=== PATIENT | female | born 1945 | race Caucasian/White ===

== ENCOUNTER 2016-10-23 13:12 | Inpatient (IN) | payer MEDICARE, OTHER ==
[2016-10-23] MEDS ORDERED: Morphine INJ* 4 MG/ML 1 ML CARPUJECT IV ONE ×2 (13:47→16:17)
[2016-10-23] MEDS ORDERED: Ondansetron INJ* 2 MG/ML VIAL IV ONE (13:47)
[2016-10-23] MEDS ORDERED: NS 0.9% 1000 ML* 1,000 ML IV SCH (14:00)
[2016-10-23 15:26] LABS: Urine Bacteria Absent (Absent); Urine Bilirubin Negative (Negative); Urine Glucose Negative (Negative); Urine Nitrite Negative (Negative)
--- NOTE | 2016-10-23 15:30 | RAD ---
INDICATION: Right hip injury. COMPARISON: There are no prior studies available for comparison. TECHNIQUE: An AP view of the pelvis and frontal and lateral views of the right hip were obtained. FINDINGS: There is a transverse slightly impacted subcapital right femoral neck fracture. No other fractures are seen. Incidental note is made of mild bilateral osteoarthritic change in the hips. IMPRESSION: TRANSVERSE SLIGHTLY IMPACTED SUBCAPITAL RIGHT FEMORAL NECK FRACTURE.
[2016-10-23 15:42] LABS: Hematocrit 47 % (35-47); Hemoglobin 15.6 g/dl (12.0-16.0); Mean Corpuscular HGB Conc 33 g/dl (31-36); Mean Corpuscular Hemoglobin 33 pg (27-31); Mean Corpuscular Volume 98 fL (80-97); Mean Platelet Volume 9 um3 (7.4-10.4); Red Blood Count 4.76 10^6/ul (4.0-5.4); Red Cell Distribution Width 13 % (10.5-15); White Blood Count 8.8 10^3/ul (3.5-10.8)
[2016-10-23 16:00] LABS: Albumin 4.4 g/dL (3.2-5.2); BUN/Creatinine Ratio 17.5 (8-20); Calcium 10.3 mg/dL (8.6-10.3); EGFR African American 72.6 (>60); EGFR Non-African American 56.5 (>60); Globulin 3.4 g/dL (2-4); Total Bilirubin 0.7 mg/dL (0.2-1.0); Total Protein 7.8 g/dL (6.4-8.9)
--- NOTE | 2016-10-23 16:06 | RAD ---
HISTORY: Fall, right hip pain, right hip fracture COMPARISONS: None VIEWS:1: Single frontal portable view of the chest at 3:40 PM FINDINGS: LINES AND TUBES: None. CARDIOMEDIASTINAL SILHOUETTE: The cardiomediastinal silhouette is normal for portable technique. PLEURA: The costophrenic angles are sharp. No pleural abnormalities are noted. LUNG PARENCHYMA: There is hyperinflation. ABDOMEN: The upper abdomen is clear. There is no subphrenic gas. BONES AND SOFT TISSUES: No bone or soft tissue abnormalities are noted. IMPRESSION: HYPERINFLATION CONSISTENT WITH COPD
--- NOTE | 2016-10-23 16:19 | ED ---
Khris Lr Aidan, scribed for Paulo Lam MD on 10/23/16 at 1411 . Adult Trauma - HPI Summary HPI Summary: 71 y/o female presents to the ED with a complaint of acute, constant, moderate, right pelvic pain that resulted from her tripping over her dog and falling onto her right hip earlier today. Advil and Aleve did not alleviate much pain. Pt denies any abdominal pain, neck pain, CP, or wrist pain. No reported LOC. Hx of osteoporosis and dementia. 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 Hx Last Menstrual Period: 71 y/o ?: No Mechanism of Injury: Fall - tripped over a dog Mechanism of Injury (MVC): VS Stationary Object - Pt tripped over a stationary dog Ambulatory at the Scene: No Loss of Consciousness: no loss of consciousness Force: Direct - direct fall onto right hip and pelvis Restraints: None Onset/Duration: Started Hours Ago, Still Present Onset of Pain: Immediate Onset Severity: Moderate Current Severity: Mild Location: Abdomen/Pelvis - right pelvis and right hip Character: Sharp Aggravating Factor(s): Other - unknown Alleviating Factor(s): Other - unknown, advil and aleve did not alleviate Associated Signs & Symptoms: Positive: Negative Related History: Other: - Hx: osteoperosis - Allergy/Home Medications Allergies/Adverse Reactions: Allergies Allergy/AdvReac Type Severity Reaction Status Date / Time No Known Drug Allergy Allergy none Verified 10/23/16 14:22 PMH/Surg Hx/FS Hx/Imm Hx Musculoskeletal History: Reports: Hx Osteoporosis Neurological History: Reports: Hx Dementia Infectious Disease History: Denies: Traveled Outside the [place] in Last 30 Days - Family History Known Family History: Positive: Hypertension - Social History Occupation: Retired Lives: Alone Alcohol Use: Rare Hx Substance Use: No Smoking Status (MU): Never Smoked Tobacco Review of Systems Constitutional: Negative Eyes: Negative ENT: Negative Cardiovascular: Negative Respiratory: Negative Gastrointestinal: Negative Genitourinary: Negative Positive: Arthralgia - right hip and pelvic pain. Negative: Myalgia, Decreased ROM, Edema Skin: Negative Neurological: Negative Psychological: Normal All Other Systems Reviewed And Are Negative: Yes Physical Exam Triage Information Reviewed: Yes Vital Signs On Initial Exam: Initial Vitals Resp 15 10/23/16 14:22 Appearance: Positive: Well-Appearing, No Pain Distress Skin: Positive: Warm, Skin Color Reflects Adequate Perfusion, Dry Head/Face: Positive: Normal Head/Face Inspection Eyes: Positive: EOMI, PRAKASH ENT: Positive: Normal ENT inspection Neck: Positive: Supple, Nontender Respiratory/Lung Sounds: Positive: Clear to Auscultation, Breath Sounds Present Cardiovascular: Positive: RRR Abdomen Description: Positive: Nontender, Soft Bowel Sounds: Positive: Present Musculoskeletal: Positive: Other - tender right hip, no deformity. Negative: Strength/ROM Intact - Pt does not want to move her right leg Neurological: Positive: Normal, Sensory/Motor Intact, Alert, Oriented to Person Place, Time, Other - Dementia Psychiatric: Positive: Normal, Affect/Mood Appropriate Diagnostics - Vital Signs Vital Signs Resp 10/23/16 14:22 15 - Laboratory Lab Results: Lab Results 10/23/16 10/23/16 10/23/16 Range/Units 15:05 15:05 15:05 WBC 8.8 (3.5-10.8) 10^3/ul RBC 4.76 (4.0-5.4) 10^6/ul Hgb 15.6 (12.0-16.0) g/dl Hct 47 (35-47) % MCV 98 H (80-97) fL MCH 33 H (27-31) pg MCHC 33 (31-36) g/dl RDW 13 (10.5-15) % Plt Count 269 (150-450) 10^3/ul MPV 9 (7.4-10.4) um3 Neut % (Auto) 77.7 (38-83) % Lymph % (Auto) 14.7 L (25-47) % [place]ck[place] % (Auto) 5.7 (1-9) % Eos % (Auto) 1.0 (0-6) % Baso % (Auto) 0.9 (0-2) % Absolute Neuts (auto) 6.9 (1.5-7.7) 10^3/ul Absolute Lymphs (auto) 1.3 (1.0-4.8) 10^3/ul Absolute Monos (auto) 0.5 (0-0.8) 10^3/ul Absolute Eos (auto) 0.1 (0-0.6) 10^3/ul Absolute Basos (auto) 0.1 (0-0.2) 10^3/ul Absolute Nucleated RBC 0 10^3/ul Nucleated RBC % 0 INR (Anticoag Therapy) 0.84 L (0.89-1.11) APTT 29.1 (26.0-36.3) seconds Sodium (133-145) mmol/L Potassium Chloride (101-111) mmol/L Carbon Dioxide (22-32) mmol/L Anion Gap BUN (6-24) mg/dL Creatinine (0.51-0.95) mg/dL Est GFR ( Amer) (>60) Est GFR (Non-Af Amer) (>60) BUN/Creatinine Ratio (8-20) Glucose (70-100) mg/dL Calcium (8.6-10.3) mg/dL Total Bilirubin (0.2-1.0) mg/dL AST ALT (7-52) U/L Alkaline Phosphatase (34-104) U/L Total Protein (6.4-8.9) g/dL Albumin (3.2-5.2) g/dL Globulin (2-4) g/dL Albumin/Globulin Ratio (1-3) Urine Color Straw Urine Appearance Clear Urine pH 7.0 (5-9) Ur Specific [place] 1.004 L (1.010-1.030) Urine Protein Negative (Negative) Urine Ketones Negative (Negative) Urine Blood 1+ H (Negative) Urine Nitrate Negative (Negative) Urine Bilirubin Negative (Negative) Urine Urobilinogen Negative (Negative) Ur Leukocyte Esterase Negative (Negative) Urine WBC (Auto) Absent (Absent) Urine RBC (Auto) Trace(0-2/hpf) (Absent) Urine Bacteria Absent (Absent) Urine Glucose Negative (Negative) 10/23/16 Range/Units 15:05 WBC (3.5-10.8) 10^3/ul RBC (4.0-5.4) 10^6/ul Hgb (12.0-16.0) g/dl Hct (35-47) % MCV (80-97) fL MCH (27-31) pg MCHC (31-36) g/dl RDW (10.5-15) % Plt Count (150-450) 10^3/ul MPV (7.4-10.4) um3 Neut % (Auto) (38-83) % Lymph % (Auto) (25-47) % Mck[place] % (Auto) (1-9) % Eos % (Auto) (0-6) % Baso % (Auto) (0-2) % Absolute Neuts (auto) (1.5-7.7) 10^3/ul Absolute Lymphs (auto) (1.0-4.8) 10^3/ul Absolute Monos (auto) (0-0.8) 10^3/ul Absolute Eos (auto) (0-0.6) 10^3/ul Absolute Basos (auto) (0-0.2) 10^3/ul Absolute Nucleated RBC 10^3/ul Nucleated RBC % INR (Anticoag Therapy) (0.89-1.11) APTT (26.0-36.3) seconds Sodium 140 (133-145) mmol/L Potassium Pending Chloride 108 (101-111) mmol/L Carbon Dioxide 26 (22-32) mmol/L Anion Gap Pending BUN 17 (6-24) mg/dL Creatinine 0.97 H (0.51-0.95) mg/dL Est GFR ( Amer) 72.6 (>60) Est GFR (Non-Af Amer) 56.5 (>60) BUN/Creatinine Ratio 17.5 (8-20) Glucose 100 (70-100) mg/dL Calcium 10.3 (8.6-10.3) mg/dL Total Bilirubin 0.70 (0.2-1.0) mg/dL AST Pending ALT 20 (7-52) U/L Alkaline Phosphatase 118 H (34-104) U/L Total Protein 7.8 (6.4-8.9) g/dL Albumin 4.4 (3.2-5.2) g/dL Globulin 3.4 (2-4) g/dL Albumin/Globulin Ratio 1.3 (1-3) Urine Color Urine Appearance Urine pH (5-9) Ur Specific [place] (1.010-1.030) Urine Protein (Negative) Urine Ketones (Negative) Urine Blood (Negative) Urine Nitrate (Negative) Urine Bilirubin (Negative) Urine Urobilinogen (Negative) Ur Leukocyte Esterase (Negative) Urine WBC (Auto) (Absent) Urine RBC (Auto) (Absent) Urine Bacteria (Absent) Urine Glucose (Negative) Result Diagrams: 10/23/16 15:05 10/23/16 15:05 Lab Statement: Any lab studies that have been ordered have been reviewed, and results considered in the medical decision making process. - Radiology HIP/PELVIS XR Xray Interpretation: Positive (See Comments) - IMPRESSION: TRANSVERSE SLIGHTLY IMPACTED SUBCAPITAL RIGHT FEMORAL NECK FRACTURE. Radiology Interpretation Completed By: Radiologist Adult Trauma Course/Dx - Course Assessment/Plan: DISCUSSED RESTULTS WITH FAMILY/PATIENT. DISCUSSED WITH ORTHOPEDICS AND HOSPITALIST. ADMIT HOSPITALIST STABLE. - Diagnoses Provider Diagnoses: Hip fracture - Physician Notifications Discussed Care Of Patient With: Hospitalist, Whitney (Dr. Herrera) Time Discussed With Above Provider: 15:47 - Dr. Lam discussed the positive radiology results. the patient will be admitted. Instructed by Provider To: Admit As Inpatient Discharge - Discharge Plan Condition: Stable Disposition: ADMITTED TO [facility] The documentation as recorded by the Khris gibbs Aidan accurately reflects the service I personally performed and the decisions made by , Paulo Lam MD.
[2016-10-23 16:29] LABS: Potassium 3.9 mmol/L (3.5-5.0)
[2016-10-23] MEDS ORDERED: Ondansetron INJ* 2 MG/ML VIAL IV PRN (17:15)
[2016-10-23] MEDS ORDERED: Acetaminophen TAB* 325 MG PO PRN (17:15)
[2016-10-23] MEDS ORDERED: oxyCODONE/Acetamin 5/325 MG* TAB PO PRN (17:15)
[2016-10-23] MEDS ORDERED: LORazepam TAB(*) 1 MG PO PRN (17:35)
[2016-10-23] MEDS ORDERED: Morphine INJ* 4 MG/ML 1 ML CARPUJECT IV PRN (17:35)
[2016-10-23] MEDS ORDERED: oxyCODONE/Acetamin 5/325 MG* TAB ONE (17:37)
[2016-10-23] MEDS ORDERED: Enoxaparin(*) 40 MG/0.4 ML SYR SUBCUT SCH (18:00)
[2016-10-23] MEDS ORDERED: Nicotine PATCH 14 MG/24 HR* PATCH TRANSDERM SCH (18:00)
--- NOTE | 2016-10-23 19:43 | HP ---
CONTINUATION ADDENDUM AND ADDITIONAL ADDENDUM NOW INCLUDED ON THIS REPORT * ADMISSION HISTORY AND PHYSICAL: DATE OF ADMISSION: 10/23/16 PRIMARY CARE PROVIDER: Johnathan Hudson MD ADMITTING PROVIDER: ELSI Amanda CONSULTING ORTHOPEDIST: Willy Herrera MD SUPERVISING PHYSICIAN: Tommy Cannon MD * (DICTATED BY ELSI AMANDA) CHIEF COMPLAINT: Right hip pain. HISTORY OF PRESENT ILLNESS: This is a 71-year-old female with severe dementia, history of TIAs, hypertension, and hyperlipidemia who presented after a fall at home with complaints of right hip pain. The patient tripped over her dog at home, immediately complaining of right hip pain and unable to ambulate. EMS was called and she was subsequently transported to the emergency department. No concern of syncope. The patient recently moved to the area and was living with her son and daughter- in- law. She moved here from [place] just about 3 weeks ago and has yet to see her new primary care provider, but does have a pending appointment with Dr. Hudson. There have been no recent illnesses or other acute complaints. She is at home signal timer with her xphfaevy-qf-htt and home healthcare comes in the middle of the day for additional assistance. According to her nhunoxfj-hr-jpd and son, her last hospital admission was in July, which is shortly after her . It sounds like she was admitted with acute delirium and was having significant behavioral outbursts and it was after that hospital admission, it sounds like decision was made to move her, appear to be signal timer. PAST MEDICAL HISTORY: 1. Severe dementia. 2. Hypertension. 3. Hyperlipidemia. 4. History of prior TIAs. PAST SURGICAL HISTORY: Uterine prolapse repair. HOME MEDICATIONS: 1. Lipitor 10 mg p.o. daily. 2. Benazepril 40 mg p.o. daily. 3. Oxybutynin 5 mg p.o. daily. 4. Seroquel 25 mg p.o. daily. 5. Amlodipine 2.5 mg p.o. daily. SOCIAL HISTORY: The patient recently moved in with her son and jmybvtlr-yy-tos about 3 weeks ago from [place]. She drinks 1 to 2 alcoholic beverages nightly and has a half a pack of cigarettes daily for the last 50 plus years. REVIEW OF SYSTEMS: The patient is unable to provide a full review of systems, but seems to be negative. Her only complaint is right hip pain at this time. LABORATORY EVALUATION: CBC shows a white blood cell count of 8800; hemoglobin of 15.6 g/dL; and a platelet count of 269,000. INR is normal at 0.84. PTT is normal at 29. Comprehensive metabolic panel is unremarkable with a sodium of 140 mmol/L, potassium 3.9 mmol/L, BUN of 17, and creatinine 0.97 with an estimated GFR of 56.5. Transaminases and total bilirubin were within normal limits. Urinalysis is unremarkable. DIAGNOSTIC STUDIES/IMAGING: Hip and pelvis x-ray shows an impacted right femoral neck fracture. Chest x-ray shows hyperinflation consistent with COPD, but no acute process. EKG is pending. PHYSICAL EXAMINATION INITIAL VITAL SIGNS: Pulse 85 beats per minute, respiratory rate 16 per minute , oxygen saturation 98% on room air, and blood pressure of 121/82 mmHg. GENERAL: This is a 71-year-old female that actually appears younger than her stated age who appears to be umiq-fv-iwdttvouxb uncomfortable. She is accompanied by her ftjbfodt-ce-csq and son. HEENT: Head is normocephalic, atraumatic. Mucous membranes are pink and moist. RESPIRATORY: Lungs are clear to auscultation without wheezes, crackles, or rhonchi. CARDIOVASCULAR: Heart has a regular rate and rhythm without murmurs, rubs, or gallops. ABDOMEN: Abdomen is soft and nontender to palpation. EXTREMITIES: Right lower extremity is externally rotated. No edema appreciated. Some tenderness to palpation over the right hip. SKIN: Limited exam, shows no concerning rashes or lesions. PSYCH: The patient is alert, but seems to be confused. ASSESSMENT AND PLAN: This is a 71-year-old female with advanced dementia as well as history of prior transient ischemic attacks, hypertension, and hyperlipidemia who presents after a fall at home sustaining a right femoral neck fracture. 1. Right femoral neck fracture - Dr. Herrera, orthopedic surgeon, is consulting with plans for fixation tomorrow afternoon. The patient is still having difficulty with pain control. She seems to be tolerating morphine well in the emergency department, but perhaps is not having significant lasting effect. We will try oral oxycodone. We could trial a muscle relaxant as well. The patient's family states that she trialed VALIUM in the past, which did not seem to have a significant sedating effect, but did cause confusion about 24 hours later. 2. Preoperative evaluation - the patient does not have any significant cardiopulmonary history. Her chest x-ray is certainly suggestive of chronic obstructive pulmonary disease. She does not carry a diagnosis of chronic obstructive pulmonary disease and she does have a significant smoking history. She is not hypoxic nor does she have any wheezing or rhonchi appreciated on exam. Her EKG is still pending at this time, but otherwise, there are no acute medical concerns that would prove to be an absolute contraindication to the planned procedure. We would recommend premedicating her with an albuterol neb prior to surgery. 3. Severe dementia - the patient does seem to be fairly appropriate with limited conversation, but is obviously confused. We will continue her home doses of Seroquel. Anticipate that she will likely experience some elements of delirium between the opioid medications in her hospitalization and pending surgery and did discuss this with the patient's family. 4. Hypertension: We will hold her amlodipine and benazepril perioperatively and can likely resume postop day 1. 5. Hyperlipidemia: Continue statin. 6. History of transient ischemic attacks - no obvious symptoms of transient ischemic attack or cerebrovascular accident contributing to this acute fall. 7. Code status: The patient's family reports that she is DNR. 8. Health care proxy is listed as her son, Joao Ellis. 9. DVT prophylaxis: We will place the patient on Lovenox 40 mg subcu daily with planned procedure tomorrow evening. Tomorrow's dose of Lovenox can be held and resumed per Orthopedic recommendations on postop day 1. DISPOSITION: The patient is being admitted to inpatient for right hip fracture. No absolute contraindication to planned surgical procedure for tomorrow. EKG is pending at this time. The patient will be n.p.o. to solids after midnight and completely n.p.o. starting at 1400 hours tomorrow per Anesthesia's recommendations. ELSI AMANDA ADDENDUM: Reviewed EKG performed in the emergency department, there is some significant artifact affecting the precordial leads, but no obvious signs of ischemia and it was difficult to get better quality EKG due to the patient's level of cooperation. Based on these findings, there is no absolute contraindication to plan surgical procedure for tomorrow. ELSI AMANDA CC: Dr. Hudson * [id number]/CPS #: [id number]/CPS #: [id number]/CPS #: [id number] MTDRody
--- NOTE | 2016-10-23 19:43 | CONS ---
CONSULTATION REPORT: DATE OF CONSULT: 10/23/16 CHIEF COMPLAINT: Right hip injury. HISTORY OF PRESENT ILLNESS: Obtained from the patient's daughter. The patient is a 71-year-old female who presented to the emergency room approximately 1 o' clock this afternoon with complaints of right hip pain after she tripped and fell over her dog at home. The patient has a home health aide during the middle of the day who was present with the patient at the time of the injury. She states that there was no loss of consciousness or head injury at the time. The patient was unable to get up off the floor and EMS was called. She denies history of injury to the hip previously. She denies any paresthesias or numbness distally. PAST MEDICAL HISTORY: Hypertension, hyperlipidemia, dementia, questionable TIAs. RECENT HOSPITALIZATIONS: The patient was admitted in July for altered mental status after the of her . PAST SURGICAL HISTORY: Uterine prolapse repair. CURRENT MEDICATIONS: 1. Lipitor 10 mg p.o. q. day. 2. Oxybutynin XL 5 mg p.o. q.a.m. 3. Amlodipine 2.5 mg p.o. q.a.m. 4. Lotensin 40 mg p.o. q.p.m. 5. Seroquel 25 mg p.o. q.a.m. and 1400. ALLERGIES: No known drug allergies. SOCIAL HISTORY: The patient lives with her daughter. She smokes a half a pack of cigarettes per day. She drinks 1 to 2 alcoholic beverages per day. REVIEW OF SYSTEMS: Unable to obtain due to dementia. PHYSICAL EXAM: The patient is 5 feet 6 inches, 120 pounds, blood pressure 121/ 82, pulse is 85, respirations 16. General: She is a well-developed, thin female, in no acute distress at rest. She is alert; however, she is only oriented to self. HEENT: Normocephalic, atraumatic. Her hearing and vision are grossly intact. Neck: Supple. Trachea is midline. There is no lymphadenopathy. Cardiovascular: Regular rate and rhythm. No murmurs, rubs, or gallops. Lungs are clear to auscultation bilaterally, although slightly diminished bilaterally. Abdomen is soft, nondistended, and nontender. Extremities: Exam of the right lower extremity, skin is intact without abrasions or open wounds. There is no edema, ecchymosis, or gross deformity. The patient is significantly tender to palpation over the anterior and lateral aspect of the hip and proximal thigh. She is nontender throughout the knee or lower leg. She is able to dorsiflex and plantar flex at the ankle. She has full flexion and extension of her MTP joints. Sensation to light touch is intact to all nerve distributions. She has a 2+ dorsalis pedis pulse. DIAGNOSTIC STUDIES/LAB DATA: Imaging: AP and lateral hip and AP pelvis were obtained and reviewed. They showed a transverse slightly impacted subcapital right femoral neck fracture. Laboratory data: White blood cells 8.8, hemoglobin 15.6, hematocrit 47, platelet count 269. INR 0.84, PTT 29.1. Chemistry is within normal limits. IMPRESSION: Ms. Garner is a 71-year-old female with a history of severe dementia, who presents to the emergency room with an impacted femoral neck fracture. PLAN: It was discussed with the patient's daughter, who is her historian that the patient will undergo right hip ORIF by Dr. Herrera on 10/24/16. The patient will be admitted to the medical service at this time. Orthopedics will continue to follow. Thank you for this consultation. ELSI OLIVARES [id number]/[facility] [place] #: [id number] MTDD
--- NOTE | 2016-10-23 19:51 | HP ---
CC: Dr. Hudson ADMISSION HISTORY AND PHYSICAL: DATE OF ADMISSION: 10/23/16 ADDENDUM: PHYSICAL EXAMINATION GENERAL: This is a 71-year-old female that actually appears younger than her stated age who appears to be ickd-lb-fyqqqdfnnv uncomfortable. She is accompanied by her raeolvxb-cf-smx and son. HEENT: Head is normocephalic, atraumatic. Mucous membranes are pink and moist. RESPIRATORY: Lungs are clear to auscultation without wheezes, crackles, or rhonchi. CARDIOVASCULAR: Heart has a regular rate and rhythm without murmurs, rubs, or gallops. ABDOMEN: Abdomen is soft and nontender to palpation. EXTREMITIES: Right lower extremity is externally rotated. No edema appreciated. Some tenderness to palpation over the right hip. SKIN: Limited exam, shows no concerning rashes or lesions. PSYCH: The patient is alert, but seems to be confused. ASSESSMENT AND PLAN: This is a 71-year-old female with advanced dementia as well as history of prior transient ischemic attacks, hypertension, and hyperlipidemia who presents after a fall at home sustaining a right femoral neck fracture. 1. Right femoral neck fracture - Dr. Herrera, orthopedic surgeon, is consulting with plans for fixation tomorrow afternoon. The patient is still having difficulty with pain control. She seems to be tolerating morphine well in the emergency department, but perhaps is not having significant lasting effect. We will try oral oxycodone. We could trial a muscle relaxant as well. The patient's family states that she trialed VALIUM in the past, which did not seem to have a significant sedating effect, but did cause confusion about 24 hours later. 2. Preoperative evaluation - the patient does not have any significant cardiopulmonary history. Her chest x-ray is certainly suggestive of chronic obstructive pulmonary disease. She does not carry a diagnosis of chronic obstructive pulmonary disease and she does have a significant smoking history. She is not hypoxic nor does she have any wheezing or rhonchi appreciated on exam. Her EKG is still pending at this time, but otherwise, there are no acute medical concerns that would prove to be an absolute contraindication to the planned procedure. We would recommend premedicating her with an albuterol neb prior to surgery. This might be helpful to avoid significant desaturations by promoting larger dilatation perioperatively. 3. Severe dementia - the patient does seem to be fairly appropriate with limited conversation, but is obviously confused. We will continue her home doses of Seroquel. Anticipate that she will likely experience some elements of delirium between the opioid medications in her hospitalization and pending surgery and did discuss this with the patient's family. 4. Hypertension: We will hold her amlodipine and benazepril perioperatively and can likely resume postop day 1. 5. Hyperlipidemia: Continue statin. 6. History of transient ischemic attacks - no obvious symptoms of transient ischemic attack or cerebrovascular accident contributing to this acute fall. 7. Code status: The patient's family reports that she is DNR. 8. Health care proxy is listed as her son, Joao Ellis. 9. DVT prophylaxis: We will place the patient on Lovenox 40 mg subcu daily with planned procedure tomorrow evening. Tomorrow's dose of Lovenox can be held and resumed per Orthopedic recommendations on postop day 1. DISPOSITION: The patient is being admitted to inpatient for right hip fracture. No absolute contraindication to planned surgical procedure for tomorrow. EKG is pending at this time. The patient will be n.p.o. to solids after midnight and completely n.p.o. starting at 1400 hours tomorrow per Anesthesia's recommendations. ELSI AMANDA [id number]/CPS #: [id number] MTDD
--- NOTE | 2016-10-23 20:59 | HP ---
ADMISSION HISTORY AND PHYSICAL: ADDENDUM: Reviewed EKG performed in the emergency department, there is some significant artifact affecting the precordial leads, but no obvious signs of ischemia and it was difficult to get better quality EKG due to the patient's level of cooperation. Based on these findings, there is no absolute contraindication to plan surgical procedure for tomorrow. ELSI AMANDA [id number]/[facility] #: [id number] LEONARDO
[2016-10-23] MEDS: Morphine INJ* 4 MG/ML 1 ML CARPUJECT IV PRN (23:32)
[2016-10-24] MEDS: Morphine INJ* 4 MG/ML 1 ML CARPUJECT IV PRN ×3 (06:29→23:02)
[2016-10-24 06:57] LABS: Hematocrit 39 % (35-47); Mean Corpuscular HGB Conc 34 g/dl (31-36); Mean Corpuscular Hemoglobin 33 pg (27-31); Mean Corpuscular Volume 98 fL (80-97); Mean Platelet Volume 8 um3 (7.4-10.4); Red Blood Count 3.95 10^6/ul (4.0-5.4); Red Cell Distribution Width 13 % (10.5-15); White Blood Count 6.1 10^3/ul (3.5-10.8)
[2016-10-24 08:00] LABS: BUN/Creatinine Ratio 17.4 (8-20); Calcium 9.1 mg/dL (8.6-10.3); EGFR African American 77.2 (>60)
[2016-10-24 08:18] LABS: Potassium 3.8 mmol/L (3.5-5.0)
[2016-10-24] MEDS: Nicotine PATCH 14 MG/24 HR* PATCH TRANSDERM SCH (09:13)
[2016-10-24] MEDS: Atorvastatin* 10 MG TAB PO SCH (09:13)
[2016-10-24] MEDS: QUEtiapine TAB* 25 MG PO SCH ×2 (09:13→14:47)
[2016-10-24] MEDS ORDERED: Bupivacaine 0.25% SDV* 30 ML ONE (14:13)
[2016-10-24] MEDS ORDERED: ceFAZolin 2 GM PREMIX (*) 2 GM/50 ML BAG IVPB ONE (14:33)
[2016-10-24] MEDS ORDERED: Buffered Lidocaine 1% SYR 3ML* 3 ML/SYR SYRINGE ONE (14:36)
[2016-10-24] MEDS ORDERED: Midazolam* 1 MG/ML 5 ML VIAL (5 MG) ONE (14:53)
[2016-10-24] MEDS ORDERED: EPHEDrine (Pressors)* 50 MG/ML VIAL ONE (15:30)
[2016-10-24] MEDS ORDERED: Phenylephrine IV* 40 MCG/ML 10 ML SYRINGE ONE (15:44)
[2016-10-24] MEDS ORDERED: Ondansetron INJ* 2 MG/ML VIAL IV PRN (16:03)
--- NOTE | 2016-10-24 16:50 | RAD ---
CPT II Codes: 6045F INDICATION: Right hip ORIF TECHNIQUE: Intraoperative fluoroscopy was provided during medullary screw ORIF of a right hip fracture. FINDINGS: 4 spot films depict anatomic placement of 3 medullary screws spanning the right femoral neck and greater trochanter. Fluoroscopy time: 39 seconds IMPRESSION: As above.
--- NOTE | 2016-10-24 17:48 | PN ---
Subjective Date of Service: 10/24/16 Interval History: Sleeping comfortably Discussed care with family at bedside Objective Active Medications: Acetaminophen (Tylenol Tab*) 650 mg PO Q4H PRN PRN Reason: FEVER/PAIN Atorvastatin Calcium (Lipitor*) 10 mg PO DAILY [facility] Last Admin: 10/24/16 09:13 Dose: 10 mg Lorazepam (Ativan Tab(*)) 1 mg PO Q6H PRN PRN Reason: muscle spasm Morphine Sulfate (Morphine Inj (Syringe)*) 4 mg IV Q2H PRN PRN Reason: PAIN Last Admin: 10/24/16 09:16 Dose: 4 mg Nicotine (Nicotine Patch 14 Mg/24 Hr*) 1 patch TRANSDERM Q24HR [facility] Last Admin: 10/24/16 09:13 Dose: Not Given Ondansetron HCl (Zofran Inj*) 4 mg IV Q4H PRN PRN Reason: NAUSEA/VOMITING Ondansetron HCl (Zofran Inj*) 4 mg IV ONCE PRN PRN Reason: NAUSEA/VOMITING Stop: 10/24/16 21:03 Oxycodone/Acetaminophen (Percocet 5/325 Tab*) 1 tab PO Q4H PRN PRN Reason: Pain Last Admin: 10/23/16 17:39 Dose: 1 tab Pharmacy Profile Note (Nicotine Patch Removal Note*) 1 note PATCH OFF 2100 [facility] Quetiapine Fumarate (Seroquel Tab*) 25 mg PO 0900,1400 [facility] Last Admin: 10/24/16 14:47 Dose: Not Given Vital Signs 10/23/16 10/23/16 10/23/16 18:14 18:15 18:24 Temperature 99.6 F 99.6 F Pulse Rate 83 83 Respiratory 16 16 Rate Blood Pressure 129/70 129/70 (mmHg) O2 Sat by Pulse 100 100 Oximetry 10/23/16 10/23/16 10/23/16 19:23 19:24 19:39 Temperature 98.9 F Pulse Rate 82 Respiratory 16 16 18 Rate Blood Pressure 142/61 (mmHg) O2 Sat by Pulse 97 Oximetry 10/23/16 10/23/16 10/24/16 23:32 23:50 00:32 Temperature 98.6 F Pulse Rate 75 Respiratory 20 16 18 Rate Blood Pressure 124/64 (mmHg) O2 Sat by Pulse 97 Oximetry 10/24/16 10/24/16 10/24/16 03:24 06:29 07:29 Temperature 98.9 F Pulse Rate 64 Respiratory 16 22 20 Rate Blood Pressure 117/66 (mmHg) O2 Sat by Pulse 96 Oximetry 10/24/16 10/24/16 10/24/16 07:30 07:45 09:16 Temperature 98.9 F Pulse Rate 81 Respiratory 20 18 18 Rate Blood Pressure 120/64 (mmHg) O2 Sat by Pulse 96 Oximetry 10/24/16 10/24/16 10/24/16 10:16 13:36 14:22 Temperature 98.6 F 99.5 F Pulse Rate 79 91 Respiratory 16 18 15 Rate Blood Pressure 120/71 132/72 (mmHg) O2 Sat by Pulse 97 95 Oximetry 10/24/16 10/24/16 10/24/16 16:00 16:05 16:10 Temperature 99.0 F Pulse Rate 81 77 61 Respiratory 12 12 12 Rate Blood Pressure 104/47 96/49 96/53 (mmHg) O2 Sat by Pulse 100 100 100 Oximetry 10/24/16 10/24/16 10/24/16 16:15 16:30 16:45 Temperature Pulse Rate 70 74 80 Respiratory 12 12 14 Rate Blood Pressure 117/52 96/48 96/57 (mmHg) O2 Sat by Pulse 99 99 97 Oximetry Oxygen Devices in Use Now: None Appearance: NAD Eyes: No Scleral Icterus, PERRLA Ears/Nose/Mouth/Throat: NL Teeth, Lips, Gums, Clear Oropharnyx, Mucous Membranes Moist Neck: NL Appearance and Movements; NL JVP, Trachea Midline Respiratory: Symmetrical Chest Expansion and Respiratory Effort, Clear to Auscultation Cardiovascular: NL Sounds; No Murmurs; No JVD, RRR Abdominal: NL Sounds; No Tenderness; No Distention, No Hepatosplenomegaly Lymphatic: No Cervical Adenopathy Neurological: - - Asleep, wakes easy to name Result Diagrams: 10/24/16 06:39 10/24/16 06:39 Additional Lab and Data: Lab Results 10/23/16 10/23/16 10/23/16 Range/Units 15:05 15:05 15:05 WBC 8.8 (3.5-10.8) 10^3/ul RBC 4.76 (4.0-5.4) 10^6/ul Hgb 15.6 (12.0-16.0) g/dl Hct 47 (35-47) % MCV 98 H (80-97) fL MCH 33 H (27-31) pg MCHC 33 (31-36) g/dl RDW 13 (10.5-15) % Plt Count 269 (150-450) 10^3/ul MPV 9 (7.4-10.4) um3 Neut % (Auto) 77.7 (38-83) % Lymph % (Auto) 14.7 L (25-47) % [place] % (Auto) 5.7 (1-9) % Eos % (Auto) 1.0 (0-6) % Baso % (Auto) 0.9 (0-2) % Absolute Neuts (auto) 6.9 (1.5-7.7) 10^3/ul Absolute Lymphs (auto) 1.3 (1.0-4.8) 10^3/ul Absolute Monos (auto) 0.5 (0-0.8) 10^3/ul Absolute Eos (auto) 0.1 (0-0.6) 10^3/ul Absolute Basos (auto) 0.1 (0-0.2) 10^3/ul Absolute Nucleated RBC 0 10^3/ul Nucleated RBC % 0 INR (Anticoag Therapy) 0.84 L (0.89-1.11) APTT 29.1 (26.0-36.3) seconds Sodium (133-145) mmol/L Potassium Chloride (101-111) mmol/L Carbon Dioxide (22-32) mmol/L Anion Gap BUN (6-24) mg/dL Creatinine (0.51-0.95) mg/dL Est GFR ( Amer) (>60) Est GFR (Non-Af Amer) (>60) BUN/Creatinine Ratio (8-20) Glucose (70-100) mg/dL Calcium (8.6-10.3) mg/dL Total Bilirubin (0.2-1.0) mg/dL AST ALT (7-52) U/L Alkaline Phosphatase (34-104) U/L Total Protein (6.4-8.9) g/dL Albumin (3.2-5.2) g/dL Globulin (2-4) g/dL Albumin/Globulin Ratio (1-3) Urine Color Straw Urine Appearance Clear Urine pH 7.0 (5-9) Ur Specific [place] 1.004 L (1.010-1.030) Urine Protein Negative (Negative) Urine Ketones Negative (Negative) Urine Blood 1+ H (Negative) Urine Nitrate Negative (Negative) Urine Bilirubin Negative (Negative) Urine Urobilinogen Negative (Negative) Ur Leukocyte Esterase Negative (Negative) Urine WBC (Auto) Absent (Absent) Urine RBC (Auto) Trace(0-2/hpf) (Absent) Urine Bacteria Absent (Absent) Urine Glucose Negative (Negative) 10/23/16 Range/Units 15:05 WBC (3.5-10.8) 10^3/ul RBC (4.0-5.4) 10^6/ul Hgb (12.0-16.0) g/dl Hct (35-47) % MCV (80-97) fL MCH (27-31) pg MCHC (31-36) g/dl RDW (10.5-15) % Plt Count (150-450) 10^3/ul MPV (7.4-10.4) um3 Neut % (Auto) (38-83) % Lymph % (Auto) (25-47) % [place] % (Auto) (1-9) % Eos % (Auto) (0-6) % Baso % (Auto) (0-2) % Absolute Neuts (auto) (1.5-7.7) 10^3/ul Absolute Lymphs (auto) (1.0-4.8) 10^3/ul Absolute Monos (auto) (0-0.8) 10^3/ul Absolute Eos (auto) (0-0.6) 10^3/ul Absolute Basos (auto) (0-0.2) 10^3/ul Absolute Nucleated RBC 10^3/ul Nucleated RBC % INR (Anticoag Therapy) (0.89-1.11) APTT (26.0-36.3) seconds Sodium 140 (133-145) mmol/L Potassium Pending Chloride 108 (101-111) mmol/L Carbon Dioxide 26 (22-32) mmol/L Anion Gap Pending BUN 17 (6-24) mg/dL Creatinine 0.97 H (0.51-0.95) mg/dL Est GFR ( Amer) 72.6 (>60) Est GFR (Non-Af Amer) 56.5 (>60) BUN/Creatinine Ratio 17.5 (8-20) Glucose 100 (70-100) mg/dL Calcium 10.3 (8.6-10.3) mg/dL Total Bilirubin 0.70 (0.2-1.0) mg/dL AST Pending ALT 20 (7-52) U/L Alkaline Phosphatase 118 H (34-104) U/L Total Protein 7.8 (6.4-8.9) g/dL Albumin 4.4 (3.2-5.2) g/dL Globulin 3.4 (2-4) g/dL Albumin/Globulin Ratio 1.3 (1-3) Urine Color Urine Appearance Urine pH (5-9) Ur Specific [place] (1.010-1.030) Urine Protein (Negative) Urine Ketones (Negative) Urine Blood (Negative) Urine Nitrate (Negative) Urine Bilirubin (Negative) Urine Urobilinogen (Negative) Ur Leukocyte Esterase (Negative) Urine WBC (Auto) (Absent) Urine RBC (Auto) (Absent) Urine Bacteria (Absent) Urine Glucose (Negative) Assess/Plan/Problems-Billing Assessment: 71 yo F with advanced frontotemproal dementia, HTN, HLD, h/o TIAs, p/w mechanical fall and femoral neck fracture - Patient Problems (1) Femoral neck fracture Comment: to OR today unclear how she will cooperate with PT/OT (2) Frontotemporal dementia Comment: seroquel suspect behavioral disturbances to develop and will need tx as appropriate. Family expects and understands this senario (3) Hypertension Comment: holding meds reassess after surgery (4) Hyperlipidemia Comment: atorvastatin 10mg (5) DVT prophylaxis Comment: per ortho
[2016-10-24] MEDS ORDERED: Morphine INJ* 2 MG/ML 1 ML CARPUJECT IV PRN (20:53)
[2016-10-24] MEDS: Acetaminop/Codeine 30 MG TAB* 1 TAB (300 MG/30 MG) PO PRN (21:10)
[2016-10-24] MEDS: Nicotine Patch Removal NOTE PATCH OFF SCH (21:36)
[2016-10-24] MEDS: ceFAZolin 1 GM in Dextrose (*) 1 GM/50 ML BAG IVPB SCH (22:37)
[2016-10-24] MEDS ORDERED: QUEtiapine TAB* 25 MG PO ONE (22:50)
[2016-10-25] MEDS: Morphine INJ* 4 MG/ML 1 ML CARPUJECT IV PRN ×4 (02:28→21:54)
[2016-10-25] MEDS: ceFAZolin 1 GM in Dextrose (*) 1 GM/50 ML BAG IVPB SCH (06:00)
[2016-10-25 06:13] LABS: Hematocrit 37 % (35-47); Hemoglobin 12.5 g/dl (12.0-16.0); Mean Corpuscular HGB Conc 34 g/dl (31-36); Mean Corpuscular Hemoglobin 33 pg (27-31); Mean Corpuscular Volume 98 fL (80-97); Mean Platelet Volume 8 um3 (7.4-10.4); Red Blood Count 3.75 10^6/ul (4.0-5.4); Red Cell Distribution Width 13 % (10.5-15); White Blood Count 7.1 10^3/ul (3.5-10.8)
[2016-10-25 06:29] LABS: BUN/Creatinine Ratio 14.3 (8-20); Calcium 8.8 mg/dL (8.6-10.3); EGFR African American 105.8 (>60); EGFR Non-African American 82.3 (>60); Potassium 3.4 mmol/L (3.5-5.0)
[2016-10-25] MEDS ORDERED: Potassium Chlor TAB* 20 MEQ TAB.ER PO ONE (07:21)
[2016-10-25] MEDS: Atorvastatin* 10 MG TAB PO SCH (09:43)
[2016-10-25] MEDS: Acetaminop/Codeine 30 MG TAB* 1 TAB (300 MG/30 MG) PO PRN ×2 (09:43→21:53)
[2016-10-25] MEDS: QUEtiapine TAB* 25 MG PO SCH ×2 (09:43→14:07)
[2016-10-25] MEDS: Heparin VIAL(*) 5000 UNITS/ML VIAL (FIVE THOUSAND) SUBCUT SCH ×2 (09:47→21:53)
[2016-10-25] MEDS: Nicotine PATCH 14 MG/24 HR* PATCH TRANSDERM SCH (09:48)
[2016-10-25] MEDS ORDERED: Haloperidol INJ IV/IM* 5 MG/ML AMP ONE (16:19)
--- NOTE | 2016-10-25 17:54 | PN ---
Subjective Date of Service: 10/25/16 Interval History: Seen and examined. has no complaints. She is AOx1 and unable to participate meaningfully in the ROS Objective Active Medications: Acetaminophen (Tylenol Tab*) 650 mg PO Q4H PRN PRN Reason: FEVER/PAIN Acetaminophen/Codeine Phosphate (Tylenol/Codeine 30 Mg Tab*) 1 tab PO Q4H PRN PRN Reason: PAIN - MODERATE Last Admin: 10/25/16 09:43 Dose: 1 tab Atorvastatin Calcium (Lipitor*) 10 mg PO DAILY [facility] Last Admin: 10/25/16 09:43 Dose: 10 mg Haloperidol Lactate (Haldol Inj Iv/Im*) 2 mg IV SLOW PU Q6H PRN PRN Reason: AGITATION Heparin Sodium (Porcine) (Heparin Vial(*)) 5,000 units SUBCUT BID [facility] Last Admin: 10/25/16 09:47 Dose: 5,000 units Lactated Ringer's (Lactated Ringers 1000 Ml Bag*) 1,000 mls @ 100 mls/hr IV PER RATE [facility] Last Admin: 10/24/16 21:20 Dose: 100 mls/hr Lorazepam (Ativan Tab(*)) 1 mg PO Q6H PRN PRN Reason: muscle spasm Morphine Sulfate (Morphine Inj (Syringe)*) 4 mg IV Q2H PRN PRN Reason: PAIN Last Admin: 10/25/16 15:06 Dose: 4 mg Nicotine (Nicotine Patch 14 Mg/24 Hr*) 1 patch TRANSDERM Q24HR [facility] Last Admin: 10/25/16 09:48 Dose: Not Given Ondansetron HCl (Zofran Inj*) 4 mg IV Q4H PRN PRN Reason: NAUSEA/VOMITING Pharmacy Profile Note (Nicotine Patch Removal Note*) 1 note PATCH OFF 2100 [facility] Last Admin: 10/24/16 21:36 Dose: Not Given Quetiapine Fumarate (Seroquel Tab*) 25 mg PO 0900,1400 [facility] Last Admin: 10/25/16 14:07 Dose: 25 mg Vital Signs 10/24/16 10/24/16 10/24/16 18:00 18:30 19:00 Temperature Pulse Rate 71 66 71 Respiratory 14 12 14 Rate Blood Pressure 117/61 119/65 144/73 (mmHg) O2 Sat by Pulse 95 95 97 Oximetry 10/24/16 10/24/16 10/24/16 19:30 20:00 20:30 Temperature 98.2 F 98.2 F Pulse Rate 69 71 56 Respiratory 16 14 17 Rate Blood Pressure 139/72 139/71 140/70 (mmHg) O2 Sat by Pulse 98 97 99 Oximetry 10/24/16 10/24/16 10/24/16 21:10 21:31 21:37 Temperature 98.8 F Pulse Rate 84 Respiratory 17 17 16 Rate Blood Pressure 143/61 (mmHg) O2 Sat by Pulse 99 Oximetry 10/24/16 10/24/16 10/24/16 22:31 22:43 23:02 Temperature 98.7 F Pulse Rate 123 Respiratory 17 18 17 Rate Blood Pressure 140/78 (mmHg) O2 Sat by Pulse 94 Oximetry 10/24/16 10/25/16 10/25/16 23:10 00:02 00:13 Temperature 98.1 F Pulse Rate 96 Respiratory 17 17 18 Rate Blood Pressure 158/69 (mmHg) O2 Sat by Pulse 94 Oximetry 10/25/16 10/25/16 10/25/16 02:28 02:31 03:28 Temperature 98.1 F Pulse Rate 87 Respiratory 17 18 16 Rate Blood Pressure 139/72 (mmHg) O2 Sat by Pulse 94 Oximetry 10/25/16 10/25/16 10/25/16 04:24 05:49 06:49 Temperature 98.5 F Pulse Rate 96 Respiratory 16 17 16 Rate Blood Pressure 126/70 (mmHg) O2 Sat by Pulse 94 Oximetry 10/25/16 10/25/16 10/25/16 07:34 08:00 09:43 Temperature 98.6 F Pulse Rate 83 Respiratory 16 16 16 Rate Blood Pressure 145/67 (mmHg) O2 Sat by Pulse 94 94 Oximetry 10/25/16 10/25/16 10/25/16 11:43 15:06 16:06 Temperature Pulse Rate Respiratory 16 16 18 Rate Blood Pressure (mmHg) O2 Sat by Pulse Oximetry 10/25/16 16:20 Temperature 98.3 F Pulse Rate 125 Respiratory Rate Blood Pressure 125/80 (mmHg) O2 Sat by Pulse 98 Oximetry Oxygen Devices in Use Now: None Appearance: NAD Eyes: No Scleral Icterus, PERRLA Ears/Nose/Mouth/Throat: Clear Oropharnyx, Mucous Membranes Moist Neck: NL Appearance and Movements; NL JVP, Trachea Midline Respiratory: Symmetrical Chest Expansion and Respiratory Effort, Clear to Auscultation Cardiovascular: RRR Abdominal: NL Sounds; No Tenderness; No Distention, No Hepatosplenomegaly Lymphatic: No Cervical Adenopathy Neurological: - - AOx1 Result Diagrams: 10/25/16 05:36 10/25/16 05:36 Additional Lab and Data: Lab Results 10/23/16 10/23/16 10/23/16 Range/Units 15:05 15:05 15:05 WBC 8.8 (3.5-10.8) 10^3/ul RBC 4.76 (4.0-5.4) 10^6/ul Hgb 15.6 (12.0-16.0) g/dl Hct 47 (35-47) % MCV 98 H (80-97) fL MCH 33 H (27-31) pg MCHC 33 (31-36) g/dl RDW 13 (10.5-15) % Plt Count 269 (150-450) 10^3/ul MPV 9 (7.4-10.4) um3 Neut % (Auto) 77.7 (38-83) % Lymph % (Auto) 14.7 L (25-47) % [place] % (Auto) 5.7 (1-9) % Eos % (Auto) 1.0 (0-6) % Baso % (Auto) 0.9 (0-2) % Absolute Neuts (auto) 6.9 (1.5-7.7) 10^3/ul Absolute Lymphs (auto) 1.3 (1.0-4.8) 10^3/ul Absolute Monos (auto) 0.5 (0-0.8) 10^3/ul Absolute Eos (auto) 0.1 (0-0.6) 10^3/ul Absolute Basos (auto) 0.1 (0-0.2) 10^3/ul Absolute Nucleated RBC 0 10^3/ul Nucleated RBC % 0 INR (Anticoag Therapy) 0.84 L (0.89-1.11) APTT 29.1 (26.0-36.3) seconds Sodium (133-145) mmol/L Potassium Chloride (101-111) mmol/L Carbon Dioxide (22-32) mmol/L Anion Gap BUN (6-24) mg/dL Creatinine (0.51-0.95) mg/dL Est GFR ( Amer) (>60) Est GFR (Non-Af Amer) (>60) BUN/Creatinine Ratio (8-20) Glucose (70-100) mg/dL Calcium (8.6-10.3) mg/dL Total Bilirubin (0.2-1.0) mg/dL AST ALT (7-52) U/L Alkaline Phosphatase (34-104) U/L Total Protein (6.4-8.9) g/dL Albumin (3.2-5.2) g/dL Globulin (2-4) g/dL Albumin/Globulin Ratio (1-3) Urine Color Straw Urine Appearance Clear Urine pH 7.0 (5-9) Ur Specific [place] 1.004 L (1.010-1.030) Urine Protein Negative (Negative) Urine Ketones Negative (Negative) Urine Blood 1+ H (Negative) Urine Nitrate Negative (Negative) Urine Bilirubin Negative (Negative) Urine Urobilinogen Negative (Negative) Ur Leukocyte Esterase Negative (Negative) Urine WBC (Auto) Absent (Absent) Urine RBC (Auto) Trace(0-2/hpf) (Absent) Urine Bacteria Absent (Absent) Urine Glucose Negative (Negative) 10/23/16 Range/Units 15:05 WBC (3.5-10.8) 10^3/ul RBC (4.0-5.4) 10^6/ul Hgb (12.0-16.0) g/dl Hct (35-47) % MCV (80-97) fL MCH (27-31) pg MCHC (31-36) g/dl RDW (10.5-15) % Plt Count (150-450) 10^3/ul MPV (7.4-10.4) um3 Neut % (Auto) (38-83) % Lymph % (Auto) (25-47) % [place] % (Auto) (1-9) % Eos % (Auto) (0-6) % Baso % (Auto) (0-2) % Absolute Neuts (auto) (1.5-7.7) 10^3/ul Absolute Lymphs (auto) (1.0-4.8) 10^3/ul Absolute Monos (auto) (0-0.8) 10^3/ul Absolute Eos (auto) (0-0.6) 10^3/ul Absolute Basos (auto) (0-0.2) 10^3/ul Absolute Nucleated RBC 10^3/ul Nucleated RBC % INR (Anticoag Therapy) (0.89-1.11) APTT (26.0-36.3) seconds Sodium 140 (133-145) mmol/L Potassium Pending Chloride 108 (101-111) mmol/L Carbon Dioxide 26 (22-32) mmol/L Anion Gap Pending BUN 17 (6-24) mg/dL Creatinine 0.97 H (0.51-0.95) mg/dL Est GFR ( Amer) 72.6 (>60) Est GFR (Non-Af Amer) 56.5 (>60) BUN/Creatinine Ratio 17.5 (8-20) Glucose 100 (70-100) mg/dL Calcium 10.3 (8.6-10.3) mg/dL Total Bilirubin 0.70 (0.2-1.0) mg/dL AST Pending ALT 20 (7-52) U/L Alkaline Phosphatase 118 H (34-104) U/L Total Protein 7.8 (6.4-8.9) g/dL Albumin 4.4 (3.2-5.2) g/dL Globulin 3.4 (2-4) g/dL Albumin/Globulin Ratio 1.3 (1-3) Urine Color Urine Appearance Urine pH (5-9) Ur Specific [place] (1.010-1.030) Urine Protein (Negative) Urine Ketones (Negative) Urine Blood (Negative) Urine Nitrate (Negative) Urine Bilirubin (Negative) Urine Urobilinogen (Negative) Ur Leukocyte Esterase (Negative) Urine WBC (Auto) (Absent) Urine RBC (Auto) (Absent) Urine Bacteria (Absent) Urine Glucose (Negative) Assess/Plan/Problems-Billing Assessment: 71 yo F with advanced frontotemproal dementia, HTN, HLD, h/o TIAs, p/w mechanical fall and femoral neck fracture s/p pinning 10/24 - Patient Problems (1) Femoral neck fracture Comment: PT/OT (2) Frontotemporal dementia Comment: seroquel haldol PRN (3) Hypertension Comment: holding meds (4) Hyperlipidemia Comment: atorvastatin 10mg (5) DVT prophylaxis Comment: SQH
[2016-10-25] MEDS: Nicotine Patch Removal NOTE PATCH OFF SCH (21:54)
--- NOTE | 2016-10-26 01:20 | OP ---
DATE OF OPERATION: 10/24/16 - ROOM #337 DATE OF : [birth year] - AGE: 71. SURGICAL CARE: Right hip. SURGEON: Herb Jeffery MD ANESTHESIOLOGIST: Osbaldo Oh MD ANESTHESIA: Spinal with IV sedation. PRE-OP DIAGNOSIS: Right femoral neck fracture, very slight displacement. POST-OP DIAGNOSIS: Right femoral neck fracture, very slight displacement. OPERATIVE PROCEDURE: Right hip closed reduction followed by percutaneous internal fixation with three screws. COMPLICATIONS: There were no complications. DRAINS: There were no drains. BLOOD LOSS: 10 mL. REPLACEMENT: Crystalloid fluids. OPERATIVE INDICATIONS: Right femoral neck fracture very slight displacement. BRIEF HISTORY: This 71-year-old woman has severe dementia. She is cared for by her local family and unfortunately on 10/23/16, she dripped over a dog and fell and she was unable to walk subsequent to that and ambulance was called and she was brought to the hospital. I met the patient this morning and spoke with her [id number]. The patient' s examination shows that she is pleasant and responsive. She was able to lift her left leg. She was not able to lift her right knee. The right hip tender laterally and nontender anteriorly and posteriorly. Right thigh nonswollen and nontender. Right knee nonswollen. Right leg and left leg no swelling bilaterally. The right posterior tibial pulse is 2+ and good color in the right foot. The radiographs show impacted valgus fracture of the right femoral neck on the AP view and on the lateral view very slight displacement. DESCRIPTION OF PROCEDURE: The patient was brought to the operating room in the hospital bed and the spinal anesthetic was administered by Dr. Oh. She was then carefully placed on to the fracture table with the right lower extremity placed on very gentle longitudinal traction after doing reduction maneuver of gentle external rotation of the right hip followed by longitudinal traction and then internal rotation on the right lower extremity. Her right leg prior of this was shortened and a little bit externally rotated. The right foot was placed into a foot piece with internal rotation of the right knee, the patella was internally rotated somewhat past the anterior position. The left hip was placed in a sling and the hip was abducted, flexed and internally rotated some. The x-ray unit was brought into position showing on the AP view an impacted valgus alignment and on a lateral view, there was improved alignment of the neck and head and this position was accepted. We did our universal protocol time-out and we did a prep and drape after preliminary chlorhexidine prep. We confirmed Luisana Garner on universal protocol. The fluoroscopic unit was brought into position and the skin was marked for a small incision over the lateral femoral cortex. The skin and subcu divided. The deep fascia was divided and then a straight clamp was advanced down to the bone. Following this, three 7.3 cannulated screws were put into position. The first guidewire inserted was the most distal and it was brought up the femoral neck trying to stay as close to the calcar as possible. Once guidewire position was accepted on AP and lateral views and then a 7.3 screw was inserted and the position was accepted. The second guidewire was proximal to the first and somewhat anterior, its position was accepted in the femoral head and neck fracture. In the meantime, any traction had been taken off of the femur to start to encourage impaction at the fracture site. Then a third screw was inserted in the similar manner proximally and posterior to the first. Position of all screws was accepted. Fracture alignment appeared to be satisfactory. Final portable radiographs were obtained AP and lateral and then the wound was irrigated with saline and then carefully dried. The skin was closed with interrupted 3-0 Surgipros in vertical mattress fashion. Marcaine 0.25% without epinephrine was inserted down to the bone 20 mL and the hip was dressed with Betadine soaked release, sterile gauze, paper tape, 6 inch ELLIOTT bandage around the thigh and then that was held with paper tape as well. The patient was returned to the hospital bed in the recovery room in stable and satisfactory condition. The right lower extremity is no longer externally rotated and procedure was well tolerated. [id number]/[facility] #: [id number] LEONARDO
[2016-10-26] MEDS: Acetaminop/Codeine 30 MG TAB* 1 TAB (300 MG/30 MG) PO PRN ×3 (03:16→18:17)
[2016-10-26] MEDS: Haloperidol INJ IV/IM* 5 MG/ML AMP IV SLOW PU PRN ×3 (03:17→18:14)
[2016-10-26 07:05] LABS: Hematocrit 35 % (35-47); Hemoglobin 11.8 g/dl (12.0-16.0)
[2016-10-26] MEDS: Atorvastatin* 10 MG TAB PO SCH (08:35)
[2016-10-26] MEDS: QUEtiapine TAB* 25 MG PO SCH ×2 (08:35→14:29)
[2016-10-26] MEDS: Nicotine PATCH 14 MG/24 HR* PATCH TRANSDERM SCH (08:36)
[2016-10-26] MEDS: Heparin VIAL(*) 5000 UNITS/ML VIAL (FIVE THOUSAND) SUBCUT SCH ×2 (08:36→20:32)
[2016-10-26] MEDS: Morphine INJ* 4 MG/ML 1 ML CARPUJECT IV PRN ×2 (08:44→21:46)
--- NOTE | 2016-10-26 17:22 | PN ---
Subjective Date of Service: 10/26/16 Interval History: has required haldol for patient safety Family was initially upset she was not receiving it more however after discussion about how nursing was determining it's PRN availability the appeared without malice. Objective Active Medications: Acetaminophen (Tylenol Tab*) 650 mg PO Q4H PRN PRN Reason: FEVER/PAIN Acetaminophen/Codeine Phosphate (Tylenol/Codeine 30 Mg Tab*) 1 tab PO Q4H PRN PRN Reason: PAIN - MODERATE Last Admin: 10/26/16 11:49 Dose: 1 tab Atorvastatin Calcium (Lipitor*) 10 mg PO DAILY [facility] Last Admin: 10/26/16 08:35 Dose: 10 mg Haloperidol Lactate (Haldol Inj Iv/Im*) 2 mg IV SLOW PU Q6H PRN PRN Reason: AGITATION Last Admin: 10/26/16 11:43 Dose: 2 mg Heparin Sodium (Porcine) (Heparin Vial(*)) 5,000 units SUBCUT BID [facility] Last Admin: 10/26/16 08:36 Dose: 5,000 units Lactated Ringer's (Lactated Ringers 1000 Ml Bag*) 1,000 mls @ 100 mls/hr IV PER RATE [facility] Last Admin: 10/24/16 21:20 Dose: 100 mls/hr Lorazepam (Ativan Tab(*)) 1 mg PO Q6H PRN PRN Reason: muscle spasm Morphine Sulfate (Morphine Inj (Syringe)*) 4 mg IV Q2H PRN PRN Reason: PAIN Last Admin: 10/26/16 08:44 Dose: 4 mg Nicotine (Nicotine Patch 14 Mg/24 Hr*) 1 patch TRANSDERM Q24HR [facility] Last Admin: 10/26/16 08:36 Dose: 1 patch Ondansetron HCl (Zofran Inj*) 4 mg IV Q4H PRN PRN Reason: NAUSEA/VOMITING Pharmacy Profile Note (Nicotine Patch Removal Note*) 1 note PATCH OFF 2100 [facility] Last Admin: 10/25/16 21:54 Dose: Not Given Quetiapine Fumarate (Seroquel Tab*) 25 mg PO 0900,1400 [facility] Last Admin: 10/26/16 14:29 Dose: 25 mg Vital Signs 10/25/16 10/25/16 10/25/16 20:13 20:48 21:53 Temperature 99.6 F Pulse Rate 103 Respiratory 16 16 Rate Blood Pressure 133/93 (mmHg) O2 Sat by Pulse 98 Oximetry 10/25/16 10/25/16 10/25/16 21:54 22:54 23:44 Temperature 98.1 F Pulse Rate 94 Respiratory 16 16 16 Rate Blood Pressure 132/74 (mmHg) O2 Sat by Pulse 97 Oximetry 10/25/16 10/26/16 10/26/16 23:53 00:00 03:10 Temperature 97.4 F Pulse Rate 110 Respiratory 16 Rate Blood Pressure 144/75 (mmHg) O2 Sat by Pulse 97 96 Oximetry 10/26/16 10/26/16 10/26/16 03:16 05:16 07:58 Temperature 98.1 F Pulse Rate 72 Respiratory 16 16 14 Rate Blood Pressure 126/70 (mmHg) O2 Sat by Pulse 97 Oximetry 10/26/16 10/26/16 10/26/16 08:00 08:44 09:44 Temperature Pulse Rate Respiratory 16 18 16 Rate Blood Pressure (mmHg) O2 Sat by Pulse Oximetry 10/26/16 10/26/16 10/26/16 11:23 11:49 15:19 Temperature 99.7 F 97.9 F Pulse Rate 88 90 Respiratory 16 15 20 Rate Blood Pressure 91/48 156/68 (mmHg) O2 Sat by Pulse 97 98 Oximetry Oxygen Devices in Use Now: None Appearance: sitting in chair, NAD Eyes: No Scleral Icterus, PERRLA Ears/Nose/Mouth/Throat: Clear Oropharnyx, Mucous Membranes Moist Neck: NL Appearance and Movements; NL JVP, Trachea Midline Respiratory: Symmetrical Chest Expansion and Respiratory Effort, Clear to Auscultation Cardiovascular: RRR Lymphatic: No Cervical Adenopathy Neurological: - - AOx1 Result Diagrams: 10/26/16 06:31 10/25/16 05:36 Additional Lab and Data: Lab Results 10/23/16 10/23/16 10/23/16 Range/Units 15:05 15:05 15:05 WBC 8.8 (3.5-10.8) 10^3/ul RBC 4.76 (4.0-5.4) 10^6/ul Hgb 15.6 (12.0-16.0) g/dl Hct 47 (35-47) % MCV 98 H (80-97) fL MCH 33 H (27-31) pg MCHC 33 (31-36) g/dl RDW 13 (10.5-15) % Plt Count 269 (150-450) 10^3/ul MPV 9 (7.4-10.4) um3 Neut % (Auto) 77.7 (38-83) % Lymph % (Auto) 14.7 L (25-47) % [place] % (Auto) 5.7 (1-9) % Eos % (Auto) 1.0 (0-6) % Baso % (Auto) 0.9 (0-2) % Absolute Neuts (auto) 6.9 (1.5-7.7) 10^3/ul Absolute Lymphs (auto) 1.3 (1.0-4.8) 10^3/ul Absolute Monos (auto) 0.5 (0-0.8) 10^3/ul Absolute Eos (auto) 0.1 (0-0.6) 10^3/ul Absolute Basos (auto) 0.1 (0-0.2) 10^3/ul Absolute Nucleated RBC 0 10^3/ul Nucleated RBC % 0 INR (Anticoag Therapy) 0.84 L (0.89-1.11) APTT 29.1 (26.0-36.3) seconds Sodium (133-145) mmol/L Potassium Chloride (101-111) mmol/L Carbon Dioxide (22-32) mmol/L Anion Gap BUN (6-24) mg/dL Creatinine (0.51-0.95) mg/dL Est GFR ( Amer) (>60) Est GFR (Non-Af Amer) (>60) BUN/Creatinine Ratio (8-20) Glucose (70-100) mg/dL Calcium (8.6-10.3) mg/dL Total Bilirubin (0.2-1.0) mg/dL AST ALT (7-52) U/L Alkaline Phosphatase (34-104) U/L Total Protein (6.4-8.9) g/dL Albumin (3.2-5.2) g/dL Globulin (2-4) g/dL Albumin/Globulin Ratio (1-3) Urine Color Straw Urine Appearance Clear Urine pH 7.0 (5-9) Ur Specific [place] 1.004 L (1.010-1.030) Urine Protein Negative (Negative) Urine Ketones Negative (Negative) Urine Blood 1+ H (Negative) Urine Nitrate Negative (Negative) Urine Bilirubin Negative (Negative) Urine Urobilinogen Negative (Negative) Ur Leukocyte Esterase Negative (Negative) Urine WBC (Auto) Absent (Absent) Urine RBC (Auto) Trace(0-2/hpf) (Absent) Urine Bacteria Absent (Absent) Urine Glucose Negative (Negative) 10/23/16 Range/Units 15:05 WBC (3.5-10.8) 10^3/ul RBC (4.0-5.4) 10^6/ul Hgb (12.0-16.0) g/dl Hct (35-47) % MCV (80-97) fL MCH (27-31) pg MCHC (31-36) g/dl RDW (10.5-15) % Plt Count (150-450) 10^3/ul MPV (7.4-10.4) um3 Neut % (Auto) (38-83) % Lymph % (Auto) (25-47) % Richmond % (Auto) (1-9) % Eos % (Auto) (0-6) % Baso % (Auto) (0-2) % Absolute Neuts (auto) (1.5-7.7) 10^3/ul Absolute Lymphs (auto) (1.0-4.8) 10^3/ul Absolute Monos (auto) (0-0.8) 10^3/ul Absolute Eos (auto) (0-0.6) 10^3/ul Absolute Basos (auto) (0-0.2) 10^3/ul Absolute Nucleated RBC 10^3/ul Nucleated RBC % INR (Anticoag Therapy) (0.89-1.11) APTT (26.0-36.3) seconds Sodium 140 (133-145) mmol/L Potassium Pending Chloride 108 (101-111) mmol/L Carbon Dioxide 26 (22-32) mmol/L Anion Gap Pending BUN 17 (6-24) mg/dL Creatinine 0.97 H (0.51-0.95) mg/dL Est GFR ( Amer) 72.6 (>60) Est GFR (Non-Af Amer) 56.5 (>60) BUN/Creatinine Ratio 17.5 (8-20) Glucose 100 (70-100) mg/dL Calcium 10.3 (8.6-10.3) mg/dL Total Bilirubin 0.70 (0.2-1.0) mg/dL AST Pending ALT 20 (7-52) U/L Alkaline Phosphatase 118 H (34-104) U/L Total Protein 7.8 (6.4-8.9) g/dL Albumin 4.4 (3.2-5.2) g/dL Globulin 3.4 (2-4) g/dL Albumin/Globulin Ratio 1.3 (1-3) Urine Color Urine Appearance Urine pH (5-9) Ur Specific [place] (1.010-1.030) Urine Protein (Negative) Urine Ketones (Negative) Urine Blood (Negative) Urine Nitrate (Negative) Urine Bilirubin (Negative) Urine Urobilinogen (Negative) Ur Leukocyte Esterase (Negative) Urine WBC (Auto) (Absent) Urine RBC (Auto) (Absent) Urine Bacteria (Absent) Urine Glucose (Negative) Assess/Plan/Problems-Billing Assessment: 71 yo F with advanced frontotemproal dementia, HTN, HLD, h/o TIAs, p/w mechanical fall and femoral neck fracture s/p pinning 10/24 - Patient Problems (1) Femoral neck fracture Comment: PT/OT (2) Frontotemporal dementia Comment: seroquel haldol PRN (3) Hypertension Comment: holding meds (4) Hyperlipidemia Comment: atorvastatin 10mg (5) DVT prophylaxis Comment: [facility]
[2016-10-26] MEDS: Nicotine Patch Removal NOTE PATCH OFF SCH (20:35)
[2016-10-27] MEDS: Morphine INJ* 4 MG/ML 1 ML CARPUJECT IV PRN (03:41)
[2016-10-27] MEDS: Heparin VIAL(*) 5000 UNITS/ML VIAL (FIVE THOUSAND) SUBCUT SCH (08:51)
[2016-10-27] MEDS: Nicotine PATCH 14 MG/24 HR* PATCH TRANSDERM SCH (08:51)
[2016-10-27] MEDS: QUEtiapine TAB* 25 MG PO SCH ×2 (08:52→14:38)
[2016-10-27] MEDS: Atorvastatin* 10 MG TAB PO SCH (08:52)
[2016-10-27] MEDS: Acetaminop/Codeine 30 MG TAB* 1 TAB (300 MG/30 MG) PO PRN ×2 (08:58→14:38)
--- NOTE | 2016-10-27 12:42 | PN ---
Progress Note - Progress Note SOAP: Subjective: [71 y/o female s/p ORIF right hip. Patient denies pain, baseline dementia, calm. ambulatory throughout hallways without difficulty. ] Objective: [General- Sitting in hallway with aide, NAD MSK- no swelling, erythema noted around R leg, neg homans sign b/l, + dorsiflexion/ plantarflexion b/l, equal strength. Dressing intact. Vital Signs Temp 98.0 F 10/27/16 07:20 Pulse 91 10/27/16 07:20 Resp 16 10/27/16 08:58 BP 142/78 10/27/16 07:20 Pulse Ox 97 10/27/16 07:20 Intake & Output 10/26/16 10/27/16 10/27/16 18:59 06:59 18:59 Intake Total 1600 520 480 Output Total 1200 800 360 Balance 400 -280 120 Intake: Oral 1600 520 480 Output: Urine 1200 800 360 Other: Estimated Void Medium Date of Last Bowel 10/27/16 Movement # Bowel Movements 1 Estimated Stool Amount Small # Voids 1 ] Assessment: [[71 y/o female s/p ORIF right hip] Plan: [- Continue heparin for DVT, ASA upon D/C. - Continue hospialist care - Continue PT/ OT - FOllow up with Dr. Jeffery within 3-4 weeks from surgery date, call for appointment - weight bearing as tolerated Active Medications Generic Name Dose Route Start Last Admin Trade Name Freq PRN Reason Stop Dose Admin Acetaminophen 650 mg 10/23/16 17:15 Tylenol Tab* PO Q4H PRN FEVER/PAIN Acetaminophen/Codeine Phosphate 1 tab 10/24/16 20:52 10/27/16 08:58 Tylenol/Codeine 30 Mg Tab* PO 1 tab Q4H PRN Administration PAIN - MODERATE Atorvastatin Calcium 10 mg 10/24/16 09:00 10/27/16 08:52 Lipitor* PO 10 mg DAILY [facility] Administration Haloperidol Lactate 2 mg 10/25/16 16:05 10/26/16 18:14 Haldol Inj Iv/Im* IV SLOW PU 2 mg Q6H PRN Administration AGITATION Heparin Sodium (Porcine) 5,000 units 10/25/16 09:00 10/27/16 08:51 Heparin Vial(*) SUBCUT 5,000 units BID [facility] Administration Lactated Ringer's 1,000 mls @ 100 mls/hr 10/24/16 21:00 10/24/16 21:20 Lactated Ringers 1000 Ml Bag* IV 100 mls/hr PER RATE [facility] Administration Lorazepam 1 mg 10/23/16 17:35 Ativan Tab(*) PO Q6H PRN muscle spasm Morphine Sulfate 4 mg 10/24/16 22:49 10/27/16 03:41 Morphine Inj (Syringe)* IV 4 mg Q2H PRN Administration PAIN Nicotine 1 patch 10/24/16 09:00 10/27/16 08:51 Nicotine Patch 14 Mg/24 Hr* TRANSDERM 1 patch Q24HR [facility] Administration Ondansetron HCl 4 mg 10/23/16 17:15 Zofran Inj* IV Q4H PRN NAUSEA/VOMITING Pharmacy Profile Note 1 note 10/24/16 21:00 10/26/16 20:35 Nicotine Patch Removal Note* PATCH OFF 1 note 2100 [facility] Administration Quetiapine Fumarate 25 mg 10/24/16 09:00 10/27/16 08:52 Seroquel Tab* PO 25 mg 0900,1400 [facility] Administration
[2016-10-27 15:32] VITALS: BP 143/76
--- NOTE | 2016-10-28 02:48 | DS ---
DISCHARGE/ADMISSION NOTE: For transition to swing status. DATE OF ADMISSION: 10/23/16 DATE OF TRANSITION TO SWING STATUS AT [facility]: 10/27/16 PRIMARY CARE PROVIDER: Dr. Hudson. PRIMARY DIAGNOSIS: Includes right femoral neck fracture. SECONDARY DIAGNOSES: Include: 1. Hypertension. 2. Frontotemporal dementia. 3. Hyperlipidemia. 4. History of transient ischemic attacks. MEDICATIONS: At the time of transfer or transition to swing status include: 1. Amlodipine 2.5 mg daily. 2. Seroquel 25 mg twice daily. 3. Zofran 4 mg IV every 4 hours as needed for nausea. 4. Nicotine patch 14 mg. 5. Morphine IV 4 mg every 2 hours as needed for pain. 6. Lorazepam 1 mg every 6 hours as needed for anxiety or agitation. 7. Haloperidol 2 mg IV every 6 hours as needed for agitation. 8. Lipitor 10 mg daily. 9. Acetaminophen 650 mg every 4 hours as needed for pain. HISTORY OF PRESENT ILLNESS AND HOSPITAL COURSE: A 71-year-old female with a past medical history of frontotemporal dementia, as well as hypertension and hyperlipidemia. Had a fall at home, fracture of her right femoral neck. Underwent right ORIF with pitting of her hip without complication. Status post procedure, the patient was improving nicely; however, had difficulty working with Physical Therapy secondary to her advanced dementia. She did require intermittent Haldol as she becomes aggressive with the staff. She is currently weightbearing as tolerated. She will be transitioned to swing status as disposition seems tenuous at this time. Multiple rehab facilities have opted not to accept her secondary to her behavioral disturbances. Please note other home medications not restarted at the time of transfer to swing status include benazepril 40 mg and oxybutynin 5 mg. There have been no complications during the course of this hospital stay. TIME SPENT: Greater than 45 minutes was spent in the transfer of this patient, discharge and admission of this patient to swing status. [id number]/[facility] #: [id number] [facility]
--- NOTE | 2016-12-01 12:27 | ED ---
IKhris Aidan, scribed for Paulo Lam MD on 10/23/16 at 1921 . Progress - Progress Note Progress Note: CHEST XR IMPRESSION: HYPERINFLATION CONSISTENT WITH COPD Course/Dx - Diagnoses Provider Diagnoses: Hip fracture - Provider Notifications Discussed Care Of Patient With: Hospitalist, Whitney (Dr. Herrera) Time Discussed With Above Provider: 15:47 - Dr. Lam discussed the positive radiology results. the patient will be admitted. Instructed by Provider To: Admit As Inpatient The documentation as recorded by the Khris gibbs Aidan accurately reflects the service I personally performed and the decisions made by , Paulo Lam MD.
== END 2016-10-27 15:55 | disposition swing bed (61) | DRG 482 ==
LOC: ED 13:12 → SSU 17:04
PROVIDERS: ADMIT Internal Medicine; ATTEND Internal Medicine
PROC: 0QS634Z Reposition Right Upper Femur with Internal Fixation Device, Percutaneous Approach (ICD-10-PCS; principal; 2016-10-24 16:30)
DX: S72.011A Unspecified intracapsular fracture of right femur, initial encounter for closed fracture (principal); J44.9 Chronic obstructive pulmonary disease, unspecified; G31.09 Other frontotemporal neurocognitive disorder; F02.80 Dementia in other diseases classified elsewhere, unspecified severity, without behavioral disturbance, psychotic disturbance, mood disturbance, and anxiety; I10 Essential (primary) hypertension; F17.210 Nicotine dependence, cigarettes, uncomplicated; E78.5 Hyperlipidemia, unspecified; W01.0XXA Fall on same level from slipping, tripping and stumbling without subsequent striking against object, initial encounter; Y92.009 Unspecified place in unspecified non-institutional (private) residence as the place of occurrence of the external cause; Z86.73 Personal history of transient ischemic attack (TIA), and cerebral infarction without residual deficits; Z79.899 Other long term (current) drug therapy
CPT/HCPCS: 36415; 71010; 80048; 80053; 81003; 81015; 85014; 85018; 85025; 85610; 85730; 93005; A9270-GY; C1713; J0690; J1630; J1644; J1650; J2250; J2270; J2405

== ENCOUNTER 2016-10-27 15:55 | Inpatient (IN) | payer MEDICARE, OTHER ==
[2016-10-27] MEDS ORDERED: Haloperidol INJ IV/IM* 5 MG/ML AMP ONE (16:38)
[2016-10-27] MEDS ORDERED: Haloperidol INJ IV/IM* 5 MG/ML AMP IV SLOW PU ONE (17:00)
[2016-10-27] MEDS ORDERED: oxyCODONE/Acetamin 5/325 MG* TAB PO PRN (17:14)
[2016-10-27] MEDS ORDERED: Acetaminophen TAB* 325 MG PO PRN (17:14)
[2016-10-27] MEDS ORDERED: Morphine INJ* 4 MG/ML 1 ML CARPUJECT IV PRN (17:17)
[2016-10-27] MEDS ORDERED: Haloperidol INJ IV/IM* 5 MG/ML AMP IV SLOW PU PRN (17:17)
[2016-10-27] MEDS ORDERED: Ondansetron INJ* 2 MG/ML VIAL IV PRN (17:17)
[2016-10-27] MEDS: Enoxaparin(*) 40 MG/0.4 ML SYR SUBCUT SCH (17:57)
--- NOTE | 2016-10-27 18:08 | PN ---
Subjective Date of Service: 10/27/16 Interval History: Seen and examined Unable to participate meaningfully in ROS Does enjoy wheeling around floor in wheelchair per staff. Objective Active Medications: Acetaminophen (Tylenol Tab*) 650 mg PO Q4H PRN PRN Reason: FEVER/PAIN Amlodipine Besylate (Norvasc Tab*) 2.5 mg PO QAM [facility] Atorvastatin Calcium (Lipitor*) 10 mg PO DAILY [facility] Docusate Sodium (Colace Cap*) 100 mg PO BID [facility] Enoxaparin Sodium (Lovenox(*)) 40 mg SUBCUT Q24H [facility] Last Admin: 10/27/16 17:57 Dose: 40 mg Haloperidol Lactate (Haldol Inj Iv/Im*) 2 mg IV SLOW PU Q6H PRN PRN Reason: AGITATION Lorazepam (Ativan Tab(*)) 1 mg PO Q6H PRN PRN Reason: muscle spasm Morphine Sulfate (Morphine Inj (Syringe)*) 4 mg IV Q2H PRN PRN Reason: PAIN Nicotine (Nicotine Patch 14 Mg/24 Hr*) 1 patch TRANSDERM Q24HR [facility] Ondansetron HCl (Zofran Inj*) 4 mg IV Q4H PRN PRN Reason: NAUSEA/VOMITING Oxycodone/Acetaminophen (Percocet 5/325 Tab*) 1 tab PO Q4H PRN PRN Reason: Pain Pharmacy Profile Note (Nicotine Patch Removal Note*) 1 note PATCH OFF 2100 [facility] Quetiapine Fumarate (Seroquel Tab*) 25 mg PO 0900,1400 [facility] Vital Signs 10/27/16 17:08 Temperature 98.0 F Pulse Rate 132 Respiratory 16 Rate Blood Pressure 141/89 (mmHg) O2 Sat by Pulse 100 Oximetry Oxygen Devices in Use Now: None Appearance: NAD, sitting in wheelchair Eyes: No Scleral Icterus, PERRLA Ears/Nose/Mouth/Throat: Clear Oropharnyx, Mucous Membranes Moist Neck: NL Appearance and Movements; NL JVP, Trachea Midline Respiratory: Symmetrical Chest Expansion and Respiratory Effort, Clear to Auscultation Cardiovascular: RRR Extremities: No Edema Neurological: - - AOx1 to name Assess/Plan/Problems-Billing Assessment: 71 yo F h/o frontotemporal dementia, HTN/HLD, h/o TIA p/w femoral neck fracture after mechanical fall - Patient Problems (1) Femoral neck fracture Comment: PT/OT (2) Frontotemporal dementia Comment: seroquel haldol PRN No disruptive behavior with PRN haldol. (3) Hypertension Comment: restart amlodipine (4) DVT prophylaxis Comment: lovenox and ASA (per ortho)
[2016-10-27] MEDS: Docusate CAP* 100 MG PO SCH (21:34)
[2016-10-27] MEDS: Nicotine Patch Removal NOTE PATCH OFF SCH (21:35)
[2016-10-28] MEDS: Nicotine PATCH 14 MG/24 HR* PATCH TRANSDERM SCH ×2 (09:13→14:37)
[2016-10-28] MEDS: amLODIPine TAB* 5 MG PO SCH (09:13)
[2016-10-28] MEDS: QUEtiapine TAB* 25 MG PO SCH ×2 (09:13→14:05)
[2016-10-28] MEDS: Docusate CAP* 100 MG PO SCH ×2 (09:13→22:21)
[2016-10-28] MEDS: Aspirin EC Low Dose* 81 MG TAB.EC PO SCH (09:13)
[2016-10-28] MEDS: Atorvastatin* 10 MG TAB PO SCH (09:13)
--- NOTE | 2016-10-28 09:32 | PN ---
Subjective Date of Service: 10/28/16 Interval History: Patient cannot account for herself. She does not know how long she has been in hospital. Does not remember RT hip surgery. Denies pain. Can transfer w/ assist. Family History: Unchanged from Admission Social History: Unchanged from Admission Past Medical History: Unchanged from Admission Objective Active Medications: Acetaminophen (Tylenol Tab*) 650 mg PO Q4H PRN PRN Reason: FEVER/PAIN Amlodipine Besylate (Norvasc Tab*) 2.5 mg PO QAM [facility] Last Admin: 10/28/16 09:13 Dose: 2.5 mg Aspirin (Aspirin Ec Low Dose*) 81 mg PO DAILY [facility] Last Admin: 10/28/16 09:13 Dose: 81 mg Atorvastatin Calcium (Lipitor*) 10 mg PO DAILY [facility] Last Admin: 10/28/16 09:13 Dose: 10 mg Docusate Sodium (Colace Cap*) 100 mg PO BID [facility] Last Admin: 10/28/16 09:13 Dose: 100 mg Enoxaparin Sodium (Lovenox(*)) 40 mg SUBCUT Q24H [facility] Last Admin: 10/27/16 17:57 Dose: 40 mg Haloperidol Lactate (Haldol Inj Iv/Im*) 2 mg IV SLOW PU Q6H PRN PRN Reason: AGITATION Lorazepam (Ativan Tab(*)) 1 mg PO Q6H PRN PRN Reason: muscle spasm Morphine Sulfate (Morphine Inj (Syringe)*) 4 mg IV Q2H PRN PRN Reason: PAIN Nicotine (Nicotine Patch 14 Mg/24 Hr*) 1 patch TRANSDERM Q24HR [facility] Last Admin: 10/28/16 09:13 Dose: Not Given Ondansetron HCl (Zofran Inj*) 4 mg IV Q4H PRN PRN Reason: NAUSEA/VOMITING Oxycodone/Acetaminophen (Percocet 5/325 Tab*) 1 tab PO Q4H PRN PRN Reason: Pain Pharmacy Profile Note (Nicotine Patch Removal Note*) 1 note PATCH OFF 2100 [facility] Last Admin: 10/27/16 21:35 Dose: 1 note Quetiapine Fumarate (Seroquel Tab*) 25 mg PO 0900,1400 [facility] Last Admin: 10/28/16 09:13 Dose: 25 mg Vital Signs 10/28/16 07:19 Temperature 36.8 C Pulse Rate 89 Respiratory 18 Rate Blood Pressure 138/82 (mmHg) O2 Sat by Pulse 98 Oximetry Oxygen Devices in Use Now: None Appearance: alert, awake Neck: NL Appearance and Movements; NL JVP Respiratory: Clear to Auscultation Cardiovascular: NL Sounds; No Murmurs; No JVD, RRR Lymphatic: No Cervical Adenopathy Extremities: - - RT hip bandage C/D/I Neurological: - - oriented to 1st name only Lines/Tubes/Other Access: Clean, Dry and Intact Peripheral IV Assess/Plan/Problems-Billing Assessment: 71 yo F h/o frontotemporal dementia, HTN/HLD, h/o TIA p/w femoral neck fracture after mechanical fall, now repaired successfully. - Patient Problems (1) DVT prophylaxis Current Visit: Yes Status: Acute Priority: Low Code(s): BUF9219 - SNOMED Code(s): 520328805 Comment: lovenox and ASA (per ortho) (2) Femoral neck fracture Current Visit: Yes Status: Acute Priority: High Code(s): S72.009A - FRACTURE OF UNSP PART OF NECK OF UNSP FEMUR, INIT SNOMED Code(s): 9393442 Comment: shoudl continue PT/OT (3) Frontotemporal dementia Current Visit: Yes Status: Acute Code(s): G31.09 - OTHER FRONTOTEMPORAL DEMENTIA; F02.80 - DEMENTIA IN OTH DISEASES CLASSD ELSWHR W/O BEHAVRL DISTURB SNOMED Code(s): 367775771 Comment: Continue seroquel No disruptive behavior with PRN haldol. Awaiting SNF placement
[2016-10-28] MEDS: LORazepam TAB(*) 1 MG PO PRN (14:06)
[2016-10-28] MEDS: Enoxaparin(*) 40 MG/0.4 ML SYR SUBCUT SCH (18:07)
[2016-10-28] MEDS: Nicotine Patch Removal NOTE PATCH OFF SCH (22:55)
[2016-10-29] MEDS: LORazepam TAB(*) 1 MG PO PRN ×2 (01:11→21:16)
[2016-10-29] MEDS: QUEtiapine TAB* 25 MG PO SCH ×2 (08:38→15:04)
[2016-10-29] MEDS: amLODIPine TAB* 5 MG PO SCH (08:38)
[2016-10-29] MEDS: Nicotine PATCH 14 MG/24 HR* PATCH TRANSDERM SCH (08:38)
[2016-10-29] MEDS: Atorvastatin* 10 MG TAB PO SCH (08:39)
[2016-10-29] MEDS: Aspirin EC Low Dose* 81 MG TAB.EC PO SCH (08:39)
[2016-10-29] MEDS: Docusate CAP* 100 MG PO SCH ×2 (08:39→21:16)
[2016-10-29] MEDS: Enoxaparin(*) 40 MG/0.4 ML SYR SUBCUT SCH (16:39)
[2016-10-30] MEDS: Nicotine Patch Removal NOTE PATCH OFF SCH (00:57)
[2016-10-30 07:46] VITALS: BP 145/78
[2016-10-30] MEDS: Atorvastatin* 10 MG TAB PO SCH (08:27)
[2016-10-30] MEDS: Nicotine PATCH 14 MG/24 HR* PATCH TRANSDERM SCH (08:27)
[2016-10-30] MEDS: QUEtiapine TAB* 25 MG PO SCH (08:27)
[2016-10-30] MEDS: Docusate CAP* 100 MG PO SCH (08:27)
[2016-10-30] MEDS: amLODIPine TAB* 5 MG PO SCH (08:27)
[2016-10-30] MEDS: Aspirin EC Low Dose* 81 MG TAB.EC PO SCH (08:27)
--- NOTE | 2016-10-30 12:21 | DCNOTE ---
Subjective Date of Service: 10/30/16 Interval History: No c/o. Very littel pain, even while walking (with a walker). Family History: Unchanged from Admission Social History: Unchanged from Admission Past Medical History: Unchanged from Admission Objective Active Medications: Acetaminophen (Tylenol Tab*) 650 mg PO Q4H PRN PRN Reason: FEVER/PAIN Amlodipine Besylate (Norvasc Tab*) 2.5 mg PO QAM [facility] Last Admin: 10/30/16 08:27 Dose: 2.5 mg Aspirin (Aspirin Ec Low Dose*) 81 mg PO DAILY [facility] Last Admin: 10/30/16 08:27 Dose: 81 mg Atorvastatin Calcium (Lipitor*) 10 mg PO DAILY [facility] Last Admin: 10/30/16 08:27 Dose: 10 mg Docusate Sodium (Colace Cap*) 100 mg PO BID [facility] Last Admin: 10/30/16 08:27 Dose: 100 mg Enoxaparin Sodium (Lovenox(*)) 40 mg SUBCUT Q24H [facility] Last Admin: 10/29/16 16:39 Dose: 40 mg Haloperidol Lactate (Haldol Inj Iv/Im*) 2 mg IV SLOW PU Q6H PRN PRN Reason: AGITATION Last Admin: 10/29/16 06:12 Dose: 2 mg Lorazepam (Ativan Tab(*)) 1 mg PO Q6H PRN PRN Reason: muscle spasm Last Admin: 10/29/16 21:16 Dose: 1 mg Morphine Sulfate (Morphine Inj (Syringe)*) 4 mg IV Q2H PRN PRN Reason: PAIN Nicotine (Nicotine Patch 14 Mg/24 Hr*) 1 patch TRANSDERM Q24HR [facility] Last Admin: 10/30/16 08:27 Dose: 1 patch Ondansetron HCl (Zofran Inj*) 4 mg IV Q4H PRN PRN Reason: NAUSEA/VOMITING Oxycodone/Acetaminophen (Percocet 5/325 Tab*) 1 tab PO Q4H PRN PRN Reason: Pain Pharmacy Profile Note (Nicotine Patch Removal Note*) 1 note PATCH OFF 2100 [facility] Last Admin: 10/30/16 00:57 Dose: 1 note Quetiapine Fumarate (Seroquel Tab*) 25 mg PO 0900,1400 [facility] Last Admin: 10/30/16 08:27 Dose: 25 mg Vital Signs 10/29/16 10/29/1617 20:00 21:16 23:16 Temperature Pulse Rate Respiratory 18 16 18 Rate Blood Pressure (mmHg) O2 Sat by Pulse Oximetry 10/30/16 10/30/16 07:45 08:00 Temperature 98.0 F Pulse Rate 97 Respiratory 17 18 Rate Blood Pressure 145/78 (mmHg) O2 Sat by Pulse 96 Oximetry Oxygen Devices in Use Now: None Appearance: Alert, in good spirits. Looks comfortable. Eyes: No Scleral Icterus Extremities: No Edema, No Clubbing, Cyanosis, - Skin: No Rash or Ulcers, No Nodules or Sclerosis, - Neurological: NL Sensation, - - Disoriented. Cooperative but short attention span. Can't say her lst name, age. No tremor. Assess/Plan/Problems-Billing Assessment: 71 yo F h/o frontotemporal dementia, HTN/HLD, h/o TIA p/w femoral neck fracture after mechanical fall, now repaired successfully. - Patient Problems (1) Femoral neck fracture Current Visit: Yes Status: Acute Priority: High Code(s): S72.009A - FRACTURE OF UNSP PART OF NECK OF UNSP FEMUR, INIT SNOMED Code(s): 4439634 Comment: ORIF 10/25/16. Continue PT/OT (2) Frontotemporal dementia Current Visit: Yes Status: Acute Code(s): G31.09 - OTHER FRONTOTEMPORAL DEMENTIA; F02.80 - DEMENTIA IN OTH DISEASES CLASSD ELSWHR W/O BEHAVRL DISTURB SNOMED Code(s): 141236677 Comment: Continue seroquel, family feels that her present dose is optimal for now. (3) Hypertension Current Visit: Yes Status: Acute Code(s): I10 - ESSENTIAL (PRIMARY) HYPERTENSION SNOMED Code(s): 68575680 Comment: Continue amlodipine. (4) Hyperlipidemia Current Visit: No Status: Acute Code(s): E78.5 - HYPERLIPIDEMIA, UNSPECIFIED SNOMED Code(s): 75284025 Comment: Continue atorvastatin 10 mg daily. Status and Disposition: Discharge to [facility] now.
--- NOTE | 2016-10-30 12:21 | PN ---
Progress Note - Progress Note Note: Time spent on discharge 45 minutes.
--- NOTE | 2016-10-30 17:31 | TRS ---
DATE OF ADMISSION: 10/25/16 DATE OF DISCHARGE: 10/30/16 This 72-year-old woman presented with right hip pain after a fall. She was found to have a right hip fracture. She underwent ORIF of the right hip fracture on 10/25/16. She did well and was actually walking with a walker with some assistance by the day of discharge. She had little pain. Her behavior disturbances were controlled with p.r.n. Haldol of which she needed very few doses. I spoke with her family about her present dose of quetiapine. This is probably optimal dose for now, although as I told them this should be periodically reevaluated as she may need more or less in the future. FINAL DIAGNOSES: 1. Hip fracture status post ORIF 10/25/16. 2. Hypertension. 3. Frontotemporal dementia. 4. Hyperlipidemia. DISCHARGE MEDICATIONS: 1. Aspirin 81 mg daily as DVT prophylaxis. 2. Nicotine patch 7 mg per day, stop after 1 week. 3. Atorvastatin 10 mg daily. 4. Amlodipine 2.5 mg daily. 5. Acetaminophen 650 mg every 4 hours p.r.n. 6. Lorazepam 1 mg every 6 hours p.r.n. 7. Quetiapine 25 mg 0900 and 1400 daily. CC: Dr. Marin* [id number]/[facility] #: [id number] LEONARDO
== END 2016-10-30 13:40 | disposition home or self-care (01) | DRG 561 ==
LOC: SSU 15:55 → MED 23:32
PROVIDERS: ADMIT Internal Medicine Cardiovascular Disease; ATTEND Internal Medicine
DX: S72.001D Fracture of unspecified part of neck of right femur, subsequent encounter for closed fracture with routine healing (principal); G31.09 Other frontotemporal neurocognitive disorder; I10 Essential (primary) hypertension; F02.80 Dementia in other diseases classified elsewhere, unspecified severity, without behavioral disturbance, psychotic disturbance, mood disturbance, and anxiety; W18.30XD Fall on same level, unspecified, subsequent encounter; E78.5 Hyperlipidemia, unspecified; Z79.82 Long term (current) use of aspirin; Z79.1 Long term (current) use of non-steroidal anti-inflammatories (NSAID); Z79.899 Other long term (current) drug therapy; Z75.1 Person awaiting admission to adequate facility elsewhere
CPT/HCPCS: A9270-GY; J1630; J1650

== ENCOUNTER 2018-05-01 10:51 | Emergency (ER) | payer MEDICARE, OTHER ==
--- NOTE | 2018-05-01 11:13 | ED ---
Syncope/Near Syncope - HPI Summary HPI Summary: This is scribe Lavern Be documenting for attending Daniel Castellanos MD. This patient is a 72 year old F presenting to [facility] accompanied by her daughter- in-law, who states that Dr. Evans office recommended she be brought to the ED , after she mentioned two bouts of buckling of the legs and one episode of non -responsiveness lasting a few seconds. Inofsrqb-th-fpl states she originally called requested a prescription for a medical bed, and the patient is now at her baseline dementia. She additionally reports patient had difficulty feeding herself this morning, which is changed from baseline. Ermsincy-ep-bgo denies difficulty with walking prior to today. HPI is limited. Patient is Level 5 Caveat. History provided by [id number]. I, Dr. Castellanos, personally performed the services described in this documentation as scribed in my presence and it is both accurate and complete. - History Of Current Complaint Chief Complaint: EDNeurologicalDeficit - Allergies/Home Medications Allergies/Adverse Reactions: Allergies Allergy/AdvReac Type Severity Reaction Status Date / Time No Known Allergies Allergy Verified 05/01/18 11:14 Home Medications: Home Medications QUEtiapine TAB* [Seroquel 25 MG TAB*] 100 mg PO SEE INSTRUCTIONS 05/01/18 [ History Confirmed 05/01/18] hydrOXYzine HCL TAB* [Atarax 10 MG TAB*] 10 mg PO DAILY 05/01/18 [History Confirmed 05/01/18] PMH/Surg Hx/FS Hx/Imm Hx Cardiovascular History: Reports: Hx Hypercholesterolemia, Hx Hypertension History: Reports: Other Problems/Disorders - prolapsted uterus/bladder Musculoskeletal History: Reports: Hx Osteoporosis Sensory History: Reports: Hx Contacts or Glasses Opthamlomology History: Reports: Hx Contacts or Glasses Neurological History: Reports: Hx Dementia - Surgical History Surgery Procedure, Year, and Place: R hip repair- 10/2016 Infectious Disease History: Denies: Traveled Outside the [place] in Last 30 Days - Family History Known Family History: Positive: Hypertension - Social History Alcohol Use: None Hx Substance Use: No Substance Use Type: Reports: None Smoking Status (MU): Never Smoked Tobacco Review of Systems All Other Systems Reviewed And Are Negative: No - Comments Additional Review of Systems Comments: ROS is limited. Patient is Level 5 Caveat. Physical Exam - Summary Physical Exam Summary: VITAL SIGNS: Reviewed. GENERAL: Patient is a elderly fragile cachectic female who is lying comfortable in the stretcher. Patient is demented; unable to obtain history. Patient is not in any acute respiratory distress. HEAD AND FACE: No signs of trauma. No ecchymosis, hematomas or skull depressions. No sinus tenderness. EYES: PERRLA, EOMI x 2, No injected conjunctiva, no nystagmus. EARS: Hearing grossly intact. Ear canals and tympanic membranes are within normal limits. MOUTH: Oropharynx within normal limits. Dry oral mucosa. NECK: Supple, trachea is midline, no adenopathy, no JVD, no carotid bruit, no c- spine tenderness, neck with full ROM. CHEST: Symmetric, no tenderness at palpation LUNGS: Clear to auscultation bilaterally. No wheezing or crackles. CVS: Regular rate and rhythm, S1 and S2 present, no murmurs or gallops appreciated. ABDOMEN: Soft, non-tender. No signs of distention. No rebound no guarding, and no masses palpated. Bowel sounds are normal. EXTREMITIES: FROM in all major joints, no edema, no cyanosis or clubbing. NEURO: Alert and oriented x 3. No acute neurological deficits. Speech is normal and follows commands. SKIN: Dry and warm Triage Information Reviewed: Yes Vital Signs On Initial Exam: Initial Vitals Temp Pulse Resp BP Pulse Ox 98.4 F 102 20 141/112 97 05/01/18 10:53 05/01/18 10:53 05/01/18 10:53 05/01/18 10:53 05/01/18 10:53 Vital Signs Reviewed: Yes - [place] Coma Scale Best Eye Response: 4 - Spontaneous Best Motor Response: 6 - Obeys Commands Best Verbal Response: 5 - Oriented Coma Scale Total: 15 Diagnostics - Vital Signs Vital Signs Temp Pulse Resp BP Pulse Ox 05/01/18 10:53 98.4 F 102 20 141/112 97 - Laboratory Result Diagrams: 05/01/18 11:55 05/01/18 11:55 Lab Statement: Any lab studies that have been ordered have been reviewed, and results considered in the medical decision making process. - Radiology CXR Radiology Interpretation Completed By: Radiologist - COPD. NO ACTIVE CARDIOPULMONARY DISEASE. ED Physician has reviewed this report. - CT Brain CT CT Interpretation Completed By: Radiologist - NO ACUTE INTRACRANIAL PATHOLOGY. DIFFUSE INVOLUTIONAL CHANGE WITH CHRONIC SMALL VESSEL ISCHEMIC CHANGES. ED Physician has reviewed this report. - EKG 1141 Cardiac Rate: NL - 90 BPM EKG Interpretation: sinus arrhytmia EKG Comparison: No Significant Change - compated to Course/Dx Course Of Treatment: This patient is a 72-year-old female who presents to the emergency department with chief complaint of having weakness and she apparently fell because both of her knees were weak. The patient has past medical history significant for dementia therefore unable to obtain history from the patient. Blood test results without any significant abnormality except for BUN 29 creatinine 1.3. Urinalysis is negative for UTI. Head CT impression no acute intracranial pathology. Diffuse involutional changes with chronic small vessel ischemic changes. Chest x-ray impression: COPD. No active cardiopulmonary disease. In the ED course the patient was given IV fluids since the patient was slightly dehydrated. I ambulated the patient and she has a good steady walk . At this time I discussed my physical exam, findings and test results with the patients family members and that all testing so far has been negative therefore the patient will be discharged home with follow-up with PCP. They understand and agree. All questions and concerns were answered. - Diagnoses Provider Diagnoses: Weakness, Dehydration, Renal insufficiency Discharge - Sign-Out/Discharge Documenting (check all that apply): Patient Departure - discharge - Discharge Plan Condition: Stable Disposition: HOME Patient Education Materials: Dehydration (ED), Weakness (ED) Referrals: Johnathan Hudson MD [Primary Care Provider] - 2 Days Additional Instructions: RETURN TO THE EMERGENCY DEPARTMENT FOR CHANGING OR WORSENING SYMPTOMS.
[2018-05-01 12:13] LABS: ABS Basophils 0.1 10^3/ul (0-0.2); ABS Eosinophils 0 10^3/ul (0-0.6); ABS Lymphocytes 1.2 10^3/ul (1.0-4.8); ABS Monocytes 0.3 10^3/ul (0-0.8); ABS Neutrophils 2.7 10^3/ul (1.5-7.7); ABS Nucleated RBC 0 10^3/ul; Eosinophil % 0.9 % (0-6); Hematocrit 44 % (35-47); Hemoglobin 14.6 g/dl (12.0-16.0); Lymphocyte % 27.5 % (25-47); Mean Corpuscular HGB Conc 34 g/dl (31-36); Mean Corpuscular Hemoglobin 32 pg (27-31); Mean Corpuscular Volume 96 fL (80-97); Mean Platelet Volume 7.9 um3 (7.4-10.4); Nucleated Red Blood Cells % 0.1; Platelet Count 207 10^3/ul (150-450); Red Blood Count 4.52 10^6/ul (4.00-5.40); Red Cell Distribution Width 14 % (10.5-15); White Blood Count 4.3 10^3/ul (3.5-10.8)
--- NOTE | 2018-05-01 12:19 | RAD ---
HISTORY: AMS COMPARISONS: None TECHNIQUE: Multiple contiguous axial CT scans were obtained of the head without intravenous contrast. FINDINGS: The study is limited by patient motion artifact. HEMORRHAGE/INFARCT: There is no hemorrhage or acute infarct. MASSES/SHIFT: There is no mass or shift. EXTRA-AXIAL SPACES: There are no extra-axial fluid collections. SULCI AND VENTRICLES: There is diffuse and proportional enlargement of the sulci and ventricles. CEREBRUM: There is hypoattenuation of the periventricular and subcortical white matter. BRAINSTEM: There are no focal parenchymal abnormalities. CEREBELLUM: There are no focal parenchymal abnormalities. VESSELS: There is calcification of the cavernous segments of the internal carotid arteries bilaterally and of the distal vertebral arteries bilaterally. PARANASAL SINUSES: The paranasal sinuses are clear. ORBITS: The orbits are unremarkable. BONES AND SOFT TISSUE: No bone or soft tissue abnormalities are noted. OTHER: None IMPRESSION: NO ACUTE INTRACRANIAL PATHOLOGY. DIFFUSE INVOLUTIONAL CHANGE WITH CHRONIC SMALL VESSEL ISCHEMIC CHANGES.
[2018-05-01 12:28] LABS: EGFR Non-African American 40.2 (>60)
--- NOTE | 2018-05-01 12:30 | RAD ---
HISTORY: AMS COMPARISONS: October 23, 2016 VIEWS: 1: frontal portable view of the chest at 12:16 PM FINDINGS: LINES AND TUBES: None. CARDIOMEDIASTINAL SILHOUETTE: The cardiomediastinal silhouette is normal for portable technique. PLEURA: The costophrenic angles are sharp. No pleural abnormalities are noted. LUNG PARENCHYMA: There is hyperinflation. ABDOMEN: The upper abdomen is clear. There is no subphrenic gas. BONES AND SOFT TISSUES: No bone or soft tissue abnormalities are noted. IMPRESSION: COPD. NO ACTIVE CARDIOPULMONARY DISEASE.
[2018-05-01 13:22] LABS: Urine Appearance Clear; Urine Blood Negative (Negative); Urine Color Yellow; Urine Ketones Negative (Negative); Urine Protein Negative (Negative); Urine Specific Gravity 1.016 (1.010-1.030); Urine Urobilinogen Positive (Negative)
[2018-05-01] MEDS ORDERED: QUEtiapine TAB* 100 MG ONE (13:37)
[2018-05-01] MEDS ORDERED: QUEtiapine TAB* 100 MG PO ONE (13:40)
[2018-05-01] MEDS ORDERED: NS 0.9% 500 ML* 500 ML IV ONE (13:52)
[2018-05-01 14:32] VITALS: BP 138/80
== END 2018-05-01 14:30 | disposition home or self-care (01) ==
LOC: ED 10:51
DX: R53.1 Weakness (principal); E86.0 Dehydration; N28.9 Disorder of kidney and ureter, unspecified; I49.9 Cardiac arrhythmia, unspecified; F03.90 Unspecified dementia, unspecified severity, without behavioral disturbance, psychotic disturbance, mood disturbance, and anxiety; Z91.81 History of falling
CPT/HCPCS: 36415; 70450; 71045; 80053; 80329; 81003; 82140; 82550; 83605; 83735; 84443; 84484; 85025; 93005; 99283; A9270-GY; G0480

== ENCOUNTER 2018-09-10 10:01 | Inpatient (IN) | payer MEDICARE, OTHER ==
[2018-09-10] MEDS ORDERED: NS 0.9% 1000 ML* 1,000 ML IV ONE (10:02)
--- NOTE | 2018-09-10 10:31 | ED ---
Neurological HPI - HPI Summary HPI Summary: CY LUCAS CALLED AT 0942, ETA TO [facility] ED IS 20 MINUTES. A 72 y/o female brought in by ambulance presents to the ED s/p witness seizure and unresponsive activity. As per triage, "BIB EMS from home due to witnessed seizure around 0900 today and unresponsiveness wince. EMS pt with left sided facial droop after seizure. Cy Wharton initiated and pt straight to CT". As per EMS, the patient lives at home and has a history of dementia. No other known medical history and no known allergies. Patient had a previous episode of seizure-like activity, however, the family could not tell EMS the time frame as they are unsure. Around 0920, the patient was completely normal routine daily activities when she started experiencing a seizure and was unresponsive. This incident was witnessed the patient's son and fobmbkuq-kd-wcu and who are the ones who called EMS. As per EMS, the patient was unresponsive to any stimuli, left side facial droop, left side drooling from mouth, and body listing. Additionally, the patient had no random movements, shallow breathing, and was completely unresponsive. The EMS personnel stated that "this is the most I have seen her move" in the [facility] ED. En route, blood-glucose was 102, pressure (which is coming up) was 122/80, pulse have been in the 80s, respiration in the 214s. As per EMS, lungs sound terrible. Patient has been here before, and her symptoms looked like a seizure, however, he couldn't "get any neurochecks" on her. Son and bbfsxhxc-ns-mcb was at the house. LEVEL 5 CAVEAT. 1024 - In the ED room, the patient has a pulse of 85 BPM, O2 saturation of 100% , and blood pressure of 132/97. As per uytwqfwi-fl-xfl (Tomeka), the patient was having a seizure. She stated that it looked exactly like a seizure as the patient stiffened her body and arms. She noted that the patient was in a wheelchair when the incident happened as she just sat her down. Prior, the patient took her water and daily morning medications 10 minutes prior to incident. She stated that the patient didn't eat (no breakfast at that point) but had her pills and a full cup of water. She further noted that the patient went forward in the wheelchair, started seizing and jerking. She was very stiff and so the rabwajqm-hv-jrm held her gently until it was over. She and the son believes that it was 2 minutes. The daughter- in-law stated that she was an EMT in [place] and didn't panic and knew what to do. She stated that prior to all of this, the patient has been constipated, severely dehydrated, with the severe dementia. At some point she couldn't push her stool anymore, so she was given stool softener which alleviated the constipation but now she has been having diarrhea for the past 24 hours. Patient has stage 7 dementia. Patient takes two medications. She stated that the patient takes 2 in the morning at 0800, 2 at 1230, 1 at 1500, and t3 at 2000 with the other "white" pill. Tomeka's phone number is . Home Medications Medication Instructions Recorded Confirmed Type QUEtiapine TAB* [Seroquel 25 MG 100 mg PO SEE INSTRUCTIONS 05/01/18 05/01/18 History TAB*] hydrOXYzine HCL TAB* [Atarax 10 MG 10 mg PO DAILY 05/01/18 05/01/18 History TAB*] - History of Current Complaint Chief Complaint: EDAltMentalStatus Stated Complaint: CODE WHARTON Time Seen by Provider: 09/10/18 10:01 Hx Obtained From: Family/Fuel System Maintenance Supervisor - [id number] (TOMEKA), EMS Hx From Patient Unobtainable Due To: Dementia - STAGE 7 DEMENTIA Hx Last Menstrual Period: 71 y/o Onset/Duration: Sudden Onset, Started hours ago Timing: Sudden Onset - LASTING 2 MINUTES Current Severity: None Number of Seizures: 1 Neurological Deficit Location: Facial - LEFT SIDE DROOP AND DROOLING, PER EMS Pain Intensity: 0 Pain Scale Used: 0-10 Numeric Syncope Context: Witnessed - PATIENT WAS UNRESPONSIVE AND HAD A SEIZURE LASTING 2 MINUTES. PER EMS, PATIENT WAS UNRESPONSIVE EN ROUTE. Aggravating: Nothing Alleviating: Nothing Associated Signs and Symptoms: Positive: Seizure, AMS - DEMENTIA - Allergy/Home Medications Allergies/Adverse Reactions: Allergies Allergy/AdvReac Type Severity Reaction Status Date / Time diazepam [From Valium] Allergy Agitation Verified 09/10/18 13:06 Home Medications: Home Medications Quetiapine Fumarate [Quetiapine 100 mg] 2 tab PO Q6H 09/10/18 [History Confirmed 09/10/18] PMH/Surg Hx/FS Hx/Imm Hx Cardiovascular History: Reports: Hx Hypercholesterolemia, Hx Hypertension History: Reports: Other Problems/Disorders - prolapsted uterus/bladder Musculoskeletal History: Reports: Hx Osteoporosis Sensory History: Reports: Hx Contacts or Glasses Opthamlomology History: Reports: Hx Contacts or Glasses Neurological History: Reports: Hx Dementia - Surgical History Surgery Procedure, Year, and Place: R hip repair- 10/2016 - Family History Known Family History: Positive: Hypertension - Social History Alcohol Use: None Hx Substance Use: No Substance Use Type: Reports: None Smoking Status (MU): Never Smoked Tobacco Review of Systems Negative: Fever Neurological: Other - POSITIVE: SEIZURE All Other Systems Reviewed And Are Negative: No Physical Exam - Summary Physical Exam Summary: Appearance: patient is cachexetic and laying in bed comfortably. Skin: Warm, dry, no obvious rash. Eyes: sclera anicteric, no conjunctival pallor. ENT: mucous membranes moist, pharynx appears normal. Neck: Supple, nontender. Respiratory: Clear to auscultation, no signs of respiratory distress. Cardiovascular: Normal S1, S2. No murmurs. Normal distal pulses in tibial and radial bilaterally. Abdomen: Soft, nontender, normal active bowel sounds present. Musculoskeletal: Normal, Strength/ROM Intact, Motor function in all 4 extremities is normal and symmetric. There is no rigidity or tremor noted. Neurological: Patient is unresponsive to verbal and noxious stimulus. Patient occasionally opens her eyes and has a locked gaze. Patient does not follow commands. Vital signs are unremarkable. Mental status is above speech and is limited to occasional moans.Cranial nerves are grossly intact. Peripheral vision is intact to confrontation. There are no gross sensory abnormalities to light touch. Psychiatric: Unable to assess. Triage Information Reviewed: Yes Vital Signs Reviewed: Yes Diagnostics - Laboratory Result Diagrams: 09/11/18 06:34 09/11/18 06:34 Lab Statement: Any lab studies that have been ordered have been reviewed, and results considered in the medical decision making process. - Radiology CXR Radiology Interpretation Completed By: Radiologist Summary of Radiographic Findings: NO ACTIVE CARDIOPULMONARY DISEASE IS NOTED. ED PHYSICIAN REVIEWED THIS RADIOLOGY REPORT. - CT BRAIN CT CT Interpretation Completed By: Radiologist Summary of CT Findings: Chronic ischemic White matter change. No intracranial mass or hemorrhage is noted. No changes noted since previous exam of May 01, 2018. ED PHYSICIAN REVIEWED THIS RADIOLOGY REPORT. - EKG 1050 Cardiac Rate: NL - 78 BPM EKG Rhythm: Sinus Rhythm - 78 BPM Summary of EKG Findings: NSR at 78 BPM, P waves, QRS complex, and T waves are within normal limits, T waves and intervals are normal, no ischemic changes. This is a normal EKG. Course/Dx - Course Course Of Treatment: A 72 y/o female brought in by ambulance presents to the ED s/p witness seizure and unresponsive activity. As per seelzszc-wx-fgu (Tomeak), the patient was having a seizure. She stated that it looked exactly like a seizure as the patient stiffened her body and arms. She noted that the patient was in a wheelchair when the incident happened as she just sat her down. Prior, the patient took her water and daily morning medications 10 minutes prior to incident. She stated that the patient didn't eat (no breakfast at that point) but had her pills and a full cup of water. She further noted that the patient went forward in the wheelchair, started seizing and jerking. She was very stiff and so the plhgqqlz-ic-fut held her gently until it was over. She and the son believes that it was 2 minutes. 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 She stated that prior to all of this, the patient has been constipated, severely dehydrated, with the severe dementia. At some point she couldn't push her stool anymore, so she was given stool softener which alleviated the constipation but now she has been having diarrhea for the past 24 hours. Patient has stage 7 dementia. CODE LUCAS called at 0942. Level 5 caveat. Physical examination findings significant for patient is cachexetic. Patient is unresponsive to verbal and noxious stimulus. Patient occasionally opens her eyes and has a locked gaze. Patient does not follow commands. Vital signs are unremarkable. Mental status is above speech and is limited to occasional moans.Cranial nerves are grossly intact. Peripheral vision is intact to confrontation. There are no gross sensory abnormalities to light touch. Unable to assess patients psych. A Brain CT revealed chronic ischemic White matter change. No intracranial mass or hemorrhage is noted. No changes noted since previous exam of May 01, 2018. GCS: 15. An EKG revealed NSR at 78 BPM, P waves, QRS complex, and T waves are within normal limits, T waves and intervals are normal, no ischemic changes. This is a normal EKG. A CXR revealed no active cardiopulmonary disease is noted. Hematology, coagulation, and Chemistry screens were done. No significant laboratory abnormalities were found. Troponin was 0.00. In the ED course, the patient received IV fluids. Patient care was discussed with hospitalist, Dr. Liang Worrell, who accepts patient for admission. Patient will be admitted with a diagnosis of seizure. Patient is agreeable with this plan. - Diagnoses Provider Diagnoses: Seizure - Physician Notifications Discussed Care Of Patient With: Liang Worrell Time Discussed With Above Provider: 11:31 Instructed by Provider To: Other - ACCEPTS PATIENT FOR ADMISSION. Discharge - Sign-Out/Discharge Documenting (check all that apply): Patient Departure - ADMIT, Sign-Out Patient - WORRELL Signing out patient TO: Liang Worrell Receiving patient FROM: Lennox Thomas - Discharge Plan Condition: Stable Disposition: ADMITTED TO [facility] - Billing Disposition and Condition Condition: STABLE Disposition: Admitted to [facility] - Attestation Statements Document Initiated by Rocio: Yes Documenting Scribe: Ge Contreras Provider For Whom Rocio is Documenting (Include Credential): Lennox Thomas MD Scribe Attestation: Ge Lr, tonibed for Lennox Thomas MD on 09/13/18 at 0200. Scribe Documentation Reviewed: Yes Provider Attestation: The documentation as recorded by the Ge gibbs accurately reflects the service I personally performed and the decisions made by me, Lennox Thomas MD Status of Scribe Document: Viewed
[2018-09-10 10:50] LABS: ABS Basophils 0 10^3/ul (0-0.2); ABS Eosinophils 0 10^3/ul (0-0.6); ABS Lymphocytes 0.4 10^3/ul (1.0-4.8); ABS Monocytes 0.3 10^3/ul (0-0.8); ABS Neutrophils 3.3 10^3/ul (1.5-7.7); ABS Nucleated RBC 0 10^3/ul; Eosinophil % 0.3 %; Hematocrit 40 % (35-47); Hemoglobin 13.5 g/dl (12.0-16.0); Lymphocyte % 10.1 %; Mean Corpuscular HGB Conc 34 g/dl (31-36); Mean Corpuscular Hemoglobin 32 pg (27-31); Mean Corpuscular Volume 95 fL (80-97); Mean Platelet Volume 7.7 fL (7.4-10.4); Nucleated Red Blood Cells % 0; Platelet Count 204 10^3/ul (150-450); Red Blood Count 4.18 10^6/ul (4.00-5.40); Red Cell Distribution Width 14 % (10.5-15); White Blood Count 4.1 10^3/ul (3.5-10.8)
[2018-09-10 10:57] LABS: Activated Partial Thrombo Time 28.6 seconds (26.0-36.3); INR 0.83 (0.77-1.02)
[2018-09-10 11:06] LABS: Albumin 3.2 g/dL (3.2-5.2); Albumin/Globulin Ratio 1.3 (1-3); BUN/Creatinine Ratio 26.1 (8-20); Calcium 9.1 mg/dL (8.6-10.3); EGFR Non-African American 44.5 (>60); Globulin 2.4 g/dL (2-4); HDL Cholesterol 65.8 mg/dL; Potassium 3.7 mmol/L (3.5-5.0); Total Bilirubin 0.5 mg/dL (0.2-1.0); Total Protein 5.6 g/dL (6.4-8.9)
--- NOTE | 2018-09-10 12:05 | CONSULT ---
Consult Consult: NEUROLOGY CONSULTATION Patient seen and examined 09/10/2018 10.07am CC: altered mental status HPI: This is a 72 yr old woman with history of dementia who lives at home who was noted to have seizure like activity around 9 his morning. History obtained from EMS. Patient with AMS and unable to provide a history. Family not at the bedside. The patient has possibly had a previous seizure. The patient was in her usual state of health when suddenly she was found to have "seizure like activity" unresponsiveness with a left facial droop with drooling. Vitals and BG stable. Review of Systems: unable to obtain due to patient condition Allergies No Known Allergies Allergy (Verified 05/01/18 11:14) Meds: hydrOXYzine HCL TAB* [Atarax 10 MG TAB*] 10 mg PO Q8HR PRN 05/01/18 [History Confirmed 09/10/18] Quetiapine Fumarate [Quetiapine 100 mg] 2 tab PO Q6H 09/10/18 [History Confirmed 09/10/18] Vital Signs Temp 97.0 F 09/10/18 10:05 Pulse 81 09/10/18 11:39 Resp 8 09/10/18 11:39 BP 166/91 09/10/18 11:39 Pulse Ox 99 09/10/18 11:39 Intake & Output 09/09/18 09/10/18 09/10/18 18:59 06:59 18:59 Weight 91 lb Exam: CVS/Resp: regular rate, non rebreather Mental Status: somnolent, opens eyes to command, does not attend. CN: PERRLA, face symmetrical Motor: normal tone, no clear movement to noxious stimuli, moves spontaneously Laboratory: Laboratory Results WBC 4.1 10^3/ul (3.5-10.8) 09/10/18 10:34 RBC 4.18 10^6/ul (4.00-5.40) 09/10/18 10:34 Hgb 13.5 g/dl (12.0-16.0) 09/10/18 10:34 Hct 40 % (35-47) 09/10/18 10:34 MCV 95 fL (80-97) 09/10/18 10:34 MCH 32 pg (27-31) H 09/10/18 10:34 MCHC 34 g/dl (31-36) 09/10/18 10:34 RDW 14 % (10.5-15) 09/10/18 10:34 Plt Count 204 10^3/ul (150-450) 09/10/18 10:34 MPV 7.7 fL (7.4-10.4) 09/10/18 10:34 Neut % (Auto) 81.4 % 09/10/18 10:34 Lymph % (Auto) 10.1 % 09/10/18 10:34 [place] % (Auto) 7.8 % 09/10/18 10:34 Eos % (Auto) 0.3 % 09/10/18 10:34 Baso % (Auto) 0.4 % 09/10/18 10:34 Absolute Neuts (auto) 3.3 10^3/ul (1.5-7.7) 09/10/18 10:34 Absolute Lymphs (auto) 0.4 10^3/ul (1.0-4.8) L 09/10/18 10:34 Absolute Monos (auto) 0.3 10^3/ul (0-0.8) 09/10/18 10:34 Absolute Eos (auto) 0 10^3/ul (0-0.6) 09/10/18 10:34 Absolute Basos (auto) 0 10^3/ul (0-0.2) 09/10/18 10:34 Absolute Nucleated RBC 0 10^3/ul 09/10/18 10:34 Nucleated RBC % 0 09/10/18 10:34 INR (Anticoag Therapy) 0.83 (0.77-1.02) 09/10/18 10:34 APTT 28.6 seconds (26.0-36.3) 09/10/18 10:34 Sodium 137 mmol/L (135-145) 09/10/18 10:34 Potassium 3.7 mmol/L (3.5-5.0) 09/10/18 10:34 Chloride 105 mmol/L (101-111) 09/10/18 10:34 Carbon Dioxide 26 mmol/L (22-32) 09/10/18 10:34 Anion Gap 6 mmol/L (2-11) 09/10/18 10:34 BUN 31 mg/dL (6-24) H 09/10/18 10:34 Creatinine 1.19 mg/dL (0.51-0.95) H 09/10/18 10:34 Est GFR ( Amer) 53.8 (>60) 09/10/18 10:34 Est GFR (Non-Af Amer) 44.5 (>60) 09/10/18 10:34 BUN/Creatinine Ratio 26.1 (8-20) H 09/10/18 10:34 Glucose 122 mg/dL (70-100) H 09/10/18 10:34 POC Glucose (mg/dL) 99 mg/dL (70-100) 09/10/18 10:25 Lactic Acid 0.9 mmol/L (0.5-2.0) 09/10/18 10:34 Calcium 9.1 mg/dL (8.6-10.3) 09/10/18 10:34 Total Bilirubin 0.50 mg/dL (0.2-1.0) 09/10/18 10:34 AST 29 U/L (13-39) 09/10/18 10:34 ALT 23 U/L (7-52) 09/10/18 10:34 Alkaline Phosphatase 89 U/L (34-104) 09/10/18 10:34 Troponin I 0.00 ng/mL (<0.04) 09/10/18 10:34 Total Protein 5.6 g/dL (6.4-8.9) L 09/10/18 10:34 Albumin 3.2 g/dL (3.2-5.2) 09/10/18 10:34 Globulin 2.4 g/dL (2-4) 09/10/18 10:34 Albumin/Globulin Ratio 1.3 (1-3) 09/10/18 10:34 Triglycerides 47 mg/dL 09/10/18 10:34 Cholesterol 154 mg/dL 09/10/18 10:34 LDL Cholesterol 79 mg/dL 09/10/18 10:34 HDL Cholesterol 65.8 mg/dL 09/10/18 10:34 Blood Type AB Positive 09/10/18 10:34 Antibody Screen Negative 09/10/18 10:34 Imaging: All Neuroimaging reviewed personally by me as well as Neuroradiology HCT: IMPRESSION: Chronic ischemic White matter change. No intracranial mass or hemorrhage is noted. No changes noted since previous exam of May 01, 2018. Assessment: 72 yr old woman with hx of dementia and possible previous seizure presenting after what appears to be a seizure by description. Recommendations: ASA 300 WA x1 Neurochecks to monitor for improvement Keppra 1000mg IV x1 and then Keppra 500 BID Obtain MRI of the brain when able to investigate for a new stroke Obtain CTA of the head and neck to evaluate intracranial vasculature Thank you for including me in the care of this patient. Case discussed with treatment team. As per protocol, I discussed available results of testing and plan of care with the patient or advocate, who agrees to the plan. Face time for evaluation, education, counseling was >50% of time spent on unit: for 35 minutes.
[2018-09-10] MEDS ORDERED: Aspirin SUPP* 300 MG PR ONE (12:06)
[2018-09-10] MEDS ORDERED: NS 0.9% 1000 ML* 1,000 ML IV SCH (12:15)
[2018-09-10] MEDS ORDERED: Iodixanol* (CONTRAST) 320 MG/ML 100 ML SDV IV ONE (12:45)
[2018-09-10] MEDS ORDERED: levETIRAcetam IV* 1,000 MG in NS 0.9% 100 ML* 100 ML IVPB SCH (13:00)
[2018-09-10] MEDS ORDERED: levETIRAcetam IV* 1,000 MG in NS 0.9% 100 ML* 100 ML IVPB ONE (13:00)
[2018-09-10] MEDS ORDERED: Aspirin SUPP* 300 MG ONE (13:17)
[2018-09-10 13:59] LABS: Urine Appearance Clear; Urine Bilirubin Negative (Negative); Urine Blood Negative (Negative); Urine Color Yellow; Urine Glucose Negative (Negative); Urine Ketones Negative (Negative); Urine Nitrite Negative (Negative); Urine Protein Negative (Negative); Urine Urobilinogen Negative (Negative)
[2018-09-10] MEDS: NS 0.9% 1000 ML* 1,000 ML IV SCH (14:38)
[2018-09-10 15:29] LABS: TSH (Thyroid Stimulating Horm) 9.33 mcIU/mL (0.34-5.60)
--- NOTE | 2018-09-10 18:05 | HP ---
CC: Dr. Hudson at [place]; Dr. Alonso * HISTORY AND PHYSICAL: DATE OF ADMISSION: 09/10/18 PROVIDER: Kenna Lira NP. PRIMARY CARE PHYSICIAN: Dr. Hudson at [place]. ATTENDING PHYSICIAN: Dr. Worrell.* (DICTATED BY KENNA LIRA NP) CONSULTING NEUROLOGIST: Dr. Alonso. CHIEF COMPLAINT: Two minutes of seizure like activity. HISTORY OF PRESENT ILLNESS: Ms. Garner is a 72-year-old female with a past medical history significant for severe dementia with behavioral disturbance, who presented to the ED today after having witnessed seizure-like activity this morning. The patient was sitting in her wheelchair when her wmovgasl-ux-ews noticed she was jerking her leg. She then leaned forward and started to fall off from wheelchair, but her rmzukybb-sf-srz was able to catch her and the patient started having repetitive jerking motions. She stiffened her body and her arms and legs. The patient's ylbbdppw-ol-nsk, who is a former EMT, held her gently until the episode was over. The episode lasted about 2 minutes. After the incident, the patient's family called EMS; and when they arrived, the patient was unresponsive to any stimuli with a left-sided facial droop and drooling. Her blood glucose was 102 at that time and she was taking small, shallow breath. Upon arrival to the ED, the patient's vital signs were stable. She was taken off the OxyMask and was satting 99% on room air. The patient was still lethargic. She was evaluated by Dr. Alonso, the neurologist, in the ED, who recommended aspirin SC, frequent neuro checks, a Keppra load followed by Saqib b.i.d., an MRI to evaluate for any stroke and a CTA of the head and neck. The patient did have a brain CT upon arrival, which showed chronic ischemic white matter changes, but no intracranial mass or hemorrhage noted. At the time of my exam, the patient was opening her eyes to her name. She was moving her upper extremities and was beginning to try to pull at her IV, but she was still more lethargic than her baseline, which is per family, very active and often agitated. The patient was not obeying any commands; however, the patient's family said that she does not obey commands at baseline. When I moved her gown to listen to her heart, she did say "cold." I was unable to obtain review of systems due to the patient's dementia. Of note, per her daughter in law, the patient has recently been suffering from constipation for which she was given laxative and has had diarrhea for about 1 day and at baseline does not like to drink a lot of liquids and she's noticed her having difficulty swallowing liquids. Besides that the patient was in her regular state of health prior to this incident. The hospitalist team was asked to admit this patient for further workup of her seizure. PAST MEDICAL HISTORY: Severe dementia with behavioral disturbance, stage 7. Previous medical record suggests that the patient does have a history of hypertension and hyperlipidemia; however, she is no longer on medications for these. The patient also has a chest x-ray suggestive of COPD and she does have a long smoking history; however, she has no formal diagnosis of this and is not on any medications for this. PAST SURGICAL HISTORY: Bladder surgery and right hip surgery. HOME MEDICATIONS: 1. Seroquel 100 mg 2 tabs at 8 a.m., 2 tabs at 12:30, 1 tab at 3 p.m., and 3 tabs before bed. 2. Atarax 1 tab of 10 mg at bedtime. ALLERGIES: The patient has an allergy to or an adverse reaction to VALIUM and that it makes her very agitated and hyperactive. FAMILY HISTORY: The patient has no family history of heart disease. She has no family history of diabetes or cancer per her nufrvlbp-ef-fof. SOCIAL HISTORY: Obtained form the patient's htnlxkdi-yp-yyo. The patient is a former smoker. She quit 1 year ago. She was a heavy smoker for over 50 years. The patient's wbwfhysq-ml-yco says she smoked all day. The patient is also a former drinker. She used to drink 1 to 2 beverages monthly; however, she does not drink alcohol anymore. The patient is DNR and her medical decision maker is her son, Roc Ellis. REVIEW OF SYSTEMS: I was unable to perform a review of systems due to the patient's severe dementia. PHYSICAL EXAMINATION GENERAL: The patient is a thin, older woman, somnolent in the stretcher. She appears older than stated age. VITAL SIGNS: Temperature 97, heart rate 79, respiratory rate 15, O2 sat 99% on room air, and blood pressure 115/58. HEENT: Normocephalic, atraumatic. Pupils are equal, round, reactive to light and accommodation. Unable to check EOM as the patient is unable to follow commands. NECK: Supple. No lymphadenopathy noted. No JVD appreciated. RESPIRATORY: No accessary muscle use. Lungs are clear to auscultation. Normal work of breathing. CARDIAC: Regular rate and rhythm. S1 and S2 present. No murmurs, rubs, or gallops heard. ABDOMEN: Soft, nontender, nondistended. There are bowel sounds x4. EXTREMITIES: No lower extremity edema. DP and PT pulses are 2+ and symmetric. MUSCULOSKELETAL: No clubbing or cyanosis noted. The patient was unable to follow commands, so I was unable to evaluate her strength. NEUROLOGIC: The patient is lethargic; however, she does open her eyes to her name. She is moving her upper extremities spontaneously. She did move her lower extremities to noxious stimuli. I do not appreciate any facial droop. The patient also did say the word cold when I moved her gown to listen to her heart and lungs. SKIN: There are no rashes or abnormality seen. DIAGNOSTIC STUDIES/LAB DATA: Labs: White blood cell count 14.1, RBC 4.18, hemoglobin 13.5, hematocrit 40, CVA 95, MCH 32, MCHC 34, RDW 14, platelet count 204. INR 0.83, PTT 28.6. Sodium 137, potassium 3.7, chloride 105, carbon dioxide 26, anion gap 6, BUN 31, creatinine 1.19, BUN and creatinine ratio 26.1 , glucose 122, lactic acid 0.9, calcium 9.1, total bilirubin 0.50, AST 29, ALT 23, alk phos 89, troponin 0, total protein 5.6, albumin 3.2, globulin 2.4, albumin-globulin ratio 1.3, triglycerides 47, cholesterol 154, LDL cholesterol 79, HDL 65.8. Diagnostics: Brain CT: Chronic ischemic white matter changes. No intracranial mass or hemorrhage noted. Chest x-ray: Hyperinflated lung maldonado are noted. No active cardiopulmonary disease. Head and Neck CTA: Calcific plaque is noted at the origin of right internal carotid artery with approximately 50% stenosis. No intracranial aneurysm dilation or branch occlusion is noted. No evidence of carotid artery dissection or vertebral artery dissection is noted. EKG with normal sinus rhythm at 78 beats per minute. P wave, QRS complex, and T -waves are within normal limits. No evidence of ischemia or infarction. ASSESSMENT: The patient is a 72-year-old female with past medical history significant for severe dementia with behavioral disturbance, who presented to the ED after having an episode of seizure-like activity this morning and will be admitted to hospital service for further workup for the seizure. PLAN: 1. Possible Seizure. The patient has been evaluated by Dr. Alonso and will continue to be followed by Neurology. She recommended that we start Keppra 1000 mg IV today followed by 500 mg of Keppra b.i.d. The patient has had a brain CT with no evidence of hemorrhage or acute intracranial pathology. A CTA has also been done with no acute findings. The patient will have an MRI tomorrow as well. She did receive 300 mg of aspirin per rectum in the ED. The additional test will help us to see if the seizure was caused by a stroke. Per Dr. Alonso, we will also consider an EEG tomorrow depending on the patient's status. I have also ordered a formal swallow evaluation as the patient's daughter reports that she has had difficultly swallowing liquids lately. The patient will also be monitored on telemetry and have seizure precautions. Of note, the patient has had paradoxical reactions to benzos in the past and they have caused severe agitation. 2. Severe dementia with behavioral disturbance. I am holding the patient's home Seroquel and Atarax at the movement as the patient is very sedated; however , these can be restarted should the patient return to her baseline level of activity. 3. History of hypertension. Per old medical records. The patient is not on any antihypertensive currently. At the time of my exam, her systolic blood pressure was in the 120s, so we will discontinue to monitor for this. 4. ANA. The patient does have a creatinine of 1.19 and a BUN of 31. Her daughter- in-law reported to me that she has had diarrhea over the past day or so and she is not very good about drinking water at baseline, so I suspect that this is secondary to volume loss or dehydration and she did receive 1 L of fluids in the ED and I will continue IV fluids at 100 mL per hour. 5. Diet. The patient will be n.p.o. until her swallow eval. 6. DVT prophylaxis. The patient is at moderate risk and can have DVT prophylaxis with SCDs. 7. Code status. The patient is DNR. 8. Disposition. Inpatient. Anticipate discharge to home when medically stable. TIME SPENT: Time spent for this admission was 60 minutes and 35 minutes were spent with the patient and her family discussing medications, past medical history, and events leading up to the arrival today and performing physical exam. Case has been reviewed with my attending, Dr. Worrell, who agrees with the plan of care. KENNA LIRA, CORNEL [id number]/CPS #: [id number] LEONARDO
[2018-09-10] MEDS: levETIRAcetam 500 MG IVPREMIX* 500 MG/100 ML BAG IV SCH (20:50)
[2018-09-11] MEDS: NS 0.9% 1000 ML* 1,000 ML IV SCH (00:24)
[2018-09-11] MEDS ORDERED: levETIRAcetam 500 MG IVPREMIX* 500 MG/100 ML BAG IV SCH (06:00)
[2018-09-11 07:06] LABS: ABS Basophils 0 10^3/ul (0-0.2); ABS Eosinophils 0 10^3/ul (0-0.6); ABS Lymphocytes 0.7 10^3/ul (1.0-4.8); ABS Monocytes 0.4 10^3/ul (0-0.8); ABS Neutrophils 2.4 10^3/ul (1.5-7.7); ABS Nucleated RBC 0 10^3/ul; Eosinophil % 0.3 %; Hematocrit 40 % (35-47); Hemoglobin 13.4 g/dl (12.0-16.0); Lymphocyte % 20.4 %; Mean Corpuscular HGB Conc 34 g/dl (31-36); Mean Corpuscular Hemoglobin 32 pg (27-31); Mean Corpuscular Volume 96 fL (80-97); Mean Platelet Volume 8.2 fL (7.4-10.4); Nucleated Red Blood Cells % 0.1; Platelet Count 197 10^3/ul (150-450); Red Blood Count 4.15 10^6/ul (4.00-5.40); Red Cell Distribution Width 14 % (10.5-15); White Blood Count 3.5 10^3/ul (3.5-10.8)
[2018-09-11 08:35] LABS: Calcium 8.8 mg/dL (8.6-10.3); Potassium 3.5 mmol/L (3.5-5.0)
[2018-09-11 08:41] LABS: BUN/Creatinine Ratio 19.2 (8-20)
[2018-09-11] MEDS: levETIRAcetam 500 MG IVPREMIX* 500 MG/100 ML BAG IV SCH ×2 (09:00→21:10)
--- NOTE | 2018-09-11 11:55 | PN ---
Subjective Date of Service: 09/11/18 Interval History: MRI at 4pm family states better than baseline initially , asked appropriately "where have you been" and they were shocked. Later would speak more nonsensical gibberish. DIL states she never shook, just got rigid losing weight, asking for food frequently Objective Active Medications: Levetiracetam (Keppra Iv Premix*) 500 mg in 100 mls @ 400 mls/hr IV Q12HR [facility] Last Admin: 09/11/18 09:00 Dose: 400 mls/hr Sodium Chloride (Ns 0.9% 1000 Ml*) 1,000 mls @ 100 mls/hr IV PER RATE [facility] Last Admin: 09/11/18 00:24 Dose: 100 mls/hr Vital Signs - 8 hr 09/11/18 09/11/18 09/11/18 08:00 09:05 11:19 Temperature 97.3 F 97.6 F Pulse Rate 87 64 Respiratory 16 16 16 Rate Blood Pressure 138/80 150/81 (mmHg) O2 Sat by Pulse 100 100 100 Oximetry Oxygen Devices in Use Now: None Appearance: NAD, lying in bed. cachextic. Eyes: No Scleral Icterus Ears/Nose/Mouth/Throat: NL Teeth, Lips, Gums Neck: NL Appearance and Movements; NL JVP, Trachea Midline Respiratory: Symmetrical Chest Expansion and Respiratory Effort, Clear to Auscultation Cardiovascular: NL Sounds; No Murmurs; No JVD Abdominal: NL Sounds; No Tenderness; No Distention, No Hepatosplenomegaly Extremities: No Edema Skin: No Rash or Ulcers Neurological: - - skates operator strength 4+/5 on left, not really following on right but ESCOBAR. CN intact Nutrition: Taking PO's Result Diagrams: 09/11/18 06:34 09/11/18 06:34 Additional Lab and Data: Laboratory Results - last 24 hr 09/11/18 09/11/18 06:34 06:34 WBC 3.5 RBC 4.15 Hgb 13.4 Hct 40 MCV 96 MCH 32 H MCHC 34 RDW 14 Plt Count 197 MPV 8.2 Neut % (Auto) 67.8 Lymph % (Auto) 20.4 Swisher % (Auto) 10.7 Eos % (Auto) 0.3 Baso % (Auto) 0.8 Absolute Neuts (auto) 2.4 Absolute Lymphs (auto) 0.7 L Absolute Monos (auto) 0.4 Absolute Eos (auto) 0 Absolute Basos (auto) 0 Absolute Nucleated RBC 0 Nucleated RBC % 0.1 Sodium 140 Potassium 3.5 Chloride 109 Carbon Dioxide 20 L Anion Gap 11 BUN 19 Creatinine 0.99 H Est GFR ( Amer) 66.5 Est GFR (Non-Af Amer) 55.0 BUN/Creatinine Ratio 19.2 Glucose 75 Calcium 8.8 Assess/Plan/Problems-Billing Assessment: 72 yo female PMH severe dementia thought secondary to frontotemporal on frequent seroquel, FTT p/w with suspected seizure. #Seizure? - Appreciate Neuro recs - Brain MRI with small vessel ischemic changes, no acute strokes seen. disproportionate volume loss in mesial-temporal lobes bilaterally. 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 #FTT - recommend loosening any dietary restrictions, pt often asks for more food and family has been told not to give it as she may not be able to sense her satiety. However BMI 14.7!!! She used to weigh 120 two years ago. dispo: medicine inpatient
--- NOTE | 2018-09-11 13:16 | PN ---
Subjective Date of Service: 09/11/18 Length of Stay: 1 Days Neurology is following for the evaluation and management of an episode of rigidity with alteration of consciousness Interval History: The patient is now awake and alert, occasional legible sentences intermixed with nonsensical speech. Review of Systems: unreliable due to patient condition Objective Active Medications: Levetiracetam (Keppra Iv Premix*) 500 mg in 100 mls @ 400 mls/hr IV Q12HR [facility] Last Admin: 09/11/18 09:00 Dose: 400 mls/hr Sodium Chloride (Ns 0.9% 1000 Ml*) 1,000 mls @ 100 mls/hr IV PER RATE [facility] Last Admin: 09/11/18 00:24 Dose: 100 mls/hr Vital Signs 09/10/18 09/10/18 09/10/18 14:06 14:15 14:19 Temperature 98.8 F 94.3 F Pulse Rate 90 84 82 Respiratory 16 16 16 Rate Blood Pressure 129/82 143/92 143/92 (mmHg) O2 Sat by Pulse 98 100 100 Oximetry 09/10/18 09/10/18 09/10/18 15:23 15:45 16:20 Temperature 96.9 F 97.9 F 98.1 F Pulse Rate Respiratory Rate Blood Pressure (mmHg) O2 Sat by Pulse Oximetry 09/10/18 09/10/18 09/11/18 18:14 20:00 00:13 Temperature 97.9 F 98.4 F Pulse Rate 86 90 Respiratory 16 Rate Blood Pressure 123/83 144/67 (mmHg) O2 Sat by Pulse 100 Oximetry 09/11/18 09/11/18 09/11/18 00:17 03:32 08:00 Temperature 96.6 F 97.5 F Pulse Rate 85 88 Respiratory 16 16 16 Rate Blood Pressure 131/71 (mmHg) O2 Sat by Pulse 100 100 100 Oximetry 09/11/18 09/11/18 09:05 11:19 Temperature 97.3 F 97.6 F Pulse Rate 87 64 Respiratory 16 16 Rate Blood Pressure 138/80 150/81 (mmHg) O2 Sat by Pulse 100 100 Oximetry Intake and Output Last 24 Hours 09/09/18 09/10/18 09/11/18 09/12/18 06:59 06:59 06:59 06:59 Intake Total 708 Output Total 0 Balance 708 Weight 91 lb 91 lb Intake: IV Fluids 708 NS (0.9%) 708 Oral 0 Output: Urine 0 Other: Estimated Void Large Large # Bowel Movements 0 Estimated Stool Amount Medium # Voids 4 2 Oxygen Devices in Use Now: None Neurology Exam: General: General: Thin body habitus HEENT: Normocephalic/atraumatic, sclera anicteric, mucous membranes moist Neck: Supple Chest: Clear to auscultation bilaterally Cardiovascular: Regular rate Abdomen: Soft, Neurological Findings: Mental Status: Awake, cannot state where she is or month, Speech: able to name pen, fluent aphasia Cranial Nerve: PEERL, EOM intact, face symmetric bilaterally, tongue midline Motor: arms and legs antigravity Sensation: reponds to touch in arms and legs Cerebellum: no gross dysmmetria Result Diagrams: 09/11/18 06:34 09/11/18 06:34 Diagnostic Imaging: CTA head IMPRESSION: Calcific plaque is noted at the origin of the right internal carotid artery with approximately 50% stenosis. No intracranial aneurysmal dilatation or branch occlusion is noted. No evidence of carotid artery dissection or vertebral artery dissection is noted. Assessment/Plan Assessment: 72 yr old woman who presented after an event of unresponsiveness and stiffness. Stroke workup in progress. Convulsive syncope versus seizure remain on the differential. Plan: Received one dose of ASA 300 LA MRI brain scheduled for 4pm Obtain a routine EEG Continue Keppra 500 BID
[2018-09-11] MEDS: QUEtiapine TAB* 100 MG PO SCH ×2 (13:36→21:28)
--- NOTE | 2018-09-11 15:01 | EEG ---
CORRECTION VIDEO/EEG MONITORING - Monitoring Monitoring Start Date: 09/11/18 Introduction: INTRODUCTION: The EEG was monitored from 21 scalp electrodes. Nineteen electrodes consisted of the standard parasagittal, temporal and midline leads of the International 10 -20 system. In addition, special electrodes FT9 and FT10 were placed. EEG data were recorded on an Nujira system with simultaneous MPEG-4 digital video recording of patient behavior. EEG recording was in a monopolar montage with all electrodes referenced to FCz. Significant behavioral events were signaled by an event button, or putative electrical seizure events were detected by a computer program. All EEG data were reviewed in their entirety on a monitor with reconstruction of montages and adjustments of sensitivity and filtering. Simultaneous patient behavior was viewed on an adjacent monitor and correlated with the EEG. - Medications Active Medications: Levetiracetam (Keppra Iv Premix*) 500 mg in 100 mls @ 400 mls/hr IV Q12HR [facility] Last Admin: 09/11/18 09:00 Dose: 400 mls/hr Sodium Chloride (Ns 0.9% 1000 Ml*) 1,000 mls @ 100 mls/hr IV PER RATE [facility] Last Admin: 09/11/18 00:24 Dose: 100 mls/hr Quetiapine Fumarate (Seroquel Tab*) 200 mg PO Q6H [facility] Last Admin: 09/11/18 13:36 Dose: 200 mg - Description Background: TFINDINGS: The background is continuous, spontaneously variable, and reactive. During active states, the EEG was characterized by 10-16 Hz, 15-30 uV activity bilaterally in fronto-central regions. Resting wakefulness was characterized by a symmetric posterior dominant rhythm of 8-9 Hz, 30-50 uV, which was reactive to eye opening and closing. Drowsiness was associated with slow roving eye movements, slowing and fragmentation of the posterior dominant rhythm, and bilateral 4-7 Hz, 40-70 uV theta activity, sometimes with a shifting predominance. Sleep Background: Stage II sleep was not reached. Background Slowing: No generalized background slowing is present. Focal Slowing: No focal slowing is present Other Paroxysmal Non-Epileptiform Findings: None. Spontaneous Activity: No epileptiform discharges are present Clinical Events: No clinical events or seizures have been recorded during this study. - Impression Impression: EEG Summary/Classification: This is a normal EEG study. No epileptiform activity was seen and no clinical events or seizures were recorded. EEG Impression/Clinical Correlate: This normal EEG study neither refutes nor supports a diagnosis of epilepsy. Consider a repeat study if clinically indicated. .
[2018-09-11] MEDS ORDERED: LORazepam INJ* 2 MG/ML 1 ML VIAL IV PUSH ONE (16:20)
[2018-09-11] MEDS ORDERED: LORazepam INJ* 2 MG/ML 1 ML VIAL ONE (16:24)
[2018-09-12] MEDS: QUEtiapine TAB* 100 MG PO SCH ×2 (01:52→20:24)
[2018-09-12] MEDS: levETIRAcetam 500 MG IVPREMIX* 500 MG/100 ML BAG IV SCH (10:00)
--- NOTE | 2018-09-12 10:45 | PN ---
Subjective Date of Service: 09/12/18 Length of Stay: 2 Days Neurology is following for the evaluation and management of seizures Interval History: Family at the bedside who notes that the patient is back to her baseline. The patient does have significant behavioral problems at home including severe agitation and is on a high dose of seroquel. The patient was seeing a neurologist in the past but does not currently have a neurologist. Review of Systems: unreliable due to patient condition Objective Active Medications: Divalproex Sodium (Depakote Dr Tab(*)) 500 mg PO BID [facility] Sodium Chloride (Ns 0.9% 1000 Ml*) 1,000 mls @ 100 mls/hr IV PER RATE [facility] Last Admin: 09/11/18 00:24 Dose: 100 mls/hr Vital Signs 09/11/18 09/11/18 09/11/18 11:19 16:30 17:19 Temperature 97.6 F Pulse Rate 64 Respiratory 16 18 18 Rate Blood Pressure 150/81 (mmHg) O2 Sat by Pulse 100 Oximetry 09/11/18 09/11/18 09/11/18 20:00 21:02 22:06 Temperature 97.4 F 96.4 F Pulse Rate 125 60 Respiratory 9 9 Rate Blood Pressure 148/97 108/73 (mmHg) O2 Sat by Pulse 100 100 99 Oximetry 09/11/18 09/11/18 09/11/18 23:09 23:17 23:40 Temperature 96.8 F 97.4 F 96.5 F Pulse Rate 55 Respiratory 10 10 Rate Blood Pressure 112/72 (mmHg) O2 Sat by Pulse 98 Oximetry 09/11/18 09/12/18 09/12/18 23:49 00:16 01:13 Temperature 96.3 F 96.5 F Pulse Rate Respiratory 12 10 12 Rate Blood Pressure (mmHg) O2 Sat by Pulse Oximetry 09/12/18 09/12/18 09/12/18 01:55 02:44 03:42 Temperature 96.5 F 97.1 F 96.5 F Pulse Rate 53 Respiratory 12 12 Rate Blood Pressure 134/65 (mmHg) O2 Sat by Pulse 100 Oximetry 09/12/18 09/12/18 09/12/18 05:13 06:20 07:53 Temperature 96.7 F 97.1 F Pulse Rate Respiratory 13 12 14 Rate Blood Pressure (mmHg) O2 Sat by Pulse Oximetry 09/12/18 09/12/18 08:00 08:12 Temperature 97.2 F Pulse Rate 55 Respiratory 17 10 Rate Blood Pressure 146/73 (mmHg) O2 Sat by Pulse 99 100 Oximetry Intake and Output Last 24 Hours 09/10/18 09/11/18 09/12/18 09/13/18 06:59 06:59 06:59 06:59 Intake Total 708 2323.4 100 Output Total 0 Balance 708 2323.4 100 Weight 91 lb 91 lb Intake: IV Fluids 708 1503.4 NS (0.9%) 708 1503.4 Oral 0 820 100 Output: Urine 0 Other: Estimated Void Large Medium Large # Bowel Movements 0 2 Estimated Stool Amount Medium Medium # Voids 4 2 1 Oxygen Devices in Use Now: None Neurology Exam: Neurological Findings: Mental Status: Awake alert, attends and follows commands, nonsensical speech with occasional coherent sentences Cranial Nerve: PEERL, EOM intact, face symmetric bilaterally. Motor: poor bulk, normal tone, power 5/5 in the arms and legs Sensation: intact to LT Cerebellum: Finger to nose intact Result Diagrams: 09/11/18 06:34 09/11/18 06:34 Additional Lab and Data: Laboratory Results - last 24 hr 09/11/18 09/11/18 06:34 06:34 WBC 3.5 RBC 4.15 Hgb 13.4 Hct 40 MCV 96 MCH 32 H MCHC 34 RDW 14 Plt Count 197 MPV 8.2 Neut % (Auto) 67.8 Lymph % (Auto) 20.4 Tate % (Auto) 10.7 Eos % (Auto) 0.3 Baso % (Auto) 0.8 Absolute Neuts (auto) 2.4 Absolute Lymphs (auto) 0.7 L Absolute Monos (auto) 0.4 Absolute Eos (auto) 0 Absolute Basos (auto) 0 Absolute Nucleated RBC 0 Nucleated RBC % 0.1 Sodium 140 Potassium 3.5 Chloride 109 Carbon Dioxide 20 L Anion Gap 11 BUN 19 Creatinine 0.99 H Est GFR ( Amer) 66.5 Est GFR (Non-Af Amer) 55.0 BUN/Creatinine Ratio 19.2 Glucose 75 Calcium 8.8 Diagnostic Imaging: CTA head IMPRESSION: Calcific plaque is noted at the origin of the right internal carotid artery with approximately 50% stenosis. No intracranial aneurysmal dilatation or branch occlusion is noted. No evidence of carotid artery dissection or vertebral artery dissection is noted. MRI Brain: IMPRESSION: 1. LIMITED STUDY. 2. DIFFUSE INVOLUTIONAL CHANGE WITH DISPROPORTIONATE VOLUME LOSS INVOLVING THE MESIAL TEMPORAL LOBES BILATERALLY, GREATER ON THE LEFT THAN ON THE RIGHT, WHICH CAN BE ASSOCIATED WITH CERTAIN TYPES OF DEMENTIA. 3. MULTIFOCAL AND CONFLUENT ELEVATED T2/FLAIR SIGNAL IN THE PERIVENTRICULAR AND SUBCORTICAL WHITE MATTER. WHILE NONSPECIFIC, THE APPEARANCE IS SUGGESTIVE OF CHRONIC SMALL VESSEL ISCHEMIA. EEG: normal awake and sleep, no seizures or epileptiform discharges Assessment/Plan Assessment: 72 yr old woman with advanced frontotemporal dementia who presented after a seizure. Discussed behavioral issues with family and after weighing the risks and benefits family is agreeable to switch to an AED that may help with behavior as well as seizures. Plan: Discontinue Keppra Start Depakote 500 BID F/U in outpatient neurology clinic
[2018-09-12] MEDS ORDERED: Divalproex DR TAB(*) 500 MG PO SCH (11:00)
[2018-09-12] MEDS: NS 0.9% 1000 ML* 1,000 ML IV SCH ×2 (11:43→22:44)
[2018-09-12] MEDS ORDERED: QUEtiapine TAB* 100 MG PO SCH (12:00)
--- NOTE | 2018-09-12 18:23 | PN ---
Subjective Date of Service: 09/12/18 Interval History: MRI w/o acute infarct was started on depakote and restarted on seroquel, got at same time and was unable to bring spoon to mouth, worse speech. needed ativan for MRI last night. afebrile. Objective Active Medications: Divalproex Sodium (Depakote Dr Tab(*)) 500 mg PO 0800,2000 [facility] Sodium Chloride (Ns 0.9% 1000 Ml*) 1,000 mls @ 100 mls/hr IV PER RATE [facility] Last Admin: 09/12/18 11:43 Dose: 100 mls/hr Quetiapine Fumarate (Seroquel Tab*) 100 mg PO BEDTIME [facility] Vital Signs - 8 hr 09/12/18 09/12/18 09/12/18 11:11 11:13 15:38 Temperature 97.6 F 97.6 F 97.1 F Pulse Rate 79 35 75 Respiratory 10 10 12 Rate Blood Pressure 141/121 143/92 146/94 (mmHg) O2 Sat by Pulse 100 84 100 Oximetry Oxygen Devices in Use Now: None Appearance: NAD, severe cachexia Eyes: No Scleral Icterus Respiratory: Symmetrical Chest Expansion and Respiratory Effort, Clear to Auscultation Abdominal: NL Sounds; No Tenderness; No Distention, No Hepatosplenomegaly Extremities: No Edema Skin: No Rash or Ulcers Neurological: - - oriented to Luisana and Patsy. Squeezes hands bilaterally. Later more altered with groggy speech. Nutrition: Taking PO's - Nutrition: Malnutrition Diagnosis/Plan Malnutrition Assessment by Registered Dietitian: Malnutrition Assessment Clinical Characteristics Chronic,Severe Malnutrition Assessment: - Severe temporal muscle wasting and wasting of Criteria the buccal fat pad - Underweight, BMI 14.7 - 29# (24%) wt loss x past 2 years Malnutrition Assessment: Will send double portions on pt's meal trays. Interventions Will additionally send fruited azeri yogurt daily @ 10:00 (140 kcals, 12 grams protein), and Ensure pudding daily @ 3:00 (170 kcals, 4 grams protein) to optimize calorie/protein intake. Malnutrition Assessment: Goals 1. Adequate PO intake to promote weight repletion and maintain hydration status 2. High protein meals/snacks as able Result Diagrams: 09/11/18 06:34 09/11/18 06:34 Diagnostic Imaging: CTA head IMPRESSION: Calcific plaque is noted at the origin of the right internal carotid artery with approximately 50% stenosis. No intracranial aneurysmal dilatation or branch occlusion is noted. No evidence of carotid artery dissection or vertebral artery dissection is noted. MRI Brain: IMPRESSION: 1. LIMITED STUDY. 2. DIFFUSE INVOLUTIONAL CHANGE WITH DISPROPORTIONATE VOLUME LOSS INVOLVING THE MESIAL TEMPORAL LOBES BILATERALLY, GREATER ON THE LEFT THAN ON THE RIGHT, WHICH CAN BE ASSOCIATED WITH CERTAIN TYPES OF DEMENTIA. 3. MULTIFOCAL AND CONFLUENT ELEVATED T2/FLAIR SIGNAL IN THE PERIVENTRICULAR AND SUBCORTICAL WHITE MATTER. WHILE NONSPECIFIC, THE APPEARANCE IS SUGGESTIVE OF CHRONIC SMALL VESSEL ISCHEMIA. EEG: normal awake and sleep, no seizures or epileptiform discharges Assess/Plan/Problems-Billing Assessment: 72 yr old woman with FTT, advanced frontotemporal dementia who presented after suspected seizure. #Seizure appreciate neuro recs: Discontinue Keppra Start Depakote 500 BID F/U in outpatient neurology clinic #severe dementia - given AMS today after got both seroquel 200 (usually q6) + first depakote 500 , will reduce to 100mg seroquel tonight and space out. 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
[2018-09-12] MEDS: Divalproex DR TAB(*) 500 MG PO SCH (20:24)
[2018-09-13] MEDS ORDERED: Levothyroxine TAB* 25 MCG TAB PO ONE (08:05)
[2018-09-13] MEDS: Divalproex DR TAB(*) 500 MG PO SCH ×2 (08:11→20:37)
[2018-09-13 08:13] LABS: ABS Basophils 0 10^3/ul (0-0.2); ABS Eosinophils 0 10^3/ul (0-0.6); ABS Lymphocytes 0.9 10^3/ul (1.0-4.8); ABS Monocytes 0.3 10^3/ul (0-0.8); ABS Neutrophils 3.8 10^3/ul (1.5-7.7); ABS Nucleated RBC 0 10^3/ul; Eosinophil % 0.8 %; Hematocrit 44 % (35-47); Hemoglobin 14.9 g/dl (12.0-16.0); Lymphocyte % 17.2 %; Mean Corpuscular HGB Conc 34 g/dl (31-36); Mean Corpuscular Hemoglobin 33 pg (27-31); Mean Corpuscular Volume 96 fL (80-97); Mean Platelet Volume 7.2 fL (7.4-10.4); Nucleated Red Blood Cells % 0.1; Platelet Count 204 10^3/ul (150-450); Red Cell Distribution Width 14 % (10.5-15)
[2018-09-13 08:26] LABS: BUN/Creatinine Ratio 18.2 (8-20); Calcium 8.9 mg/dL (8.6-10.3); Potassium 3.6 mmol/L (3.5-5.0)
[2018-09-13 09:07] LABS: Free T4 0.63 ng/dL (0.61-1.12)
[2018-09-13 10:18] LABS: Free T3 2.5 pg/mL (2.5-3.9)
--- NOTE | 2018-09-13 11:17 | PN ---
Subjective Date of Service: 09/13/18 Interval History: No acute events overnight. Mentation/alertness seems improved on reduced Seroquel Oriented to name, sitting in chair fiddling with cards. Otherwise poor historian. Afebrile, hemodynamically stable. Objective Active Medications: Divalproex Sodium (Depakote Dr Tab(*)) 500 mg PO 0800,2000 [facility] Last Admin: 09/13/18 08:11 Dose: 500 mg Sodium Chloride (Ns 0.9% 1000 Ml*) 1,000 mls @ 100 mls/hr IV PER RATE [facility] Last Admin: 09/12/18 22:44 Dose: 100 mls/hr Levothyroxine Sodium (Synthroid Tab*) 12.5 mcg PO DAILY@0600 [facility] Quetiapine Fumarate (Seroquel Tab*) 100 mg PO BEDTIME [facility] Last Admin: 09/12/18 20:24 Dose: 100 mg Quetiapine Fumarate (Seroquel Tab*) 100 mg PO 1200 [facility] Vital Signs - 8 hr 09/13/18 09/13/18 09/13/18 03:12 07:43 08:00 Temperature 97.8 F 96.9 F Pulse Rate 73 81 Respiratory 14 16 15 Rate Blood Pressure 152/74 148/96 (mmHg) O2 Sat by Pulse 95 100 100 Oximetry Oxygen Devices in Use Now: None Appearance: NAD, sitting in chair fiddling with cards. Eyes: No Scleral Icterus Ears/Nose/Mouth/Throat: NL Teeth, Lips, Gums Respiratory: Symmetrical Chest Expansion and Respiratory Effort, - - not giving deep breaths and cachecia limit exam. No gross abnormalities but distant Cardiovascular: NL Sounds; No Murmurs; No JVD Abdominal: NL Sounds; No Tenderness; No Distention Extremities: No Edema Skin: No Rash or Ulcers Neurological: - - oriented to full name only. ESCOBAR, no tremor, 5/5 alpine guide strength Nutrition: Taking PO's - Nutrition: Malnutrition Diagnosis/Plan Malnutrition Assessment by Registered Dietitian: Malnutrition Assessment Clinical Characteristics Chronic,Severe Malnutrition Assessment: - Severe temporal muscle wasting and wasting of Criteria the buccal fat pad - Underweight, BMI 14.7 - 29# (24%) wt loss x past 2 years Malnutrition Assessment: Will send double portions on pt's meal trays. Interventions Will additionally send fruited kenyan yogurt daily @ 10:00 (140 kcals, 12 grams protein), and Ensure pudding daily @ 3:00 (170 kcals, 4 grams protein) to optimize calorie/protein intake. Malnutrition Assessment: Goals 1. Adequate PO intake to promote weight repletion and maintain hydration status 2. High protein meals/snacks as able Result Diagrams: 09/13/18 07:59 09/13/18 07:59 Additional Lab and Data: Laboratory Results - last 24 hr 09/13/18 09/13/18 07:59 07:59 WBC 5.0 RBC 4.60 Hgb 14.9 Hct 44 MCV 96 MCH 33 H MCHC 34 RDW 14 Plt Count 204 MPV 7.2 L Neut % (Auto) 74.8 Lymph % (Auto) 17.2 [place] % (Auto) 6.5 Eos % (Auto) 0.8 Baso % (Auto) 0.7 Absolute Neuts (auto) 3.8 Absolute Lymphs (auto) 0.9 L Absolute Monos (auto) 0.3 Absolute Eos (auto) 0 Absolute Basos (auto) 0 Absolute Nucleated RBC 0 Nucleated RBC % 0.1 Sodium 139 Potassium 3.6 Chloride 107 Carbon Dioxide 24 Anion Gap 8 BUN 16 Creatinine 0.88 Est GFR ( Amer) 76.2 Est GFR (Non-Af Amer) 63.0 BUN/Creatinine Ratio 18.2 Glucose 90 Calcium 8.9 Free T4 0.63 Free T3 2.50 Diagnostic Imaging: CTA head IMPRESSION: Calcific plaque is noted at the origin of the right internal carotid artery with approximately 50% stenosis. No intracranial aneurysmal dilatation or branch occlusion is noted. No evidence of carotid artery dissection or vertebral artery dissection is noted. MRI Brain: IMPRESSION: 1. LIMITED STUDY. 2. DIFFUSE INVOLUTIONAL CHANGE WITH DISPROPORTIONATE VOLUME LOSS INVOLVING THE MESIAL TEMPORAL LOBES BILATERALLY, GREATER ON THE LEFT THAN ON THE RIGHT, WHICH CAN BE ASSOCIATED WITH CERTAIN TYPES OF DEMENTIA. 3. MULTIFOCAL AND CONFLUENT ELEVATED T2/FLAIR SIGNAL IN THE PERIVENTRICULAR AND SUBCORTICAL WHITE MATTER. WHILE NONSPECIFIC, THE APPEARANCE IS SUGGESTIVE OF CHRONIC SMALL VESSEL ISCHEMIA. EEG: normal awake and sleep, no seizures or epileptiform discharges Assess/Plan/Problems-Billing Assessment: 72 yr old woman advanced frontotemporal dementia, severe protein calorie malnutrition, FTT, BMI 14.7 who presented after suspected seizure. #Seizure appreciate neuro recs: s/p Keppra continue Depakote 500 BID F/U in outpatient neurology clinic #severe dementia, with behavioral disturbance - Previously seroquel 200 q6, with slight adjustment of 100 afternoon and 300 at night) but was much groggier when got first depakote 500mg BID and same time 09/12. Trialing reduce to 100mg at noon and qhs. - PT/OT eval still pending (likely delayed by AMS?), #severe protein calorie malnutrition, FTT, BMI 14.7 - likely secondary to severe dementia but also asking for more food at home and family was told not to give too much. 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 Trial Ensure (family says she won't like but possibly try different flavors) CODE: DNR dispo: awaiting PT/OT. She is from home
[2018-09-13] MEDS: QUEtiapine TAB* 100 MG PO SCH ×2 (12:03→20:37)
--- NOTE | 2018-09-13 12:54 | PN ---
Subjective Date of Service: 09/13/18 Length of Stay: 3 Days Neurology is following for the evaluation and management of seizure Interval History: Somnolent after receiving depakote and seroquel yesterday but much calmer today. Daughter at the bedside. Review of Systems: unreliable due to patient condition Objective Active Medications: Divalproex Sodium (Depakote Dr Tab(*)) 500 mg PO 0800,1999 [facility] Last Admin: 09/13/18 08:11 Dose: 500 mg Sodium Chloride (Ns 0.9% 1000 Ml*) 1,000 mls @ 100 mls/hr IV PER RATE [facility] Last Admin: 09/12/18 22:44 Dose: 100 mls/hr Levothyroxine Sodium (Synthroid Tab*) 12.5 mcg PO DAILY@0600 [facility] Quetiapine Fumarate (Seroquel Tab*) 100 mg PO BEDTIME [facility] Last Admin: 09/12/18 20:24 Dose: 100 mg Quetiapine Fumarate (Seroquel Tab*) 100 mg PO 1200 [facility] Last Admin: 09/13/18 12:03 Dose: 100 mg Vital Signs 09/12/18 09/12/18 09/12/18 15:38 19:45 20:00 Temperature 97.1 F 97.5 F Pulse Rate 75 78 Respiratory 12 10 16 Rate Blood Pressure 146/94 130/75 (mmHg) O2 Sat by Pulse 100 100 100 Oximetry 09/12/18 09/13/18 09/13/18 23:30 03:12 07:43 Temperature 97.8 F 97.8 F 96.9 F Pulse Rate 85 73 81 Respiratory 16 14 16 Rate Blood Pressure 130/69 152/74 148/96 (mmHg) O2 Sat by Pulse 100 95 100 Oximetry 09/13/18 09/13/18 08:00 11:18 Temperature 97.5 F Pulse Rate 87 Respiratory 15 12 Rate Blood Pressure 108/61 (mmHg) O2 Sat by Pulse 100 91 Oximetry Intake and Output Last 24 Hours 09/11/18 09/12/18 09/13/18 09/14/18 06:59 06:59 06:59 06:59 Intake Total 708 2323.4 4411 Output Total 0 Balance 708 2323.4 4411 Weight 91 lb 91 lb Intake: IV Fluids 708 1503.4 3731 NS (0.9%) 708 1503.4 3731 Oral 0 820 680 Output: Urine 0 Other: Estimated Void Large Medium Small # Bowel Movements 0 2 Estimated Stool Amount Medium Medium # Voids 4 2 1 Oxygen Devices in Use Now: None Neurology Exam: Mental Status: Awake alert, attends and follows commands, nonsensical speech with occasional coherent sentences Cranial Nerve: PEERL, EOM intact, face symmetric bilaterally. Motor: poor bulk, normal tone, power 5/5 in the arms and legs Sensation: intact to LT Cerebellum: Finger to nose intact Result Diagrams: 09/13/18 07:59 09/13/18 07:59 Additional Lab and Data: Laboratory Results - last 24 hr 09/13/18 09/13/18 07:59 07:59 WBC 5.0 RBC 4.60 Hgb 14.9 Hct 44 MCV 96 MCH 33 H MCHC 34 RDW 14 Plt Count 204 MPV 7.2 L Neut % (Auto) 74.8 Lymph % (Auto) 17.2 [place] % (Auto) 6.5 Eos % (Auto) 0.8 Baso % (Auto) 0.7 Absolute Neuts (auto) 3.8 Absolute Lymphs (auto) 0.9 L Absolute Monos (auto) 0.3 Absolute Eos (auto) 0 Absolute Basos (auto) 0 Absolute Nucleated RBC 0 Nucleated RBC % 0.1 Sodium 139 Potassium 3.6 Chloride 107 Carbon Dioxide 24 Anion Gap 8 BUN 16 Creatinine 0.88 Est GFR ( Amer) 76.2 Est GFR (Non-Af Amer) 63.0 BUN/Creatinine Ratio 18.2 Glucose 90 Calcium 8.9 Free T4 0.63 Free T3 2.50 Diagnostic Imaging: CTA head IMPRESSION: Calcific plaque is noted at the origin of the right internal carotid artery with approximately 50% stenosis. No intracranial aneurysmal dilatation or branch occlusion is noted. No evidence of carotid artery dissection or vertebral artery dissection is noted. MRI Brain: IMPRESSION: 1. LIMITED STUDY. 2. DIFFUSE INVOLUTIONAL CHANGE WITH DISPROPORTIONATE VOLUME LOSS INVOLVING THE MESIAL TEMPORAL LOBES BILATERALLY, GREATER ON THE LEFT THAN ON THE RIGHT, WHICH CAN BE ASSOCIATED WITH CERTAIN TYPES OF DEMENTIA. 3. MULTIFOCAL AND CONFLUENT ELEVATED T2/FLAIR SIGNAL IN THE PERIVENTRICULAR AND SUBCORTICAL WHITE MATTER. WHILE NONSPECIFIC, THE APPEARANCE IS SUGGESTIVE OF CHRONIC SMALL VESSEL ISCHEMIA. EEG: normal awake and sleep, no seizures or epileptiform discharges Assessment/Plan Assessment: 72 yr old woman with advanced frontotemporal dementia who presented after a seizure. Switched from Keppra to Depakote to alleviate concurrent behavioral disturbances. Plan: Continue Depakote 500 BID F/U in outpatient neurology clinic Will sign off, please re consult as needed
[2018-09-14] MEDS: Levothyroxine TAB* 25 MCG TAB PO SCH (05:47)
[2018-09-14] MEDS: Divalproex DR TAB(*) 500 MG PO SCH ×2 (07:35→20:00)
--- NOTE | 2018-09-14 08:55 | PN ---
Subjective Date of Service: 09/14/18 Interval History: Pt is feeling ok today. She denies any pain. When she speaks to me today everything comes out gibberish. Objective Active Medications: Divalproex Sodium (Depakote Dr Tab(*)) 500 mg PO 0800,2000 [facility] Last Admin: 09/14/18 07:35 Dose: 500 mg Sodium Chloride (Ns 0.9% 1000 Ml*) 1,000 mls @ 100 mls/hr IV PER RATE [facility] Last Admin: 09/12/18 22:44 Dose: 100 mls/hr Levothyroxine Sodium (Synthroid Tab*) 12.5 mcg PO DAILY@0600 [facility] Last Admin: 09/14/18 05:47 Dose: 12.5 mcg Quetiapine Fumarate (Seroquel Tab*) 100 mg PO BEDTIME [facility] Last Admin: 09/13/18 20:37 Dose: 100 mg Quetiapine Fumarate (Seroquel Tab*) 100 mg PO 1200 [facility] Last Admin: 09/13/18 12:03 Dose: 100 mg Vital Signs - 8 hr 09/14/18 03:00 Temperature 97.3 F Pulse Rate 77 Respiratory 16 Rate Blood Pressure 138/80 (mmHg) O2 Sat by Pulse 100 Oximetry Oxygen Devices in Use Now: None Appearance: Elderly cachectic female sitting in a chair, eating breakfast, NAD Eyes: No Scleral Icterus Ears/Nose/Mouth/Throat: Mucous Membranes Moist Respiratory: Symmetrical Chest Expansion and Respiratory Effort, Clear to Auscultation Cardiovascular: NL Sounds; No Murmurs; No JVD, RRR, No Edema Abdominal: NL Sounds; No Tenderness; No Distention Extremities: No Clubbing, Cyanosis Skin: No Nodules or Sclerosis Neurological: - - alert, speaks gibberish - Nutrition: Malnutrition Diagnosis/Plan Malnutrition Assessment by Registered Dietitian: Malnutrition Assessment Clinical Characteristics Chronic,Severe Malnutrition Assessment: - Severe temporal muscle wasting and wasting of Criteria the buccal fat pad - Underweight, BMI 14.7 - 29# (24%) wt loss x past 2 years Malnutrition Assessment: Will send double portions on pt's meal trays. Interventions Will additionally send fruited pashto yogurt daily @ 10:00 (140 kcals, 12 grams protein), and Ensure pudding daily @ 3:00 (170 kcals, 4 grams protein) to optimize calorie/protein intake. Malnutrition Assessment: Goals 1. Adequate PO intake to promote weight repletion and maintain hydration status 2. High protein meals/snacks as able Result Diagrams: 09/13/18 07:59 09/13/18 07:59 Additional Lab and Data: Laboratory Results - last 24 hr 09/13/18 09/13/18 07:59 07:59 WBC 5.0 RBC 4.60 Hgb 14.9 Hct 44 MCV 96 MCH 33 H MCHC 34 RDW 14 Plt Count 204 MPV 7.2 L Neut % (Auto) 74.8 Lymph % (Auto) 17.2 [place] % (Auto) 6.5 Eos % (Auto) 0.8 Baso % (Auto) 0.7 Absolute Neuts (auto) 3.8 Absolute Lymphs (auto) 0.9 L Absolute Monos (auto) 0.3 Absolute Eos (auto) 0 Absolute Basos (auto) 0 Absolute Nucleated RBC 0 Nucleated RBC % 0.1 Sodium 139 Potassium 3.6 Chloride 107 Carbon Dioxide 24 Anion Gap 8 BUN 16 Creatinine 0.88 Est GFR ( Amer) 76.2 Est GFR (Non-Af Amer) 63.0 BUN/Creatinine Ratio 18.2 Glucose 90 Calcium 8.9 Free T4 0.63 Free T3 2.50 Diagnostic Imaging: CTA head IMPRESSION: Calcific plaque is noted at the origin of the right internal carotid artery with approximately 50% stenosis. No intracranial aneurysmal dilatation or branch occlusion is noted. No evidence of carotid artery dissection or vertebral artery dissection is noted. MRI Brain: IMPRESSION: 1. LIMITED STUDY. 2. DIFFUSE INVOLUTIONAL CHANGE WITH DISPROPORTIONATE VOLUME LOSS INVOLVING THE MESIAL TEMPORAL LOBES BILATERALLY, GREATER ON THE LEFT THAN ON THE RIGHT, WHICH CAN BE ASSOCIATED WITH CERTAIN TYPES OF DEMENTIA. 3. MULTIFOCAL AND CONFLUENT ELEVATED T2/FLAIR SIGNAL IN THE PERIVENTRICULAR AND SUBCORTICAL WHITE MATTER. WHILE NONSPECIFIC, THE APPEARANCE IS SUGGESTIVE OF CHRONIC SMALL VESSEL ISCHEMIA. 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 - Patient Problems (1) Seizure Current Visit: Yes Status: Acute Code(s): R56.9 - UNSPECIFIED CONVULSIONS SNOMED Code(s): 23109370 Comment: No further seizure activity. Changed from keppra to depakote. Depakote may also help with behaviors. She will need to follow up with neurology as an outpatient. (2) Subclinical hypothyroidism Current Visit: Yes Status: Acute Code(s): E03.9 - HYPOTHYROIDISM, UNSPECIFIED SNOMED Code(s): 44735897 Comment: Started on synthroid 12.5mcg daily. Recheck TSH and Free T4 in 4-6 weeks. (3) Frontotemporal dementia Current Visit: Yes Status: Acute Code(s): G31.09 - OTHER FRONTOTEMPORAL DEMENTIA; F02.80 - DEMENTIA IN OTH DISEASES CLASSD ELSWHR W/O BEHAVRL DISTURB SNOMED Code(s): 258094261 Comment: Behaviorally today so far the patient is doing ok. Will continue markedly reduced seroquel dose for now but may need to increase the dosage up to home levels if agitation becomes severe. (4) DVT prophylaxis Current Visit: Yes Status: Acute Code(s): ATU5260 - SNOMED Code(s): 587421794 Comment: SQ heparin (5) DNR (do not resuscitate) Current Visit: Yes Status: Acute
[2018-09-14] MEDS: QUEtiapine TAB* 100 MG PO SCH ×2 (10:56→21:25)
[2018-09-14] MEDS: Heparin VIAL(*) 5000 UNITS/ML VIAL (FIVE THOUSAND) SUBCUT SCH ×2 (12:44→21:25)
[2018-09-15] MEDS: Heparin VIAL(*) 5000 UNITS/ML VIAL (FIVE THOUSAND) SUBCUT SCH ×3 (06:36→22:03)
[2018-09-15] MEDS: Levothyroxine TAB* 25 MCG TAB PO SCH (06:37)
[2018-09-15] MEDS: Divalproex DR TAB(*) 500 MG PO SCH ×2 (08:25→22:03)
[2018-09-15] MEDS: QUEtiapine TAB* 100 MG PO SCH ×2 (12:51→22:03)
--- NOTE | 2018-09-15 23:58 | PN ---
Subjective Date of Service: 09/15/18 Interval History: Patient responded with "hi" when greeted for bedside exam. Patient then continued with gibberish words after. Appears fatigued today. eyes closed during most of the exam. NO grimacing when abd palpated. Family History: Unchanged from Admission Social History: Unchanged from Admission Past Medical History: Unchanged from Admission Objective Active Medications: Divalproex Sodium (Depakote Dr Tab(*)) 500 mg PO 0800,2000 [facility] Last Admin: 09/15/18 22:03 Dose: 500 mg Heparin Sodium (Porcine) (Heparin Vial(*)) 5,000 units SUBCUT Q8HR [facility] Last Admin: 09/15/18 22:03 Dose: 5,000 units Levothyroxine Sodium (Synthroid Tab*) 12.5 mcg PO DAILY@0600 [facility] Last Admin: 09/15/18 06:37 Dose: 12.5 mcg Quetiapine Fumarate (Seroquel Tab*) 100 mg PO BEDTIME [facility] Last Admin: 09/15/18 22:03 Dose: 100 mg Quetiapine Fumarate (Seroquel Tab*) 100 mg PO 1200 [facility] Last Admin: 09/15/18 12:51 Dose: 100 mg Oxygen Devices in Use Now: None Appearance: elderly female , resting in bed , appears fatigued, no acute distress Eyes: No Scleral Icterus Ears/Nose/Mouth/Throat: Clear Oropharnyx, Mucous Membranes Moist Neck: NL Appearance and Movements; NL JVP, Trachea Midline Respiratory: Symmetrical Chest Expansion and Respiratory Effort, Clear to Auscultation Cardiovascular: NL Sounds; No Murmurs; No JVD, No Edema Abdominal: NL Sounds; No Tenderness; No Distention Extremities: No Edema, No Clubbing, Cyanosis Skin: No Rash or Ulcers Neurological: - - alert to verbal , few comprehensible words otherwise garbled speech, unable to determine level capacity Nutrition: Taking PO's - Nutrition: Malnutrition Diagnosis/Plan Malnutrition Assessment by Registered Dietitian: Malnutrition Assessment Clinical Characteristics Chronic,Severe Malnutrition Assessment: - Severe temporal muscle wasting and wasting of Criteria the buccal fat pad - Underweight, BMI 14.7 - 29# (24%) wt loss x past 2 years Malnutrition Assessment: Will send double portions on pt's meal trays. Interventions Will additionally send fruited kazakh yogurt daily @ 10:00 (140 kcals, 12 grams protein), and Ensure pudding daily @ 3:00 (170 kcals, 4 grams protein) to optimize calorie/protein intake. Malnutrition Assessment: Goals 1. Adequate PO intake to promote weight repletion and maintain hydration status 2. High protein meals/snacks as able Result Diagrams: 09/13/18 07:59 09/13/18 07:59 Additional Lab and Data: Laboratory Results - last 24 hr 09/13/18 09/13/18 07:59 07:59 WBC 5.0 RBC 4.60 Hgb 14.9 Hct 44 MCV 96 MCH 33 H MCHC 34 RDW 14 Plt Count 204 MPV 7.2 L Neut % (Auto) 74.8 Lymph % (Auto) 17.2 [place] % (Auto) 6.5 Eos % (Auto) 0.8 Baso % (Auto) 0.7 Absolute Neuts (auto) 3.8 Absolute Lymphs (auto) 0.9 L Absolute Monos (auto) 0.3 Absolute Eos (auto) 0 Absolute Basos (auto) 0 Absolute Nucleated RBC 0 Nucleated RBC % 0.1 Sodium 139 Potassium 3.6 Chloride 107 Carbon Dioxide 24 Anion Gap 8 BUN 16 Creatinine 0.88 Est GFR ( Amer) 76.2 Est GFR (Non-Af Amer) 63.0 BUN/Creatinine Ratio 18.2 Glucose 90 Calcium 8.9 Free T4 0.63 Free T3 2.50 Diagnostic Imaging: CTA head IMPRESSION: Calcific plaque is noted at the origin of the right internal carotid artery with approximately 50% stenosis. No intracranial aneurysmal dilatation or branch occlusion is noted. No evidence of carotid artery dissection or vertebral artery dissection is noted. MRI Brain: IMPRESSION: 1. LIMITED STUDY. 2. DIFFUSE INVOLUTIONAL CHANGE WITH DISPROPORTIONATE VOLUME LOSS INVOLVING THE MESIAL TEMPORAL LOBES BILATERALLY, GREATER ON THE LEFT THAN ON THE RIGHT, WHICH CAN BE ASSOCIATED WITH CERTAIN TYPES OF DEMENTIA. 3. MULTIFOCAL AND CONFLUENT ELEVATED T2/FLAIR SIGNAL IN THE PERIVENTRICULAR AND SUBCORTICAL WHITE MATTER. WHILE NONSPECIFIC, THE APPEARANCE IS SUGGESTIVE OF CHRONIC SMALL VESSEL ISCHEMIA. 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 - Patient Problems (1) Frontotemporal dementia Current Visit: Yes Status: Acute Code(s): G31.09 - OTHER FRONTOTEMPORAL DEMENTIA; F02.80 - DEMENTIA IN OTH DISEASES CLASSD ELSWHR W/O BEHAVRL DISTURB SNOMED Code(s): 788975333 Comment: Behaviorally appears calm but fatigued - Will continue markedly reduced seroquel dose for now but may need decrease more if patient continues with fatigue - suspect increased fatigue is related to depakote (2) Seizure Current Visit: Yes Status: Acute Code(s): R56.9 - UNSPECIFIED CONVULSIONS SNOMED Code(s): 65532280 Comment: No further seizure activity noted. continue Depakote ,may also help with behaviors. will need to follow up with neurology as an outpatient. (3) Subclinical hypothyroidism Current Visit: Yes Status: Acute Code(s): E03.9 - HYPOTHYROIDISM, UNSPECIFIED SNOMED Code(s): 70799150 Comment: Started on synthroid 12.5mcg daily. Recheck TSH and Free T4 in 4-6 weeks. (4) Hyperlipidemia Current Visit: No Status: Acute Code(s): E78.5 - HYPERLIPIDEMIA, UNSPECIFIED SNOMED Code(s): 68761092 Comment: Continue atorvastatin 10 mg daily. (5) Hypertension Current Visit: No Status: Acute Code(s): I10 - ESSENTIAL (PRIMARY) HYPERTENSION SNOMED Code(s): 68224603 Comment: Continue amlodipine. (6) DVT prophylaxis Current Visit: Yes Status: Acute Code(s): GHC4347 - SNOMED Code(s): 825790691 Comment: SQ heparin (7) DNR (do not resuscitate) Current Visit: Yes Status: Acute Status and Disposition: will need STR at discharge
[2018-09-16] MEDS: Levothyroxine TAB* 25 MCG TAB PO SCH (05:37)
[2018-09-16] MEDS: Heparin VIAL(*) 5000 UNITS/ML VIAL (FIVE THOUSAND) SUBCUT SCH ×3 (05:37→21:54)
[2018-09-16 07:02] LABS: BUN/Creatinine Ratio 39.2 (8-20); Calcium 8.8 mg/dL (8.6-10.3); EGFR Non-African American 76.9 (>60); Potassium 3.4 mmol/L (3.5-5.0)
[2018-09-16] MEDS: Divalproex DR TAB(*) 500 MG PO SCH ×2 (09:11→21:51)
[2018-09-16] MEDS: QUEtiapine TAB* 100 MG PO SCH ×2 (11:32→21:51)
--- NOTE | 2018-09-16 22:14 | PN ---
Subjective Date of Service: 09/16/18 Interval History: awake sitting in bed. responds with hi when greeted. seems more alert today. Responds no when asked if she has chest pain or shortness of breath. Patient remaining conversation continued with gibberish speech. Family History: Unchanged from Admission Social History: Unchanged from Admission Past Medical History: Unchanged from Admission Objective Active Medications: Divalproex Sodium (Depakote Dr Tab(*)) 500 mg PO 0800,2000 [facility] Last Admin: 09/16/18 21:51 Dose: 500 mg Heparin Sodium (Porcine) (Heparin Vial(*)) 5,000 units SUBCUT Q8HR [facility] Last Admin: 09/16/18 21:54 Dose: 5,000 units Levothyroxine Sodium (Synthroid Tab*) 12.5 mcg PO DAILY@0600 [facility] Last Admin: 09/16/18 05:37 Dose: 12.5 mcg Potassium Chloride (Klor-Con Liquid*) 40 meq PO DAILY [facility] Quetiapine Fumarate (Seroquel Tab*) 100 mg PO BEDTIME [facility] Last Admin: 09/16/18 21:51 Dose: 100 mg Quetiapine Fumarate (Seroquel Tab*) 100 mg PO 1200 [facility] Last Admin: 09/16/18 11:32 Dose: 100 mg Vital Signs - 8 hr 09/16/18 09/16/18 15:24 19:26 Temperature 98.4 F 97.7 F Pulse Rate 107 92 Respiratory 16 18 Rate Blood Pressure 110/71 123/74 (mmHg) O2 Sat by Pulse 96 100 Oximetry Oxygen Devices in Use Now: None Appearance: appears comfortable resting in bed, alert , no acute distress Eyes: No Scleral Icterus Ears/Nose/Mouth/Throat: Clear Oropharnyx, Mucous Membranes Moist Neck: NL Appearance and Movements; NL JVP, Trachea Midline Respiratory: Symmetrical Chest Expansion and Respiratory Effort, Clear to Auscultation Cardiovascular: NL Sounds; No Murmurs; No JVD, No Edema Abdominal: NL Sounds; No Tenderness; No Distention Lymphatic: No Cervical Adenopathy Extremities: No Edema, No Clubbing, Cyanosis Neurological: - - few clear words, mostly gibberish speech, unable to determine orientation Nutrition: Taking PO's - Nutrition: Malnutrition Diagnosis/Plan Malnutrition Assessment by Registered Dietitian: Malnutrition Assessment Clinical Characteristics Chronic,Severe Malnutrition Assessment: - Severe temporal muscle wasting and wasting of Criteria the buccal fat pad - Underweight, BMI 14.7 - 29# (24%) wt loss x past 2 years Malnutrition Assessment: Will send double portions on pt's meal trays. Interventions Will additionally send fruited bermudian yogurt daily @ 10:00 (140 kcals, 12 grams protein), and Ensure pudding daily @ 3:00 (170 kcals, 4 grams protein) to optimize calorie/protein intake. Malnutrition Assessment: Goals 1. Adequate PO intake to promote weight repletion and maintain hydration status 2. High protein meals/snacks as able Result Diagrams: 09/13/18 07:59 09/16/18 06:25 Additional Lab and Data: Laboratory Results - last 24 hr 09/13/18 09/13/18 07:59 07:59 WBC 5.0 RBC 4.60 Hgb 14.9 Hct 44 MCV 96 MCH 33 H MCHC 34 RDW 14 Plt Count 204 MPV 7.2 L Neut % (Auto) 74.8 Lymph % (Auto) 17.2 [place] % (Auto) 6.5 Eos % (Auto) 0.8 Baso % (Auto) 0.7 Absolute Neuts (auto) 3.8 Absolute Lymphs (auto) 0.9 L Absolute Monos (auto) 0.3 Absolute Eos (auto) 0 Absolute Basos (auto) 0 Absolute Nucleated RBC 0 Nucleated RBC % 0.1 Sodium 139 Potassium 3.6 Chloride 107 Carbon Dioxide 24 Anion Gap 8 BUN 16 Creatinine 0.88 Est GFR ( Amer) 76.2 Est GFR (Non-Af Amer) 63.0 BUN/Creatinine Ratio 18.2 Glucose 90 Calcium 8.9 Free T4 0.63 Free T3 2.50 Diagnostic Imaging: CTA head IMPRESSION: Calcific plaque is noted at the origin of the right internal carotid artery with approximately 50% stenosis. No intracranial aneurysmal dilatation or branch occlusion is noted. No evidence of carotid artery dissection or vertebral artery dissection is noted. MRI Brain: IMPRESSION: 1. LIMITED STUDY. 2. DIFFUSE INVOLUTIONAL CHANGE WITH DISPROPORTIONATE VOLUME LOSS INVOLVING THE MESIAL TEMPORAL LOBES BILATERALLY, GREATER ON THE LEFT THAN ON THE RIGHT, WHICH CAN BE ASSOCIATED WITH CERTAIN TYPES OF DEMENTIA. 3. MULTIFOCAL AND CONFLUENT ELEVATED T2/FLAIR SIGNAL IN THE PERIVENTRICULAR AND SUBCORTICAL WHITE MATTER. WHILE NONSPECIFIC, THE APPEARANCE IS SUGGESTIVE OF CHRONIC SMALL VESSEL ISCHEMIA. 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 - Patient Problems (1) Frontotemporal dementia Current Visit: Yes Status: Acute Code(s): G31.09 - OTHER FRONTOTEMPORAL DEMENTIA; F02.80 - DEMENTIA IN OTH DISEASES CLASSD ELSWHR W/O BEHAVRL DISTURB SNOMED Code(s): 142520851 Comment: Behaviorally appears calm more awake today - Will continue markedly reduced seroquel dose for now - suspect increased fatigue could be related to depakote (2) Seizure Current Visit: Yes Status: Acute Code(s): R56.9 - UNSPECIFIED CONVULSIONS SNOMED Code(s): 95626451 Comment: No further seizure activity noted. continue Depakote , remain calm will need to follow up with neurology as an outpatient. (3) Subclinical hypothyroidism Current Visit: Yes Status: Acute Code(s): E03.9 - HYPOTHYROIDISM, UNSPECIFIED SNOMED Code(s): 21046522 Comment: Started on synthroid 12.5mcg daily. Recheck TSH and Free T4 in 4-6 weeks. (4) Hyperlipidemia Current Visit: No Status: Acute Code(s): E78.5 - HYPERLIPIDEMIA, UNSPECIFIED SNOMED Code(s): 95458958 Comment: Continue atorvastatin 10 mg daily. (5) Hypertension Current Visit: No Status: Acute Code(s): I10 - ESSENTIAL (PRIMARY) HYPERTENSION SNOMED Code(s): 80970045 Comment: Continue amlodipine. (6) DVT prophylaxis Current Visit: Yes Status: Acute Code(s): NMI4220 - SNOMED Code(s): 307426304 Comment: SQ heparin (7) DNR (do not resuscitate) Current Visit: Yes Status: Acute Status and Disposition: will need STR at discharge, waiting for bed offer
[2018-09-17] MEDS: Heparin VIAL(*) 5000 UNITS/ML VIAL (FIVE THOUSAND) SUBCUT SCH ×3 (06:30→21:58)
[2018-09-17] MEDS: Levothyroxine TAB* 25 MCG TAB PO SCH (06:30)
--- NOTE | 2018-09-17 07:41 | PN ---
Subjective Date of Service: 09/17/18 Interval History: Pt only repeats "how are you" after I ask her that question. She doesn't answer any questions for me. Objective Active Medications: Divalproex Sodium (Depakote Dr Tab(*)) 500 mg PO 0800,2000 [facility] Last Admin: 09/16/18 21:51 Dose: 500 mg Heparin Sodium (Porcine) (Heparin Vial(*)) 5,000 units SUBCUT Q8HR [facility] Last Admin: 09/17/18 06:30 Dose: 5,000 units Levothyroxine Sodium (Synthroid Tab*) 12.5 mcg PO DAILY@0600 [facility] Last Admin: 09/17/18 06:30 Dose: 12.5 mcg Potassium Chloride (Klor-Con Liquid*) 40 meq PO DAILY [facility] Quetiapine Fumarate (Seroquel Tab*) 100 mg PO BEDTIME [facility] Last Admin: 09/16/18 21:51 Dose: 100 mg Quetiapine Fumarate (Seroquel Tab*) 100 mg PO 1200 [facility] Last Admin: 09/16/18 11:32 Dose: 100 mg Vital Signs - 8 hr 09/17/18 03:38 Temperature 99.1 F Pulse Rate 94 Respiratory 16 Rate Blood Pressure 125/63 (mmHg) O2 Sat by Pulse 97 Oximetry Oxygen Devices in Use Now: None Appearance: Elderly cachectic female lying in bed sleeping, awakens easily to voice, NAD Eyes: No Scleral Icterus Ears/Nose/Mouth/Throat: Mucous Membranes Moist Respiratory: Symmetrical Chest Expansion and Respiratory Effort, Clear to Auscultation Cardiovascular: NL Sounds; No Murmurs; No JVD, RRR, No Edema Abdominal: NL Sounds; No Tenderness; No Distention Extremities: No Clubbing, Cyanosis Skin: No Nodules or Sclerosis Neurological: - - alert, confused - Nutrition: Malnutrition Diagnosis/Plan Malnutrition Assessment by Registered Dietitian: Malnutrition Assessment Clinical Characteristics Chronic,Severe Malnutrition Assessment: - Severe temporal muscle wasting and wasting of Criteria the buccal fat pad - Underweight, BMI 14.7 - 29# (24%) wt loss x past 2 years Malnutrition Assessment: Will send double portions on pt's meal trays. Interventions Will additionally send fruited lithuanian yogurt daily @ 10:00 (140 kcals, 12 grams protein), and Ensure pudding daily @ 3:00 (170 kcals, 4 grams protein) to optimize calorie/protein intake. Malnutrition Assessment: Goals 1. Adequate PO intake to promote weight repletion and maintain hydration status 2. High protein meals/snacks as able Result Diagrams: 09/13/18 07:59 09/16/18 06:25 Additional Lab and Data: Laboratory Results - last 24 hr 09/13/18 09/13/18 07:59 07:59 WBC 5.0 RBC 4.60 Hgb 14.9 Hct 44 MCV 96 MCH 33 H MCHC 34 RDW 14 Plt Count 204 MPV 7.2 L Neut % (Auto) 74.8 Lymph % (Auto) 17.2 [place] % (Auto) 6.5 Eos % (Auto) 0.8 Baso % (Auto) 0.7 Absolute Neuts (auto) 3.8 Absolute Lymphs (auto) 0.9 L Absolute Monos (auto) 0.3 Absolute Eos (auto) 0 Absolute Basos (auto) 0 Absolute Nucleated RBC 0 Nucleated RBC % 0.1 Sodium 139 Potassium 3.6 Chloride 107 Carbon Dioxide 24 Anion Gap 8 BUN 16 Creatinine 0.88 Est GFR ( Amer) 76.2 Est GFR (Non-Af Amer) 63.0 BUN/Creatinine Ratio 18.2 Glucose 90 Calcium 8.9 Free T4 0.63 Free T3 2.50 Diagnostic Imaging: CTA head IMPRESSION: Calcific plaque is noted at the origin of the right internal carotid artery with approximately 50% stenosis. No intracranial aneurysmal dilatation or branch occlusion is noted. No evidence of carotid artery dissection or vertebral artery dissection is noted. MRI Brain: IMPRESSION: 1. LIMITED STUDY. 2. DIFFUSE INVOLUTIONAL CHANGE WITH DISPROPORTIONATE VOLUME LOSS INVOLVING THE MESIAL TEMPORAL LOBES BILATERALLY, GREATER ON THE LEFT THAN ON THE RIGHT, WHICH CAN BE ASSOCIATED WITH CERTAIN TYPES OF DEMENTIA. 3. MULTIFOCAL AND CONFLUENT ELEVATED T2/FLAIR SIGNAL IN THE PERIVENTRICULAR AND SUBCORTICAL WHITE MATTER. WHILE NONSPECIFIC, THE APPEARANCE IS SUGGESTIVE OF CHRONIC SMALL VESSEL ISCHEMIA. 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 - Patient Problems (1) Seizure Current Visit: Yes Status: Acute Code(s): R56.9 - UNSPECIFIED CONVULSIONS SNOMED Code(s): 82064786 Comment: No further seizure activity. Continue depakote at current dose. Will check depakote level tomorrow. Follow up with neurology as outpatient. (2) Subclinical hypothyroidism Current Visit: Yes Status: Acute Code(s): E03.9 - HYPOTHYROIDISM, UNSPECIFIED SNOMED Code(s): 57502534 Comment: Continue synthroid 12.5mcg daily. Recheck TSH and Free T4 in 4-6 weeks. (3) Frontotemporal dementia Current Visit: Yes Status: Acute Code(s): G31.09 - OTHER FRONTOTEMPORAL DEMENTIA; F02.80 - DEMENTIA IN OTH DISEASES CLASSD ELSWHR W/O BEHAVRL DISTURB SNOMED Code(s): 769097286 Comment: Behavioraly the patient has been mostly appropriate. Continue seroquel at the current dose and depakote. (4) DVT prophylaxis Current Visit: Yes Status: Acute Code(s): UGU8249 - SNOMED Code(s): 382838382 Comment: SQ heparin (5) DNR (do not resuscitate) Current Visit: Yes Status: Acute Status and Disposition: .
[2018-09-17] MEDS: Potassium Chloride LIQUID* 20 MEQ PACKET PO SCH (09:52)
[2018-09-17] MEDS: Divalproex DR TAB(*) 500 MG PO SCH ×2 (09:53→21:58)
[2018-09-17] MEDS: QUEtiapine TAB* 100 MG PO SCH ×2 (12:49→21:58)
[2018-09-18] MEDS: Heparin VIAL(*) 5000 UNITS/ML VIAL (FIVE THOUSAND) SUBCUT SCH ×3 (05:38→21:00)
[2018-09-18] MEDS: Levothyroxine TAB* 25 MCG TAB PO SCH (05:40)
--- NOTE | 2018-09-18 07:20 | PN ---
Subjective Date of Service: 09/18/18 Interval History: Pt is feeling well. SHe denies any pain. She is alert and answers a few questions appropriately. Family History: Unchanged from Admission Social History: Unchanged from Admission Past Medical History: Unchanged from Admission Objective Active Medications: Divalproex Sodium (Depakote Dr Tab(*)) 500 mg PO 0800,2000 [facility] Last Admin: 09/17/18 21:58 Dose: 500 mg Heparin Sodium (Porcine) (Heparin Vial(*)) 5,000 units SUBCUT Q8HR [facility] Last Admin: 09/18/18 05:38 Dose: 5,000 units Levothyroxine Sodium (Synthroid Tab*) 12.5 mcg PO DAILY@0600 [facility] Last Admin: 09/18/18 05:40 Dose: 12.5 mcg Potassium Chloride (Klor-Con Liquid*) 40 meq PO DAILY [facility] Last Admin: 09/17/18 09:52 Dose: 40 meq Quetiapine Fumarate (Seroquel Tab*) 100 mg PO BEDTIME [facility] Last Admin: 09/17/18 21:58 Dose: 100 mg Quetiapine Fumarate (Seroquel Tab*) 100 mg PO 1200 [facility] Last Admin: 09/17/18 12:49 Dose: 100 mg Vital Signs - 8 hr 09/18/18 00:37 Temperature 97.6 F Pulse Rate 100 Respiratory 17 Rate Blood Pressure 118/66 (mmHg) O2 Sat by Pulse 99 Oximetry Oxygen Devices in Use Now: None Appearance: Elderly cachectic female sitting up in bed,NAD Eyes: No Scleral Icterus Ears/Nose/Mouth/Throat: Mucous Membranes Moist Respiratory: Symmetrical Chest Expansion and Respiratory Effort, Clear to Auscultation Cardiovascular: NL Sounds; No Murmurs; No JVD, RRR, No Edema Abdominal: NL Sounds; No Tenderness; No Distention Extremities: No Clubbing, Cyanosis Skin: No Nodules or Sclerosis Neurological: - - pleasantly confused - Nutrition: Malnutrition Diagnosis/Plan Malnutrition Assessment by Registered Dietitian: Malnutrition Assessment Clinical Characteristics Chronic,Severe Malnutrition Assessment: - Severe temporal muscle wasting and wasting of Criteria the buccal fat pad - Underweight, BMI 14.7 - 29# (24%) wt loss x past 2 years Malnutrition Assessment: Will send double portions on pt's meal trays. Interventions Will additionally send fruited nepali yogurt daily @ 10:00 (140 kcals, 12 grams protein), and Ensure pudding daily @ 3:00 (170 kcals, 4 grams protein) to optimize calorie/protein intake. Malnutrition Assessment: Goals 1. Adequate PO intake to promote weight repletion and maintain hydration status 2. High protein meals/snacks as able Result Diagrams: 09/13/18 07:59 09/16/18 06:25 Additional Lab and Data: Laboratory Results - last 24 hr 09/13/18 09/13/18 07:59 07:59 WBC 5.0 RBC 4.60 Hgb 14.9 Hct 44 MCV 96 MCH 33 H MCHC 34 RDW 14 Plt Count 204 MPV 7.2 L Neut % (Auto) 74.8 Lymph % (Auto) 17.2 [place] % (Auto) 6.5 Eos % (Auto) 0.8 Baso % (Auto) 0.7 Absolute Neuts (auto) 3.8 Absolute Lymphs (auto) 0.9 L Absolute Monos (auto) 0.3 Absolute Eos (auto) 0 Absolute Basos (auto) 0 Absolute Nucleated RBC 0 Nucleated RBC % 0.1 Sodium 139 Potassium 3.6 Chloride 107 Carbon Dioxide 24 Anion Gap 8 BUN 16 Creatinine 0.88 Est GFR ( Amer) 76.2 Est GFR (Non-Af Amer) 63.0 BUN/Creatinine Ratio 18.2 Glucose 90 Calcium 8.9 Free T4 0.63 Free T3 2.50 Diagnostic Imaging: CTA head IMPRESSION: Calcific plaque is noted at the origin of the right internal carotid artery with approximately 50% stenosis. No intracranial aneurysmal dilatation or branch occlusion is noted. No evidence of carotid artery dissection or vertebral artery dissection is noted. MRI Brain: IMPRESSION: 1. LIMITED STUDY. 2. DIFFUSE INVOLUTIONAL CHANGE WITH DISPROPORTIONATE VOLUME LOSS INVOLVING THE MESIAL TEMPORAL LOBES BILATERALLY, GREATER ON THE LEFT THAN ON THE RIGHT, WHICH CAN BE ASSOCIATED WITH CERTAIN TYPES OF DEMENTIA. 3. MULTIFOCAL AND CONFLUENT ELEVATED T2/FLAIR SIGNAL IN THE PERIVENTRICULAR AND SUBCORTICAL WHITE MATTER. WHILE NONSPECIFIC, THE APPEARANCE IS SUGGESTIVE OF CHRONIC SMALL VESSEL ISCHEMIA. 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 - Patient Problems (1) Seizure Current Visit: Yes Status: Acute Code(s): R56.9 - UNSPECIFIED CONVULSIONS SNOMED Code(s): 17365403 Comment: No further seizure activity. Continue depakote at current dose. Depakote level pending this AM. Follow up with neurology as outpatient. (2) Subclinical hypothyroidism Current Visit: Yes Status: Acute Code(s): E03.9 - HYPOTHYROIDISM, UNSPECIFIED SNOMED Code(s): 72952147 Comment: Continue synthroid 12.5mcg daily. Recheck TSH and Free T4 in 4-6 weeks. (3) Frontotemporal dementia Current Visit: Yes Status: Acute Code(s): G31.09 - OTHER FRONTOTEMPORAL DEMENTIA; F02.80 - DEMENTIA IN OTH DISEASES CLASSD ELSWHR W/O BEHAVRL DISTURB SNOMED Code(s): 982946066 Comment: No behavioral issues reported by nursing. Continue current dose of seroquel. (4) DVT prophylaxis Current Visit: Yes Status: Acute Code(s): EBF8183 - SNOMED Code(s): 019023764 Comment: SQ heparin (5) DNR (do not resuscitate) Current Visit: Yes Status: Acute Status and Disposition: .
[2018-09-18] MEDS: Divalproex DR TAB(*) 500 MG PO SCH ×2 (09:16→19:44)
[2018-09-18] MEDS: Potassium Chloride LIQUID* 20 MEQ PACKET PO SCH (09:19)
[2018-09-18] MEDS: QUEtiapine TAB* 100 MG PO SCH ×2 (11:50→19:44)
[2018-09-19] MEDS: Heparin VIAL(*) 5000 UNITS/ML VIAL (FIVE THOUSAND) SUBCUT SCH ×2 (05:33→13:38)
[2018-09-19] MEDS: Levothyroxine TAB* 25 MCG TAB PO SCH (05:33)
[2018-09-19] MEDS: Divalproex DR TAB(*) 500 MG PO SCH (08:50)
[2018-09-19] MEDS: Potassium Chloride LIQUID* 20 MEQ PACKET PO SCH (08:51)
[2018-09-19] MEDS ORDERED: QUEtiapine TAB* 25 MG PO SCH (09:00)
--- NOTE | 2018-09-19 09:09 | PN ---
Subjective Date of Service: 09/19/18 Interval History: Pt is feeling ok. She is being fed by her personal aide. No reported agitation overnight. Her family however witnessed what they describe as severe agitation yesterday afternoon with the aides trying to clean her up. They requested an AM dose of seroquel be added back- we discussed and settled on restarting a low dose of 25mg qAM. Family History: Unchanged from Admission Social History: Unchanged from Admission Past Medical History: Unchanged from Admission Objective Active Medications: Divalproex Sodium (Depakote Dr Tab(*)) 500 mg PO 0800,2000 [facility] Last Admin: 09/19/18 08:50 Dose: 500 mg Heparin Sodium (Porcine) (Heparin Vial(*)) 5,000 units SUBCUT Q8HR [facility] Last Admin: 09/19/18 05:33 Dose: 5,000 units Levothyroxine Sodium (Synthroid Tab*) 12.5 mcg PO DAILY@0600 [facility] Last Admin: 09/19/18 05:33 Dose: 12.5 mcg Potassium Chloride (Klor-Con Liquid*) 40 meq PO DAILY [facility] Last Admin: 09/19/18 08:51 Dose: 40 meq Quetiapine Fumarate (Seroquel Tab*) 100 mg PO BEDTIME [facility] Last Admin: 09/18/18 19:44 Dose: 100 mg Quetiapine Fumarate (Seroquel Tab*) 100 mg PO 1200 [facility] Last Admin: 09/18/18 11:50 Dose: 100 mg Quetiapine Fumarate (Seroquel Tab*) 25 mg PO DAILY [facility] Last Admin: 09/19/18 08:51 Dose: 25 mg Vital Signs - 8 hr 09/19/18 09/19/18 07:15 07:52 Temperature 97.8 F Pulse Rate 85 Respiratory 16 19 Rate Blood Pressure 145/82 (mmHg) O2 Sat by Pulse 98 100 Oximetry Oxygen Devices in Use Now: None Appearance: Elderly cachectic female sitting up in bed, NAD Eyes: No Scleral Icterus Ears/Nose/Mouth/Throat: Mucous Membranes Moist Respiratory: Symmetrical Chest Expansion and Respiratory Effort, Clear to Auscultation Cardiovascular: NL Sounds; No Murmurs; No JVD, RRR, No Edema Abdominal: NL Sounds; No Tenderness; No Distention Extremities: No Clubbing, Cyanosis Skin: No Nodules or Sclerosis Neurological: - - alert, answers a couple questions clearly but the rest of her speech is gibberish - Nutrition: Malnutrition Diagnosis/Plan Malnutrition Assessment by Registered Dietitian: Malnutrition Assessment Clinical Characteristics Chronic,Severe Malnutrition Assessment: - Severe temporal muscle wasting and wasting of Criteria the buccal fat pad - Underweight, BMI 14.7 - 29# (24%) wt loss x past 2 years Malnutrition Assessment: Will send double portions on pt's meal trays. Interventions Will additionally send fruited maori yogurt daily @ 10:00 (140 kcals, 12 grams protein), and Ensure pudding daily @ 3:00 (170 kcals, 4 grams protein) to optimize calorie/protein intake. Malnutrition Assessment: Goals 1. Adequate PO intake to promote weight repletion and maintain hydration status 2. High protein meals/snacks as able Result Diagrams: 09/13/18 07:59 09/16/18 06:25 Additional Lab and Data: Laboratory Results - last 24 hr 09/13/18 09/13/18 07:59 07:59 WBC 5.0 RBC 4.60 Hgb 14.9 Hct 44 MCV 96 MCH 33 H MCHC 34 RDW 14 Plt Count 204 MPV 7.2 L Neut % (Auto) 74.8 Lymph % (Auto) 17.2 [place] % (Auto) 6.5 Eos % (Auto) 0.8 Baso % (Auto) 0.7 Absolute Neuts (auto) 3.8 Absolute Lymphs (auto) 0.9 L Absolute Monos (auto) 0.3 Absolute Eos (auto) 0 Absolute Basos (auto) 0 Absolute Nucleated RBC 0 Nucleated RBC % 0.1 Sodium 139 Potassium 3.6 Chloride 107 Carbon Dioxide 24 Anion Gap 8 BUN 16 Creatinine 0.88 Est GFR ( Amer) 76.2 Est GFR (Non-Af Amer) 63.0 BUN/Creatinine Ratio 18.2 Glucose 90 Calcium 8.9 Free T4 0.63 Free T3 2.50 Diagnostic Imaging: CTA head IMPRESSION: Calcific plaque is noted at the origin of the right internal carotid artery with approximately 50% stenosis. No intracranial aneurysmal dilatation or branch occlusion is noted. No evidence of carotid artery dissection or vertebral artery dissection is noted. MRI Brain: IMPRESSION: 1. LIMITED STUDY. 2. DIFFUSE INVOLUTIONAL CHANGE WITH DISPROPORTIONATE VOLUME LOSS INVOLVING THE MESIAL TEMPORAL LOBES BILATERALLY, GREATER ON THE LEFT THAN ON THE RIGHT, WHICH CAN BE ASSOCIATED WITH CERTAIN TYPES OF DEMENTIA. 3. MULTIFOCAL AND CONFLUENT ELEVATED T2/FLAIR SIGNAL IN THE PERIVENTRICULAR AND SUBCORTICAL WHITE MATTER. WHILE NONSPECIFIC, THE APPEARANCE IS SUGGESTIVE OF CHRONIC SMALL VESSEL ISCHEMIA. 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 - Patient Problems (1) Seizure Current Visit: Yes Status: Acute Code(s): R56.9 - UNSPECIFIED CONVULSIONS SNOMED Code(s): 51148057 Comment: No further seizure activity. Continue depakote at current dose. Depakote level in therapeutic range at 87. Will need recheck in a couple weeks to ensure it is stable. Follow up with neurology as an outpatient. (2) Subclinical hypothyroidism Current Visit: Yes Status: Acute Code(s): E03.9 - HYPOTHYROIDISM, UNSPECIFIED SNOMED Code(s): 30676433 Comment: Continue synthroid 12.5mcg daily. Recheck TSH and Free T4 in 4-5 weeks. (3) Frontotemporal dementia Current Visit: Yes Status: Acute Code(s): G31.09 - OTHER FRONTOTEMPORAL DEMENTIA; F02.80 - DEMENTIA IN OTH DISEASES CLASSD ELSWHR W/O BEHAVRL DISTURB SNOMED Code(s): 524969832 Comment: Behaviorally pt was agitated yesterday afternoon while getting cleaned up. Low dose seroquel (25mg) added back in the AM in addition to 100mg at noon and bedtime. (4) DVT prophylaxis Current Visit: Yes Status: Acute Code(s): NUN8494 - SNOMED Code(s): 076031216 Comment: SQ heparin (5) DNR (do not resuscitate) Current Visit: Yes Status: Acute Status and Disposition: .
--- NOTE | 2018-09-19 11:44 | DS ---
CC: Dr. Hudson * DATE OF ADMISSION: 09/10/2018. DATE OF DISCHARGE: 09/19/2018. PRIMARY CARE PHYSICIAN: Dr. Hudson. PRINCIPAL DIAGNOSES: 1. Seizure. 2. Advanced dementia. SECONDARY DIAGNOSIS: Subclinical hypothyroidism. DISCHARGE MEDICATIONS: 1. Seroquel 25 mg p.o. q.a.m., 100 mg at noon, 100 mg at bedtime. 2. Potassium Chloride 20 mEq p.o. daily. 3. Levothyroxine 12.5 mcg p.o. daily. 4. Depakote DR 500 mg p.o. twice daily. HOSPITAL COURSE: Ms. Garner is a 72-year-old female who presented to the emergency room on 09/10/2018 with complaints of two minutes of seizure-like activity. The patient was reportedly sitting in her wheelchair when her leg was noted to be jerking. She then leaned forward and began to fall from the wheelchair; however, her [id number] was able to catch her. Her body, arms , and legs all stiffened. The patient was noted to be unresponsive to any stimuli with a left-sided facial droop and drooling when EMS arrived. The patient ultimately was seen in consultation by Neurology. It was recommended that the patient initially be started on Keppra; however, this was subsequently changed to Depakote due to behavioral issues. The patient was ruled out essentially for an acute infarct with MRI. The patient has done well on the Depakote and reduced dose of Seroquel. The patient behaviorally has been appropriate. Severe agitation has been an issue for the patient at home. There was one episode of agitation on the early afternoon of 09/18/2018 when the patient was getting cleaned up. The patient's [id number] stated that she wanted an a.m. dose of Seroquel be added back. I informed her since there had not been significant agitation, I was not going to add back 100 mg in the morning, but we decided to start 25 mg in the morning. The patient likely can have this dose reduced if she remains stable at [facility]. Also during the hospitalization, the patient was found to have likely subclinical hypothyroidism. Her TSH was high at 9.33 with a normal free T4. The patient was started on 12.5 mcg of Synthroid daily. A follow-up TSH and free T4 should be obtained in the next four to five weeks. Also of note, during the hospitalization the patient if given Styrofoam cups or plates or plastic silverware, she would try to eat this. The patient's family has requested that the patient be supervised for all meals. The patient has been eating quite well. FOLLOW-UP: The patient is being discharged to [facility] today, 09/19/2018. ACTIVITY LEVEL: As tolerated. DIET: Regular. CONDITION ON DISCHARGE: Stable. Thirty-five minutes were spent discharging this patient. [id number]/[facility] #: [id number] LEONARDO
[2018-09-19] MEDS: QUEtiapine TAB* 100 MG PO SCH (12:05)
[2018-09-19 12:51] VITALS: BP 101/63
== END 2018-09-19 16:48 | DRG 100 ==
LOC: ED 10:01 → MEDTELE 12:11
PROVIDERS: ADMIT Internal Medicine; ATTEND Hospitalist
PROC: 4A10X4Z Monitoring of Central Nervous Electrical Activity, External Approach (ICD-10-PCS; principal; 2018-09-11)
DX: R56.9 Unspecified convulsions (principal); E43 Unspecified severe protein-calorie malnutrition; I67.82 Cerebral ischemia; N17.9 Acute kidney failure, unspecified; Z68.1 Body mass index [BMI] 19.9 or less, adult; F03.91 Unspecified dementia, unspecified severity, with behavioral disturbance; K59.00 Constipation, unspecified; E78.5 Hyperlipidemia, unspecified; Z66 Do not resuscitate; I10 Essential (primary) hypertension; R29.810 Facial weakness; E86.0 Dehydration; E78.00 Pure hypercholesterolemia, unspecified; M81.0 Age-related osteoporosis without current pathological fracture; E02 Subclinical iodine-deficiency hypothyroidism; R62.7 Adult failure to thrive; E03.9 Hypothyroidism, unspecified; I65.22 Occlusion and stenosis of left carotid artery; Z99.3 Dependence on wheelchair; Z88.8 Allergy status to other drugs, medicaments and biological substances; Z87.891 Personal history of nicotine dependence; Z82.49 Family history of ischemic heart disease and other diseases of the circulatory system
CPT/HCPCS: 36415; 70450; 70496; 70498; 70551; 71045; 80048; 80053; 80061; 80164; 81003; 83605; 84439; 84443; 84481; 84484; 85025; 85610; 85730; 86850; 86900; 86901; 93005; 95816; 99284; A9270-GY; G8978-GP-CK; G8979-GP-CH; G8987-GO-CM; G8988-GO-CL; J1644; J2060; Q9967